=== PATIENT | male | born 1930 | race Caucasian/White ===

== ENCOUNTER → 2017-06-06 | Day surgery (SDC) | payer MEDICARE, OTHER | LOC: JD.LAB 13:20 | PROVIDERS: ATTEND Orthopaedic Surgery | DX: Z22.322 Carrier or suspected carrier of Methicillin resistant Staphylococcus aureus (principal); M17.12 Unilateral primary osteoarthritis, left knee | CPT/HCPCS: 87641 ==

== ENCOUNTER 2017-06-11 12:59 | Emergency (ER) | payer MEDICARE, OTHER ==
[2017-06-11] MEDS ORDERED: Sodium Chloride 0.9% 10 ML Syringe FLUSH PRN (13:32)
--- NOTE | 2017-06-11 15:20 | EDM.PDOC ---
ED HPI GENERAL MEDICAL PROBLEM - General Chief Complaint: Chest Pain Stated Complaint: CHEST PAIN Time Seen by Provider: 06/11/17 13:32 Source of Information: Reports: Patient, RN Notes Reviewed - History of Present Illness INITIAL COMMENTS - FREE TEXT/NARRATIVE: 86-year-old gentleman comes in with left lower anterior chest discomfort. He was out doing some yard work this morning about 3 hours ago when he did have onset of symptoms. He describes this as a weight or heaviness across the left lower part of his chest without radiation. He was mildly short of breath but that is past. The discomfort now is very mild but still present. No abdominal pain, nausea vomiting or diaphoresis. He does have history of hypertension. He does not have known history of coronary artery disease and no history of diabetes. He does not smoke Left Chest Pain Score (Numeric/FACES): 6 - Related Data Allergies Allergy/AdvReac Type Severity Reaction Status Date / Time No Known Allergies Allergy Verified 06/11/17 13:12 Home Meds: Home Meds Finasteride [Proscar] 5 mg PO DAILY 06/15/15 [History] Latanoprost 2.5 ml OP DAILY 06/15/15 [History] Levothyroxine Sodium [Synthroid] 112 mcg PO DAILY 06/15/15 [History] Losartan [Cozaar] 25 mg PO DAILY 06/15/15 [History] Omeprazole 20 mg PO DAILY 06/15/15 [History] Tamsulosin [Flomax] 0.4 mg PO DAILY 06/15/15 [History] Simvastatin [Zocor] 20 mg PO BEDTIME 05/24/16 [History] Past Medical History HEENT History: Reports: Cataract, Retinal Detachment Other HEENT History: wears glasses Cardiovascular History: Reports: Heart Failure, High Cholesterol, Hypertension Other Cardiovascular History: edema, dysrhytmias Respiratory History: Reports: None Gastrointestinal History: Reports: Colon Polyp, GERD, Hiatal Hernia, Other (See Below) Other Gastrointestinal History: Loera's esophagus, epigstric pain, umbilico hernia Genitourinary History: Reports: BPH, Renal Disease Other Genitourinary History: stage two renal disease Musculoskeletal History: Reports: Other (See Below) Other Musculoskeletal History: plantar fascitis Neurological History: Reports: None Psychiatric History: Reports: None Endocrine/Metabolic History: Reports: Hypothyroidism Hematologic History: Reports: Other (See Below) Other Hematologic History: thrombocytopenia Immunologic History: Reports: None 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 Dermatologic History: Reports: None Other Dermatologic History: Atypical mole - Infectious Disease History Infectious Disease History: Reports: None - Past Surgical History HEENT Surgical History: Reports: Detached Retina, Naso-Sinus Surgery Male Surgical History: Reports: None Endocrine Surgical History: Reports: None Musculoskeletal Surgical History: Reports: None Dermatological Surgical History: Reports: None Social & Family History - Family History Family Medical History: Noncontributory Oncologic: Reports: Prostate - Tobacco Use Smoking Status *Q: Former Smoker Years of Tobacco use: 20 Used Tobacco, but Quit: Yes Month Tobacco Last Used: 45 years ago Second Hand Smoke Exposure: No - Caffeine Use Caffeine Use: Reports: Coffee - Recreational Drug Use Recreational Drug Use: No - Living Situation & Occupation Living situation: Reports: , with Spouse Occupation: Retired ED ROS GENERAL - Review of Systems Review Of Systems: See Below Constitutional: Denies: Fever, Chills, Diaphoresis HEENT: Denies: Sinus Problem, Throat Pain Respiratory: Reports: Shortness of Breath (Mild). Denies: Pleuritic Chest Pain Cardiovascular: Reports: Chest Pain (, gone). Denies: Lightheadedness, Palpitations, Syncope GI/Abdominal: Denies: Abdominal Pain, Nausea, Vomiting Musculoskeletal: Denies: Neck Pain, Shoulder Pain, Arm Pain, Back Pain Skin: Reports: No Symptoms Neurological: Reports: No Symptoms ED EXAM, GENERAL - Physical Exam Exam: See Below General Appearance: Alert, No Apparent Distress Eye Exam: Bilateral Eye: PERRL Throat/Mouth: Normal Inspection, Normal Oropharynx Head: Atraumatic. No: Facial Swelling Neck: Supple, Full Range of Motion, Other. No: Lymphadenopathy (L), Lymphadenopathy (R) Respiratory/Chest: No Respiratory Distress (No JVD), Lungs Clear, Normal Breath Sounds, Chest Non-Tender Cardiovascular: Regular Rate, Rhythm GI/Abdominal: Soft, Non-Tender. No: Guarding Back Exam: Normal Inspection. No: CVA Tenderness (L), CVA Tenderness (R) Extremities: Normal Inspection, Normal Range of Motion Neurological: Oriented, No Motor/Sensory Deficits Skin Exam: Warm, Dry, Normal Color EKG INTERPRETATION EKG Date: 06/11/17 Rhythm: NSR P-Wave: Present QRS: Normal ST-T: Normal Course - Vital Signs Last Recorded V/S: Last Vital Signs Temp 97.5 F 06/11/17 13:08 Pulse 72 06/11/17 14:22 Resp 14 06/11/17 13:08 BP 183/94 H 06/11/17 14:22 Pulse Ox 94 L 06/11/17 13:08 - Orders/Labs/Meds Orders: Active Orders 24 hr Category Date Time Status EKG 12 Lead [EKG Documentation Completion] [] STAT Care 06/11/17 13:13 Active Peripheral IV Care [RC] . DIRECTED Care 06/11/17 13:34 Active Sodium Chloride 0.9% [Saline Flush] Med 06/11/17 13:32 Active 10 ml FLUSH ASDIRECTED PRN Peripheral IV Insertion Adult [OM.PC] Stat Oth 06/11/17 13:34 Ordered Medication Orders Sodium Chloride (Saline Flush) 10 ml FLUSH ASDIRECTED PRN PRN Reason: Keep Vein Open Last Admin: 06/11/17 14:04 Dose: 10 ml Labs: Laboratory Tests 06/11/17 06/11/17 06/11/17 Range/Units 13:11 13:11 13:11 WBC 7.19 (4.23-9.07) K/mm3 RBC 5.08 (4.63-6.08) M/mm3 Hgb 16.2 (13.7-17.5) gm/L Hct 47.8 (40.1-51.0) % MCV 94.1 H (79.0-92.2) fl MCH 31.9 (25.7-32.2) pg MCHC 33.9 (32.2-35.5) g/dl RDW Std Deviation 45.1 H (35.1-43.9) fL Plt Count 177 (163-337) K/mm3 MPV 10.6 (9.4-12.3) fl Neut % (Auto) 68.9 H (34.0-67.9) % Lymph % (Auto) 21.3 L (21.8-53.1) % Parmer % (Auto) 9.0 (5.3-12.2) % Eos % (Auto) 0.4 L (0.8-7.0) Baso % (Auto) 0.1 (0.1-1.2) % Neut # (Auto) 4.95 (1.78-5.38) K/mm3 Lymph # (Auto) 1.53 (1.32-3.57) K/mm3 [place]mer # (Auto) 0.65 (0.30-0.82) K/mm3 Eos # (Auto) 0.03 L (0.04-0.54) K/mm3 Baso # (Auto) 0.01 (0.01-0.08) K/mm3 Sodium 141 (136-145) mEq/L Potassium 4.2 (3.5-5.1) mEq/L Chloride 106 (98-107) mEq/L Carbon Dioxide 26 (21-32) mEq/L Anion Gap 13.2 (5-15) BUN 15 (7-18) mg/dL Creatinine 1.2 (0.7-1.3) mg/dL Est Cr Clr Drug Dosing 48.81 mL/min Estimated GFR (MDRD) 58 (>60) mL/min BUN/Creatinine Ratio 12.5 L (14-18) Glucose 106 (83-115) mg/dL Calcium 9.8 (8.5-10.1) mg/dL Total Bilirubin 0.9 (0.2-1.0) mg/dL AST 16 (15-37) U/L ALT 28 (16-63) U/L Alkaline Phosphatase 93 (46-116) U/L Troponin I 0.018 (0.00-0.056) ng/mL B-Natriuretic Peptide < 15 (0-100) pg/mL Total Protein 6.7 (6.4-8.2) g/dl Albumin 3.7 (3.4-5.0) g/dl Globulin 3.0 gm/dL Albumin/Globulin Ratio 1.2 (1-2) 06/11/17 Range/Units 15:36 WBC (4.23-9.07) K/mm3 RBC (4.63-6.08) M/mm3 Hgb (13.7-17.5) gm/L Hct (40.1-51.0) % MCV (79.0-92.2) fl MCH (25.7-32.2) pg MCHC (32.2-35.5) g/dl RDW Std Deviation (35.1-43.9) fL Plt Count (163-337) K/mm3 MPV (9.4-12.3) fl Neut % (Auto) (34.0-67.9) % Lymph % (Auto) (21.8-53.1) % [place]mer % (Auto) (5.3-12.2) % Eos % (Auto) (0.8-7.0) Baso % (Auto) (0.1-1.2) % Neut # (Auto) (1.78-5.38) K/mm3 Lymph # (Auto) (1.32-3.57) K/mm3 [place]mer # (Auto) (0.30-0.82) K/mm3 Eos # (Auto) (0.04-0.54) K/mm3 Baso # (Auto) (0.01-0.08) K/mm3 Sodium (136-145) mEq/L Potassium (3.5-5.1) mEq/L Chloride (98-107) mEq/L Carbon Dioxide (21-32) mEq/L Anion Gap (5-15) BUN (7-18) mg/dL Creatinine (0.7-1.3) mg/dL Est Cr Clr Drug Dosing mL/min Estimated GFR (MDRD) (>60) mL/min BUN/Creatinine Ratio (14-18) Glucose (83-115) mg/dL Calcium (8.5-10.1) mg/dL Total Bilirubin (0.2-1.0) mg/dL AST (15-37) U/L ALT (16-63) U/L Alkaline Phosphatase (46-116) U/L Troponin I 0.017 (0.00-0.056) ng/mL B-Natriuretic Peptide (0-100) pg/mL Total Protein (6.4-8.2) g/dl Albumin (3.4-5.0) g/dl Globulin gm/dL Albumin/Globulin Ratio (1-2) Meds: Medications Generic Name Dose Route Start Last Admin Trade Name Freq PRN Reason Stop Dose Admin Sodium Chloride 10 ml 06/11/17 13:32 06/11/17 14:04 Saline Flush FLUSH 10 ml ASDIRECTED PRN Administration Keep Vein Open - Re-Assessments/Exams Free Text/Narrative Re-Assessment/Exam: 06/11/17 15:23 Initial troponin came back 0.018. Patient still does have very slight lower left anterior chest discomfort. I did want to given aspirin but he is scheduled for knee replacement next week. He has been strictly informed he is not to take any type of aspirin, anti-inflammatory or other blood thinner type medication. We will hold off on aspirin for now. We'll plan to do a repeat troponin around 2 -1/2 hours after his initial troponin was drawn. 06/11/17 16:55. Repeat troponin came back 0.017. He is resting pain-free, quality assurance monitor body showed sinus rhythm with no significant ectopy. He wants to go home. He is scheduled for total knee replacement next Sunday 7 days from now. We are going to try see if we can get an appointment for him to see Dr. Dong, his regular medical provider for tomorrow or Sunday. Departure - Departure Time of Disposition: 16:53 Disposition: Home, Self-Care 01 Condition: Fair Clinical Impression: Atypical chest pain Instructions: Chest Wall Pain Referrals: Carl Esquivel MD [Primary Care Provider] - Forms: ED Department Discharge Additional Instructions: Rest, drink plenty of water to maintain hydration, avoid exertional activity the remainder of this week, avoid severe heat exposure, you have an appointment to see Dr. Dong in follow-up June 14 at 4:15 PM, return to ED as needed if symptoms recurring or worsening in any way - My Orders Last 24 Hours: My Active Orders 06/11/17 13:13 EKG 12 Lead [EKG Documentation Completion] [RC] STAT 06/11/17 13:32 Sodium Chloride 0.9% [Saline Flush] 10 ml FLUSH ASDIRECTED PRN 06/11/17 13:34 Peripheral IV Care [RC] . DIRECTED Peripheral IV Insertion Adult [OM.PC] Stat - Assessment/Plan Last 24 Hours: My Active Orders 06/11/17 13:13 EKG 12 Lead [EKG Documentation Completion] [RC] STAT 06/11/17 13:32 Sodium Chloride 0.9% [Saline Flush] 10 ml FLUSH ASDIRECTED PRN 06/11/17 13:34 Peripheral IV Care [RC] . DIRECTED Peripheral IV Insertion Adult [OM.PC] Stat
--- NOTE | 2017-06-11 15:44 | CR ---
Chest: Portable view of the chest was obtained. Comparison: Previous chest x-ray of 12/25/15. Heart size appears within normal limits for portable technique. Tortuous thoracic aorta is seen. Slight linear scarring noted within the right mid to lower lung. Lungs otherwise are clear. Bony structures are grossly intact. Previous right shoulder surgery is seen. Impression: 1. Incidental findings. Nothing acute is appreciated on portable chest x-ray. Diagnostic code #2
[2017-06-11 18:05] VITALS: BP 158/85
== END 2017-06-11 17:25 | disposition home or self-care (01) ==
LOC: JD.ED 12:59
DX: R07.89 Other chest pain (principal); E78.00 Pure hypercholesterolemia, unspecified; K21.9 Gastro-esophageal reflux disease without esophagitis; I13.0 Hypertensive heart and chronic kidney disease with heart failure and stage 1 through stage 4 chronic kidney disease, or unspecified chronic kidney disease; N18.2 Chronic kidney disease, stage 2 (mild); I50.9 Heart failure, unspecified; E03.9 Hypothyroidism, unspecified; Z98.890 Other specified postprocedural states; Z87.891 Personal history of nicotine dependence; Z79.899 Other long term (current) drug therapy
CPT/HCPCS: 36415; 71010; 80053; 83880; 84484; 85025; 93005; 99285; J7050; 99283

== ENCOUNTER 2017-06-21 07:48 | Emergency (ER) | payer MEDICARE, OTHER ==
[2017-06-21] MEDS ORDERED: Nitroglycerin 2% Oint 1 GM UD Packet TOP ONE (07:59)
[2017-06-21] MEDS ORDERED: Sodium Chloride 0.9% 10 ML Syringe FLUSH PRN (07:59)
[2017-06-21] MEDS ORDERED: Aspirin 81 MG Tab.Chew PO ONE (07:59)
--- NOTE | 2017-06-21 08:49 | EDM.PDOC ---
<Fercho Mast Kobe - Last Filed: 06/21/17 09:31> ED HPI GENERAL MEDICAL PROBLEM - General Chief Complaint: Chest Pain Stated Complaint: BROUGHT FROM RADIOLOGY Time Seen by Provider: 06/21/17 07:58 Source of Information: Reports: Patient, Provider (Initial anger, medical provider overseeing cardiac stress exam a short time ago), RN Notes Reviewed - History of Present Illness INITIAL COMMENTS - FREE TEXT/NARRATIVE: This is an 86-year-old gentleman that is been sent over from radiology. He just started a treadmill cardiac stress exam. He only went about 1 minute when he became short of breath and started having achiness and tightness of the left chest. He did not have pain going into the arm. They sat him down and let him rest for about 5 minutes. He continued to have some discomfort of the left chest so it was felt he should be sent over here to the ED for evaluation. Do a 12-lead EKG that did not show acute changes. He is no longer short of breath. He had no nausea vomiting or diaphoresis with this. Does have known history of hypertension. He is not diabetic. He was seen here in the ED about 10 days ago after experiencing onset of chest discomfort out doing yard work and quite severe heat. Cardiac workup at that time was normal. Serial troponins were done and they did remain negative. 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 Left Chest Pain Score (Numeric/FACES): 5 - Related Data Allergies Allergy/AdvReac Type Severity Reaction Status Date / Time No Known Allergies Allergy Verified 06/21/17 07:53 Home Meds: Home Meds Finasteride [Proscar] 5 mg PO DAILY 06/15/15 [History] Latanoprost 2.5 ml OP DAILY 06/15/15 [History] Levothyroxine Sodium [Synthroid] 112 mcg PO DAILY 06/15/15 [History] Losartan [Cozaar] 25 mg PO DAILY 06/15/15 [History] Omeprazole 20 mg PO DAILY 06/15/15 [History] Tamsulosin [Flomax] 0.4 mg PO DAILY 06/15/15 [History] Simvastatin [Zocor] 20 mg PO BEDTIME 05/24/16 [History] Aspirin 81 mg PO DAILY #30 tab.chew 06/21/17 [Rx] Brimonidine [Alphagan 0.2% Ophth Soln] 1 drop EYEBOTH DAILY 06/21/17 [History] Isosorbide Mononitrate [Imdur] 30 mg PO DAILY #30 tab.er 06/21/17 [Rx] Metoprolol Tartrate 12.5 mg PO BID #30 tablet 06/21/17 [Rx] Past Medical History HEENT History: Reports: Cataract, Retinal Detachment Other HEENT History: wears glasses Cardiovascular History: Reports: Heart Failure, High Cholesterol, Hypertension Other Cardiovascular History: edema, dysrhytmias Respiratory History: Reports: None Gastrointestinal History: Reports: Colon Polyp, GERD, Hiatal Hernia, Other (See Below) Other Gastrointestinal History: Loera's esophagus, epigstric pain, umbilico hernia Genitourinary History: Reports: BPH, Renal Disease Other Genitourinary History: stage two renal disease Musculoskeletal History: Reports: Other (See Below) Other Musculoskeletal History: plantar fascitis Neurological History: Reports: None Psychiatric History: Reports: None Endocrine/Metabolic History: Reports: Hypothyroidism Hematologic History: Reports: Other (See Below) Other Hematologic History: thrombocytopenia Immunologic History: Reports: None 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 Dermatologic History: Reports: None Other Dermatologic History: Atypical mole - Infectious Disease History Infectious Disease History: Reports: None - Past Surgical History HEENT Surgical History: Reports: Detached Retina, Naso-Sinus Surgery Male Surgical History: Reports: None Endocrine Surgical History: Reports: None Musculoskeletal Surgical History: Reports: None Dermatological Surgical History: Reports: None Social & Family History - Family History Family Medical History: Noncontributory Oncologic: Reports: Prostate - Tobacco Use Smoking Status *Q: Never Smoker Years of Tobacco use: 20 Used Tobacco, but Quit: Yes Month Tobacco Last Used: 45 years ago Second Hand Smoke Exposure: No - Caffeine Use Caffeine Use: Reports: None - Recreational Drug Use Recreational Drug Use: No - Living Situation & Occupation Living situation: Reports: , with Spouse Occupation: Retired ED ROS GENERAL - Review of Systems Review Of Systems: See Below Constitutional: Denies: Fever, Chills, Diaphoresis HEENT: Reports: No Symptoms Respiratory: Reports: Shortness of Breath. Denies: Pleuritic Chest Pain, Cough Cardiovascular: Reports: Chest Pain (Mild achiness remains left anterior chest) , Lightheadedness (Mild) GI/Abdominal: Denies: Abdominal Pain, Nausea, Vomiting Musculoskeletal: Denies: Neck Pain, Shoulder Pain, Arm Pain Skin: Reports: No Symptoms Neurological: Reports: Dizziness (Mild now better) ED EXAM, GENERAL - Physical Exam Exam: See Below General Appearance: Alert, No Apparent Distress Eye Exam: Bilateral Eye: PERRL Throat/Mouth: Normal Inspection, Normal Oropharynx Head: Atraumatic. No: Facial Swelling Neck: Supple, Full Range of Motion, Other Respiratory/Chest: No Respiratory Distress (No JVD), Lungs Clear, Normal Breath Sounds, No Accessory Muscle Use. No: Rales, Rhonchi, Wheezing Cardiovascular: Regular Rate, Rhythm GI/Abdominal: Soft, Non-Tender. No: Guarding Back Exam: No: CVA Tenderness (L), CVA Tenderness (R) Extremities: Normal Inspection. No: Pedal Edema, Leg Pain, Increased Warmth, Redness Neurological: Alert, Oriented, No Motor/Sensory Deficits EKG INTERPRETATION EKG Date: 06/21/17 [place]: Normal P-Wave: Present QRS: Normal ST-T: Normal Course - Vital Signs Last Recorded V/S: Last Vital Signs Temp 36.7 C 06/21/17 08:00 Pulse 78 06/21/17 07:50 Resp 17 06/21/17 10:00 BP 154/77 H 06/21/17 10:00 Pulse Ox 94 L 06/21/17 10:00 - Orders/Labs/Meds Orders: Active Orders 24 hr Category Date Time Status EKG 12 Lead [EKG Documentation Completion] [RC] STAT Care 06/21/17 07:59 Active EKG 12 Lead [EKG Documentation Completion] [RC] STAT Care 06/21/17 11:33 Active Peripheral IV Care [RC] . DIRECTED Care 06/21/17 08:00 Active Losartan [Cozaar] Med 06/21/17 09:00 Active 25 mg PO DAILY Sodium Chloride 0.9% [Saline Flush] Med 06/21/17 07:59 Active 10 ml FLUSH ASDIRECTED PRN Peripheral IV Insertion Adult [OM.PC] Stat Oth 06/21/17 07:59 Ordered Medication Orders Losartan Potassium (Cozaar) 25 mg PO DAILY [facility] Last Admin: 06/21/17 08:14 Dose: 25 mg Sodium Chloride (Saline Flush) 10 ml FLUSH ASDIRECTED PRN PRN Reason: Keep Vein Open Last Admin: 06/21/17 08:06 Dose: 10 ml Labs: Laboratory Tests 06/21/17 06/21/17 06/21/17 Range/Units 08:15 08:15 11:04 Sodium 141 (136-145) mEq/L Potassium 4.3 (3.5-5.1) mEq/L Chloride 105 (98-107) mEq/L Carbon Dioxide 32 (21-32) mEq/L Anion Gap 8.3 (5-15) BUN 17 (7-18) mg/dL Creatinine 1.2 (0.7-1.3) mg/dL Est Cr Clr Drug Dosing TNP Estimated GFR (MDRD) 58 (>60) mL/min BUN/Creatinine Ratio 14.2 (14-18) Glucose 130 H (83-115) mg/dL Calcium 10.2 H (8.5-10.1) mg/dL Total Bilirubin 0.7 (0.2-1.0) mg/dL AST 12 L (15-37) U/L ALT 25 (16-63) U/L Alkaline Phosphatase 82 (46-116) U/L Troponin I 0.021 0.025 (0.00-0.056) ng/mL B-Natriuretic Peptide < 15 (0-100) pg/mL Total Protein 6.4 (6.4-8.2) g/dl Albumin 3.5 (3.4-5.0) g/dl Globulin 2.9 gm/dL Albumin/Globulin Ratio 1.2 (1-2) Meds: Medications Generic Name Dose Route Start Last Admin Trade Name Freq PRN Reason Stop Dose Admin Losartan Potassium 25 mg 06/21/17 09:00 06/21/17 08:14 Cozaar PO 25 mg DAILY ROSE Administration Sodium Chloride 10 ml 06/21/17 07:59 06/21/17 08:06 Saline Flush FLUSH 10 ml ASDIRECTED PRN Administration Keep Vein Open Discontinued Medications Generic Name Dose Route Start Last Admin Trade Name Freq PRN Reason Stop Dose Admin Acetaminophen 975 mg 06/21/17 09:23 06/21/17 09:28 Tylenol PO 06/21/17 09:24 975 mg NOW ONE Administration Aspirin 324 mg 06/21/17 07:59 06/21/17 08:06 Aspirin PO 06/21/17 08:00 324 mg ONETIME ONE Administration Nitroglycerin 1 gm 06/21/17 07:59 06/21/17 08:06 Nitro-Bid 2% TOP 06/21/17 08:00 1 gm ONETIME ONE Administration - Re-Assessments/Exams Free Text/Narrative Re-Assessment/Exam: 06/21/17 09:31 Patient's EKG over in radiology did not show acute findings nor does his EKG on arrival here to the ED. His rate his pain at about a 4-5, left anterior chest without radiation. Not look uncomfortable. The pressure was mildly elevated on arrival that has come down. He is been in sinus rhythm with no significant ectopy. Initial troponins come back 0.021. Due to onset of pain with exertion this morning he definitely needs a serial troponin. He has been given aspirin 324 mg by mouth. At this time we are also giving him a dose of Tylenol. He does have one-inch nitro paste on. We will plan to do that 3 hours from the first, around 11 AM. We are at change of shift. I will be transferring his care to Dr. Lise Mast. Departure - Departure Disposition: Home, Self-Care 01 Clinical Impression: Chest pain Qualifiers: Chest pain type: other chest pain Qualified Code(s): R07.89 - Other chest pain Prescriptions: Aspirin 81 mg PO DAILY #30 tab.chew Isosorbide Mononitrate [Imdur] 30 mg PO DAILY #30 tab.er Metoprolol Tartrate 12.5 mg PO BID #30 tablet Referrals: Carl Esquivel MD [Primary Care Provider] - Forms: ED Department Discharge Additional Instructions: 1. Take aspirin, isosorbide, and metoprolol as prescribed 2. Follow up with cardiology: [facility] and [place] 8:30 AM on June 25 Do NOT eat or drink anything after midnight before your appointment (8 hours before your appointment) Bring all of your medications Bring your medical records from us today Someone else will need to be able to drive you home in case you are given medications that make it unsafe for you to drive Call [phone] if you need to talk to someone at the clinic about your appointment 3. Also follow up with Dr. Dong as soon as possible 4. Return to the ED if you have chest pain, shortness of breath, lightheadedness or passing out episode, or any other concerning symptoms - My Orders Last 24 Hours: My Active Orders 06/21/17 11:33 EKG 12 Lead [EKG Documentation Completion] [RC] STAT - Assessment/Plan Last 24 Hours: My Active Orders 06/21/17 11:33 EKG 12 Lead [EKG Documentation Completion] [RC] STAT <Rm Mast - Last Filed: 06/21/17 12:20> Course - Re-Assessments/Exams Free Text/Narrative Re-Assessment/Exam: 06/21/17 11:56 Repeat troponin negative. Patient is feeling well and would like to go home. He did have significant exertional chest pain this morning that improved with nitroglycerin. I discussed with pipe fitter welding solution analyst for Dr.Mahr Fabio, who recommends starting isosorbide mononitrate 30 mg daily, aspirin, and metoprolol 12.5 mg twice a day. He will facilitate getting the patient close cardiology follow-up. Departure - Departure Time of Disposition: 12:16
[2017-06-21] MEDS ORDERED: Losartan 25 MG Tab PO SCH (09:00)
--- NOTE | 2017-06-21 09:20 | CR ---
Chest: Portable view of the chest was obtained. Comparison: Previous chest x-ray of 06/11/17. Heart size appears within normal limits for portable technique. Tortuous thoracic aorta is seen. Lungs are clear with no acute infiltrates. Bony structures show mild scoliosis within the spine. Impression: 1. Incidental findings. Nothing acute is seen. No significant change from prior chest x-ray. Diagnostic code #2
[2017-06-21] MEDS ORDERED: Acetaminophen 325 MG Tab PO ONE (09:23)
[2017-06-21 12:58] VITALS: BP 156/68
--- NOTE | 2017-06-21 21:57 | STRESS ---
REQUESTING PHYSICIAN: DATE: 06/21/2017 STRESS TEST REPORT ORDERING PROVIDER: Carl Dong MD. INDICATION: Chest pain. PROTOCOL: Gallito protocol. The patient was initially started on the treadmill at phase 1 Gallito protocol. Approximately 30-45 seconds in, he experienced acute substernal chest pain, which did not resolve. He asked that the test be stopped. He did sit back down into the chair. Blood pressure was 180s over 90s at that time. Heart rates in the 90s to 100s. There were no ST or T-wave changes during the short amount of testing. Test was going to be convert testing to Lexiscan test, however, when I returned to the room approximately 5 minutes later after nuclear tech and EKG stress laboratory miller had prepped him for the testing, the chest pain/heaviness had not resolved. He appeared to be in mild distress. Sitting upright in the chair with hands on his chest, and mildly short of breath. A decision was made at that time for patient to be transported to the ER for further evaluation of this substernal chest pain and heaviness. EKG continued to be unremarkable at that time. I did walk to the emergency room and gave Dr. Mast verbal report of transpiring events and patient history. The patient was wheeled to the emergency room via wheelchair, in stable condition but with persisting chest pain. [email or web address] /[id number] CC: Dr. Carl MIRELES
== END 2017-06-21 12:45 | disposition home or self-care (01) ==
LOC: JD.ED 07:48
DX: R07.89 Other chest pain (principal); I11.0 Hypertensive heart disease with heart failure; I50.9 Heart failure, unspecified; E78.00 Pure hypercholesterolemia, unspecified; K21.9 Gastro-esophageal reflux disease without esophagitis; E03.9 Hypothyroidism, unspecified; D69.6 Thrombocytopenia, unspecified; Z98.890 Other specified postprocedural states; Z79.82 Long term (current) use of aspirin; Z79.899 Other long term (current) drug therapy; Z87.891 Personal history of nicotine dependence; I25.10 Atherosclerotic heart disease of native coronary artery without angina pectoris; R07.2 Precordial pain
CPT/HCPCS: 36415; 71010; 80053; 83880; 84484; 93005; 93017; 99285; A9270; J7030; J7050; 99284

== ENCOUNTER 2017-12-13 08:49 | Emergency (ER) | payer MEDICARE, OTHER ==
[2017-12-13] MEDS ORDERED: Sodium Chloride 0.9% 10 ML Syringe FLUSH PRN (08:59)
[2017-12-13 09:01] VITALS: BP 137/84
--- NOTE | 2017-12-13 09:31 | CR ---
Chest: Portable view of the chest was obtained. Comparison: Prior chest x-ray of 06/21/17. Heart size is normal. Tortuous thoracic aorta is seen. Slight linear scar is noted within the right midlung. Lungs otherwise are clear. Bony structures are grossly intact. Impression: 1. Nothing acute is identified on portable chest x-ray. Diagnostic code #2
[2017-12-13] MEDS ORDERED: Iopamidol 755 Mg/ML 100 ML Bottle IVPUSH ONE (10:04)
[2017-12-13] MEDS ORDERED: Sodium Chloride 0.9% 10 ML Syringe FLUSH ONE (10:04)
[2017-12-13] MEDS ORDERED: Diazepam 2 MG Tab PO ONE (10:14)
[2017-12-13] MEDS ORDERED: Sodium Chloride 0.9% 100 ML IV SCH (10:15)
--- NOTE | 2017-12-13 11:07 | CT ---
CT chest Technique: Multiple axial sections through the chest were obtained. Intravenous contrast was utilized. Study performed as a pulmonary angiogram protocol. Comparison: No prior chest CT, previous chest x-ray of 12/13/17. Findings: Pulmonary arteries are not optimally opacified. No filling defects are seen to indicate pulmonary embolism within the main or segmental branches. Smaller subsegmental pulmonary emboli could be missed. Mediastinum and hilar regions show no adenopathy or mass. Mild atherosclerotic calcification is seen within the thoracic aorta. Prominent coronary artery calcification is seen. No pericardial thickening is identified. Small low-density lesions are scattered within the liver most likely representing minimal cysts. Small hiatal hernia is noted. Mild interstitial change is noted within both lung bases which is felt compatible with slight fibrosis. No acute pulmonary densities are thought to be present. Bone window settings were reviewed showing scattered degenerative endplate spurring within the spine. Previous right shoulder surgery is noted. Impression: 1. Less than optimal opacification of the pulmonary arteries. No evidence of pulmonary embolism within the main or segmental branches. 2. Other incidental findings as noted above. Diagnostic code #2
--- NOTE | 2017-12-13 11:42 | EDM.PDOC ---
ED HPI GENERAL MEDICAL PROBLEM - General Chief Complaint: Chest Pain Stated Complaint: [facility] Time Seen by Provider: 12/13/17 08:54 Source of Information: Reports: Patient History Limitations: Reports: No Limitations - History of Present Illness INITIAL COMMENTS - FREE TEXT/NARRATIVE: The patient presents with left sided chest pain from the clinic. The patient was woken up this morning with left sided chest pain at 3am. He went to [facility] and saw his doctor Dr Castro. Dr Castro did an EKG that showed nothing acute, gave him aspirin, bhavani labs and sent him to the ER. He was given 2 sprays of nitro by EMS and the pain was gone when he got here. He has no cardiac history. He has a slight cough. He has no shortness of breath with this. He has no fever, chills, abdominal pain, nausea or vomiting. Onset: Sudden Duration: Hour(s): (3am) Location: Reports: Chest Quality: Reports: Sharp Severity: Moderate Improves with: Reports: None Worsens with: Reports: None Associated Symptoms: Reports: Chest Pain, Cough. Denies: Confusion, Fever/ Chills, Headaches, Nausea/Vomiting, Shortness of Breath Treatments [employer] CH[employer] FEEDER: Reports: EKG, IV/IO, Nitroglycerin, Oxygen, Other (see below) Other Treatments [employer] CHAIN FEEDER: labs - Related Data Allergies Allergy/AdvReac Type Severity Reaction Status Date / Time No Known Allergies Allergy Verified 12/13/17 09:01 Home Meds: Home Meds Finasteride [Proscar] 5 mg PO DAILY 06/15/15 [History] Latanoprost 2.5 ml OP DAILY 06/15/15 [History] Levothyroxine Sodium [Synthroid] 112 mcg PO DAILY 06/15/15 [History] Losartan [Cozaar] 50 mg PO DAILY 06/15/15 [History] Omeprazole 20 mg PO DAILY 06/15/15 [History] Tamsulosin [Flomax] 0.4 mg PO DAILY 06/15/15 [History] Simvastatin [Zocor] 20 mg PO BEDTIME 05/24/16 [History] Aspirin 81 mg PO DAILY #30 tab.chew 06/21/17 [Rx] Brimonidine [Alphagan 0.2% Ophth Soln] 1 drop EYEBOTH DAILY 06/21/17 [History] Past Medical History HEENT History: Reports: Cataract, Hard of Hearing, Retinal Detachment Other HEENT History: wears glasses and hearing aides Cardiovascular History: Reports: Heart Failure, High Cholesterol, Hypertension Other Cardiovascular History: edema, dysrhytmias Respiratory History: Reports: None Gastrointestinal History: Reports: Colon Polyp, GERD, Hiatal Hernia, Other (See Below) Other Gastrointestinal History: Loera's esophagus, epigstric pain, umbilico hernia Genitourinary History: Reports: BPH, Renal Disease Other Genitourinary History: stage two renal disease Musculoskeletal History: Reports: Other (See Below) Other Musculoskeletal History: plantar fascitis Neurological History: Reports: None Psychiatric History: Reports: None Endocrine/Metabolic History: Reports: Hypothyroidism Hematologic History: Reports: Other (See Below) Other Hematologic History: thrombocytopenia Immunologic History: Reports: None 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 Other Oncologic History: 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, has had 2-3 years, very slow growing Dermatologic History: Reports: None Other Dermatologic History: Atypical mole - Infectious Disease History Infectious Disease History: Reports: None - Past Surgical History HEENT Surgical History: Reports: Detached Retina, Naso-Sinus Surgery Male Surgical History: Reports: None Endocrine Surgical History: Reports: None Musculoskeletal Surgical History: Reports: None Dermatological Surgical History: Reports: None Social & Family History - Family History Family Medical History: Noncontributory Oncologic: Reports: Prostate - Tobacco Use Smoking Status *Q: Former Smoker Years of Tobacco use: 20 Used Tobacco, but Quit: No Month Tobacco Last Used: 45 years ago Second Hand Smoke Exposure: No - Caffeine Use Caffeine Use: Reports: None - Recreational Drug Use Recreational Drug Use: No - Living Situation & Occupation Living situation: Reports: , with Spouse Occupation: Retired ED ROS GENERAL - Review of Systems Review Of Systems: See Below Constitutional: Reports: No Symptoms HEENT: Reports: No Symptoms Respiratory: Reports: Cough. Denies: Shortness of Breath Cardiovascular: Reports: Chest Pain Endocrine: Reports: No Symptoms GI/Abdominal: Reports: No Symptoms : Reports: No Symptoms Musculoskeletal: Reports: No Symptoms ED EXAM, GENERAL - Physical Exam Exam: See Below Exam Limited By: No Limitations General Appearance: Alert, No Apparent Distress Ears: Normal External Exam Nose: Normal Inspection Head: Atraumatic, Normocephalic Neck: Normal Inspection Respiratory/Chest: No Respiratory Distress, Lungs Clear, Normal Breath Sounds Cardiovascular: Regular Rate, Rhythm, No Edema, No Murmur GI/Abdominal: Soft, Non-Tender, No Organomegaly, No Mass Back Exam: Normal Inspection Extremities: Normal Inspection Neurological: Alert, Oriented, No Motor/Sensory Deficits EKG INTERPRETATION EKG Date: 12/13/17 Time: 08:58 Rhythm: NSR Rate (Beats/Min): 85 [place]: Normal P-Wave: Present QRS: Normal ST-T: Normal QT: Prolonged Course - Vital Signs Last Recorded V/S: Last Vital Signs Temp 97.5 F 12/13/17 08:55 Pulse 93 12/13/17 08:55 Resp 16 12/13/17 08:55 BP 137/84 12/13/17 08:55 Pulse Ox 89 L 12/13/17 08:55 - Orders/Labs/Meds Orders: Active Orders 24 hr Category Date Time Status Cardiac Monitoring [RC] . DIRECTED Care 12/13/17 08:59 Active EKG Documentation Completion [RC] ASDIRECTED Care 12/13/17 11:42 Active EKG Documentation Completion [RC] STAT Care 12/13/17 08:59 Active Oxygen Therapy [RC] PRN Care 12/13/17 08:59 Active Peripheral IV Care [RC] . DIRECTED Care 12/13/17 08:59 Active Sodium Chloride 0.9% [Normal Saline] 100 ml Med 12/13/17 10:15 Active IV ASDIRECTED Sodium Chloride 0.9% [Saline Flush] Med 12/13/17 08:59 Active 10 ml FLUSH ASDIRECTED PRN Peripheral IV Insertion Adult [OM.PC] Stat Oth 12/13/17 08:59 Ordered EKG 12 Lead [EK] Stat Ther 12/13/17 11:41 Ordered Medication Orders Sodium Chloride (Normal Saline) 100 mls @ 60 mls/hr IV ASDIRECTED ROSE Last Admin: 12/13/17 10:48 Dose: 60 mls/hr Sodium Chloride (Saline Flush) 10 ml FLUSH ASDIRECTED PRN PRN Reason: Keep Vein Open Last Admin: 12/13/17 09:10 Dose: 10 ml Labs: Laboratory Tests 12/13/17 Range/Units 11:55 Troponin I < 0.017 (0.00-0.056) ng/mL Meds: Medications Generic Name Dose Route Start Last Admin Trade Name Freq PRN Reason Stop Dose Admin Sodium Chloride 100 mls @ 60 mls/hr 12/13/17 10:15 12/13/17 10:48 Normal Saline IV 60 mls/hr ASDIRECTED ROSE Administration Sodium Chloride 10 ml 12/13/17 08:59 12/13/17 09:10 Saline Flush FLUSH 10 ml ASDIRECTED PRN Administration Keep Vein Open Discontinued Medications Generic Name Dose Route Start Last Admin Trade Name Greer PRN Reason Stop Dose Admin Diazepam 2 mg 12/13/17 10:14 12/13/17 10:21 Valium PO 12/13/17 10:15 2 mg ONETIME ONE Administration Iopamidol 100 ml 12/13/17 10:04 12/13/17 10:47 Isovue-370 (76%) IVPUSH 12/13/17 10:05 100 ml ONETIME ONE Administration Sodium Chloride 10 ml 12/13/17 10:04 12/13/17 10:48 Saline Flush FLUSH 12/13/17 10:05 10 ml ONETIME ONE Administration - Re-Assessments/Exams Free Text/Narrative Re-Assessment/Exam: 12/13/17 11:43 I ordered an IV saline lock, EKG, CXR and all the labs were ordered by Dr Lorena tam. His EKG shows a NSR with no acute changes. His CBC looks good. His CMP looks good with a normal creatinine of 1.27. His troponin was negative. His D- dimer was elevated at 2.09. I odered a CT of his abdomen and pelvis. His CT shows less than optimal opacification of the pulmonary arteries. No evidence of pulmonary embolism within the main or segmental branches. He is still pain free and doing well. I have ordered a repeat troponin and EKG. 12/13/17 12:28 His repeat troponin is negative and his repeat EKG shows no acute changes. 12/13/17 12:36 I tried to call Dr Castro to let him know but he was out for lunch. I will try him later. Departure - Departure Time of Disposition: 12:40 Disposition: Home, Self-Care 01 Condition: Good Clinical Impression: Chest pain Qualifiers: Chest pain type: other chest pain Qualified Code(s): R07.89 - Other chest pain Referrals: Carl Esquivel MD [Primary Care Provider] - 1 Week Forms: ED Department Discharge Additional Instructions: Taek your medication as prescribed. Follow up with Dr Castro within 1 week. Please return if you are worse. - My Orders Last 24 Hours: My Active Orders 12/13/17 08:59 Cardiac Monitoring [RC] . DIRECTED EKG Documentation Completion [RC] STAT Oxygen Therapy [RC] PRN Peripheral IV Care [RC] . DIRECTED Sodium Chloride 0.9% [Saline Flush] 10 ml FLUSH ASDIRECTED PRN Peripheral IV Insertion Adult [OM.PC] Stat 12/13/17 10:15 Sodium Chloride 0.9% [Normal Saline] 100 ml IV ASDIRECTED 12/13/17 11:41 EKG 12 Lead [EK] Stat 12/13/17 11:42 EKG Documentation Completion [RC] ASDIRECTED - Assessment/Plan Last 24 Hours: My Active Orders 12/13/17 08:59 Cardiac Monitoring [RC] . DIRECTED EKG Documentation Completion [RC] STAT Oxygen Therapy [RC] PRN Peripheral IV Care [RC] . DIRECTED Sodium Chloride 0.9% [Saline Flush] 10 ml FLUSH ASDIRECTED PRN Peripheral IV Insertion Adult [OM.PC] Stat 12/13/17 10:15 Sodium Chloride 0.9% [Normal Saline] 100 ml IV ASDIRECTED 12/13/17 11:41 EKG 12 Lead [EK] Stat 12/13/17 11:42 EKG Documentation Completion [RC] ASDIRECTED
== END 2017-12-13 12:55 | disposition home or self-care (01) ==
LOC: JD.ED 08:49
DX: R07.89 Other chest pain (principal); I11.0 Hypertensive heart disease with heart failure; I50.9 Heart failure, unspecified; E78.00 Pure hypercholesterolemia, unspecified; E03.9 Hypothyroidism, unspecified; Z79.82 Long term (current) use of aspirin; Z79.899 Other long term (current) drug therapy; Z87.891 Personal history of nicotine dependence
CPT/HCPCS: 36415; 71045; 71275; 84484; 93005; 99285; A9270; J7030; J7050; Q9967; 93010

== ENCOUNTER 2020-01-26 19:47 | Emergency (ER) | payer MEDICARE, OTHER ==
[2020-01-26 19:58] VITALS: BP 190/85; PULSE 74
--- NOTE | 2020-01-26 20:36 | EDM.PDOC ---
ED HPI GENERAL MEDICAL PROBLEM - General Chief Complaint: Chest Pain Stated Complaint: CHEST PAIN Time Seen by Provider: 01/26/20 19:59 Source of Information: Reports: Patient, Family () History Limitations: Reports: No Limitations - History of Present Illness INITIAL COMMENTS - FREE TEXT/NARRATIVE: Mr. Rosado is a very pleasant 89-year-old man with a past medical history significant for CHF, with chronic dyspnea on exertion, orthopnea, and lower extremity edema, who now presents to the ED stating that he has had 1 week of a nonproductive cough, chest soreness when he coughs, and a sore throat. He developed a The patient's mentions that she has had similar symptoms, also for about 1 week. The patient states that his dyspnea on exertion is no worse than usual, and he does not suffer from dyspnea at rest. Similarly, his orthopnea is no worse, however, the patient has been sleeping in a recliner for the past 3 to 4 years. His lower extremity edema is no worse than usual. The patient states that he was seen at the [facility] this past Sunday, 2019. He states that a blood work, nasal swabs, and a chest x-ray were performed, all of which were negative, to the patient's knowledge. He believes that he was diagnosed with a viral infection, and was prescribed a medicine, whose name he does not recall, but which he is taking twice a day. He believes it is an antibiotic. His symptoms have not improved since beginning it. He has not taken any [id number] medications in addition to his prescription medications. Here in the ED, the patient's initial BP was found to be elevated at 190/85, otherwise, he is found to be hemodynamically stable, afebrile, with an oxygen saturation of 91% on room air. The patient's PCP is Dr. Carl Dong. His Urologist is Dr. Adarsh Whitehead. He received an influenza vaccine this season. - Related Data Allergies Allergy/AdvReac Type Severity Reaction Status Date / Time No Known Allergies Allergy Verified 06/01/19 11:58 Home Meds: Home Meds Finasteride [Proscar] 5 mg PO DAILY 06/15/15 [History] Latanoprost 2.5 ml OP DAILY 06/15/15 [History] Levothyroxine Sodium [Synthroid] 224 mcg PO DAILY 06/15/15 [History] Omeprazole 20 mg PO DAILY 06/15/15 [History] Tamsulosin [Flomax] 0.4 mg PO DAILY 06/15/15 [History] Simvastatin [Zocor] 20 mg PO BEDTIME 05/24/16 [History] Brimonidine [Alphagan 0.2% Ophth Soln] 1 drop EYEBOTH DAILY 06/21/17 [History] Losartan [Cozaar] 50 mg PO DAILY 06/01/19 [History] Dapagliflozin/Metformin HCl [Xigduo Xr 10 mg-500 mg Tablet] 0.5 tab PO DAILY 08/08 [History] Past Medical History HEENT History: Reports: Glaucoma, Hard of Hearing, Impaired Vision, Retinal Detachment (left) Other HEENT History: wears glasses and hearing aides and dentures Cardiovascular History: Reports: Heart Failure, High Cholesterol, Hypertension Gastrointestinal History: Reports: Colon Polyp, GERD (With Loera esophagus), Hiatal Hernia Genitourinary History: Reports: BPH Musculoskeletal History: Reports: Osteoarthritis Endocrine/Metabolic History: Reports: Diabetes, Type II, Hypothyroidism - Past Surgical History HEENT Surgical History: Reports: Adenoidectomy, Cataract Surgery (bilateral), Detached Retina (left), Oral Surgery (wisdom teeth extraction), Tonsillectomy GI Surgical History: Reports: Appendectomy, Colonoscopy (x 3 or 4), EGD (x 2) Musculoskeletal Surgical History: Reports: Arthroscopic Knee (left) Social & Family History - Family History Family Medical History: Noncontributory Oncologic: Reports: Prostate - Tobacco Use Smoking Status *Q: Former Smoker Years of Tobacco use: 21 Packs/Tins Daily: 1 Month/Year Tobacco Last Used: Quit around 1969 - Caffeine Use Caffeine Use: Reports: Coffee - Alcohol Use Alcohol Use History: Yes Alcohol Use Frequency: Socially - Recreational Drug Use Recreational Drug Use: No - Living Situation & Occupation Living situation: Reports: , with Spouse Occupation: Retired ED ROS GENERAL - Review of Systems Review Of Systems: Comprehensive ROS is negative, except as noted in HPI. ED EXAM, GENERAL - Physical Exam Exam: See Below Exam Limited By: No Limitations General Appearance: Alert, WD/WN, No Apparent Distress Eye Exam: Bilateral Eye: EOMI, Normal Inspection Ears: Normal External Exam, Hearing Loss (wearing hearing aids) Nose: Normal Inspection Throat/Mouth: Normal Inspection, Normal Lips, Normal Voice, No Airway Compromise Head: Atraumatic, Normocephalic Neck: Normal Inspection, Full Range of Motion Respiratory/Chest: No Respiratory Distress, Lungs Clear, Normal Breath Sounds, No Accessory Muscle Use, Chest Non-Tender, Wheezing (expiratory, throughout). No: Decreased Breath Sounds, Crackles, Rhonchi, Stridor, Prolonged Expiration Cardiovascular: Normal Peripheral Pulses, Regular Rate, Rhythm, No Gallop, No JVD, No Murmur, No Rub Peripheral Pulses: 4+: Radial (L), Radial (R) GI/Abdominal: Normal Bowel Sounds, Soft, Non-Tender, No Organomegaly, No Distention, No Abnormal Bruit, No Mass (Male) Exam: Deferred Rectal (Males) Exam: Deferred Back Exam: Normal Inspection, Full Range of Motion, NT Extremities: Normal Range of Motion, Normal Capillary Refill, Other (2-3+ pretibial edema bilaterally) Neurological: Alert, Oriented, Normal Cognition, No Motor/Sensory Deficits Psychiatric: Normal Affect Skin Exam: Warm, Dry, Intact, Normal Color, No Rash EKG INTERPRETATION EKG Date: 01/26/20 Time: 20:35 Rhythm: NSR Rate (Beats/Min): 68 [place]: Normal P-Wave: Present QRS: RBBB ST-T: Normal QT: Normal Comparison: Change From Previous EKG (RBBB new since 06/17/2018) Course - Vital Signs Last Recorded V/S: Last Vital Signs Temp 37.1 C 01/26/20 19:54 Pulse 74 01/26/20 19:54 Resp 18 01/26/20 19:54 BP 190/85 H 01/26/20 19:54 Pulse Ox - Orders/Labs/Meds Orders: Active Orders 24 hr Category Date Time Status EKG Documentation Completion [RC] STAT Care 01/26/20 20:29 Active Chest 2V [CR] Stat Exams 01/26/20 20:29 Taken COMPREHENSIVE METABOLIC PN,CMP [CHEM] Stat Lab 01/26/20 21:13 Received D-DIMER QUANTITATIVE [COAG] Stat Lab 01/26/20 21:13 Received INR,PT,PROTHROMBIN TIME [COAG] Stat Lab 01/26/20 21:13 Received PRO B-TYPE NATRIUR PEPT,BNPPRO [CHEM] Stat Lab 01/26/20 21:13 Received PTT,PARTIAL THROMBOPLSTIN TIME [COAG] Stat Lab 01/26/20 21:13 Received TROPONIN I [CHEM] Stat Lab 01/26/20 21:13 Received Labs: Laboratory Tests 01/26/20 Range/Units 21:13 WBC 4.17 L (4.23-9.07) K/mm3 RBC 4.76 (4.63-6.08) M/mm3 Hgb 14.6 (13.7-17.5) gm/dl Hct 44.2 (40.1-51.0) % MCV 92.9 H (79.0-92.2) fl MCH 30.7 (25.7-32.2) pg MCHC 33.0 (32.2-35.5) g/dl RDW Std Deviation 46.4 H (35.1-43.9) fL Plt Count 190 (163-337) K/mm3 MPV 10.2 (9.4-12.3) fl Neutrophils % (Manual) 57 (40-60) % Band Neutrophils % 0 (0-10) % Lymphocytes % (Manual) 27 (20-40) % Atypical Lymphs % 0 % Monocytes % (Manual) 14 H (2-10) % Eosinophils % (Manual) 2 (0.8-7.0) % Basophils % (Manual) 0 L (0.2-1.2) Platelet Estimate Adequate RBC Morph Comment Normal - Re-Assessments/Exams Free Text/Narrative Re-Assessment/Exam: 01/26/20 20:31 From a clinical standpoint, the patient is most likely suffering from viral bronchitis, however, I have ordered a work-up to make sure that there is nothing else going on, including blood work, a chest x-ray, and an ECG. 01/26/20 21:32 Two-view chest radiograph appears to be grossly normal. The cardiac silhouette is at the upper limits of normal. No pulmonary vascular congestion. No pleural effusions. No focal infiltrate. No pneumothorax. Formal read per the Radiologist pending. 01/26/20 22:06 The patient's CBC is remarkable for a WBC count mildly depressed at 4.17, with the remainder of his CBC being unremarkable. His CMP is remarkable for a creatinine elevated at 1.5, and a blood glucose mildly elevated at 147, with the remainder of his CMP being unremarkable. His troponin is undetectably low. His BNP is within normal limits at 41. His D-dimer is slightly elevated at 0.59. His coags are within normal limits. The patient's slightly elevated D-dimer is likely due to his renal insufficiency and age, and is not consistent with a PE. No further evaluation in this regard is indicated. 01/26/20 22:11 Test results discussed with the patient and his . As above, today's work- up is unremarkable. He is suffering from acute viral bronchitis. I explained that, unfortunately, there are no medicines that have been shown to be beneficial for the treatment of acute bronchitis, that it will have to run its course, which typically takes 1 to 3 weeks. I advised that whenever medicine he was prescribed at the [facility] this past Sunday - likely an antibiotic - that he throw the remaining tablets into the trash. The patient stated that he would. Departure - Departure Time of Disposition: 22:13 Disposition: Home, Self-Care 01 Condition: Good Clinical Impression: Acute viral bronchitis - Discharge Information *PRESCRIPTION DRUG MONITORING PROGRAM REVIEWED*: Not Applicable *COPY OF PRESCRIPTION DRUG MONITORING REPORT IN PATIENT TRISTON: Not Applicable Referrals: Carl Esquivel MD [Primary Care Provider] - Adarsh Whitehead MD [Physician] - Forms: ED Department Discharge Additional Instructions: You were seen in the emergency room for 1 week of a sore throat, headache, chest discomfort, and a cough. Work-up in the ER included blood work, chest x-ray, and an ECG. Your entire work-up was unremarkable. You do not have pneumonia. You do not have a blood clot in your lungs. You do not have a collapsed lung. You have not suffered a heart attack. You are not suffering from decompensated CHF. Based on your history, physical exam, and ER tests, you are most likely suffering from viral bronchitis = a viral infection of the tubes leading into your lungs. Unfortunately, there are no medicines that have been shown to be of any benefit for the treatment of viral bronchitis - it will have to run its course, which typically takes between 1 to 3 weeks. We recommend that you discontinue the medicine that you were prescribed from the [facility] this past 01/23/2020. Throw the remaining tablets into the trash. Do not flush them down the toilet or wash them down the drain. If any other problems, including worsening of your symptoms, or the development of fever, please do not hesitate to return to the ER for reevaluation. Sepsis Event Note - Evaluation Sepsis Screening Result: No Definite Risk - Focused Exam Vital Signs: Vital Signs Temp Pulse Resp BP 01/26/20 19:54 37.1 C 74 18 190/85 H Date Exam was Performed: 01/26/20 Time Exam was Performed: 21:43 - My Orders Last 24 Hours: My Active Orders 01/26/20 20:29 EKG Documentation Completion [RC] STAT Chest 2V [CR] Stat 01/26/20 21:13 COMPREHENSIVE METABOLIC PN,CMP [CHEM] Stat D-DIMER QUANTITATIVE [COAG] Stat INR,PT,PROTHROMBIN TIME [COAG] Stat PRO B-TYPE NATRIUR PEPT,BNPPRO [CHEM] Stat PTT,PARTIAL THROMBOPLSTIN TIME [COAG] Stat TROPONIN I [CHEM] Stat - Assessment/Plan Last 24 Hours: My Active Orders 01/26/20 20:29 EKG Documentation Completion [RC] STAT Chest 2V [CR] Stat 01/26/20 21:13 COMPREHENSIVE METABOLIC PN,CMP [CHEM] Stat D-DIMER QUANTITATIVE [COAG] Stat INR,PT,PROTHROMBIN TIME [COAG] Stat PRO B-TYPE NATRIUR PEPT,BNPPRO [CHEM] Stat PTT,PARTIAL THROMBOPLSTIN TIME [COAG] Stat TROPONIN I [CHEM] Stat
--- NOTE | 2020-01-27 06:47 | CR ---
Chest: Two views of the chest were obtained. Comparison: Prior chest x-ray of 06/16/19. Heart size is normal. Tortuous thoracic aorta is seen. Lungs are clear with no acute parenchymal change. Diaphragms are flattened on the lateral view suggesting emphysematous change. Bony structures appear intact. Previous right shoulder surgery is noted. Impression: 1. Probable emphysematous change. 2. Nothing acute is appreciated on two-view chest x-ray. Diagnostic code #2 This report was dictated in [place] Standard Time
== END 2020-01-26 22:26 | disposition home or self-care (01) ==
LOC: JD.ED 19:47
DX: J20.8 Acute bronchitis due to other specified organisms (principal); I11.0 Hypertensive heart disease with heart failure; I50.9 Heart failure, unspecified; E78.00 Pure hypercholesterolemia, unspecified; K21.9 Gastro-esophageal reflux disease without esophagitis; E11.9 Type 2 diabetes mellitus without complications; E03.9 Hypothyroidism, unspecified; Z79.84 Long term (current) use of oral hypoglycemic drugs; Z79.899 Other long term (current) drug therapy; Z87.891 Personal history of nicotine dependence
CPT/HCPCS: 36415; 71046; 71046-26; 80053; 83880; 84484; 85007; 85027; 85379; 85610; 85730; 93005; 93010; 99283; 99284-25

== ENCOUNTER 2020-01-28 12:03 | Emergency (ER) | payer MEDICARE, OTHER ==
[2020-01-28] MEDS ORDERED: Albuterol/Ipratropium 3.0-0.5 MG/3 ML Neb Soln NEB ONE (13:41)
[2020-01-28] MEDS ORDERED: Furosemide 40 MG/4 ML VIAL IVPUSH ONE (13:41)
--- NOTE | 2020-01-28 14:47 | EDM.PDOC ---
ED HPI GENERAL MEDICAL PROBLEM - General Chief Complaint: Respiratory Problem Stated Complaint: SOB Time Seen by Provider: 01/28/20 12:39 Source of Information: Reports: Patient, RN Notes Reviewed - History of Present Illness INITIAL COMMENTS - FREE TEXT/NARRATIVE: 89 yr old male returns to ED with continued cough, dyspnea, chest discomfort. He became around 5 to 7 days ago, seen in this ED 2 days ago, had appropriate eval, diagnosed with bronchitis. His sx continue about the same, does not feel he is getting better. No recent fever or chills. Cough is occasionally productive of clear and colored phlegm. [facility] but [facility] not have a nebul[facility]. Chest Pain Score (Numeric/FACES): 7 - Related Data Allergies Allergy/AdvReac Type Severity Reaction Status Date / Time No Known Allergies Allergy Verified 06/01/19 11:58 Home Meds: Home Meds Finasteride [Proscar] 5 mg PO DAILY 06/15/15 [History] Latanoprost 2.5 ml OP DAILY 06/15/15 [History] Levothyroxine Sodium [Synthroid] 224 mcg PO DAILY 06/15/15 [History] Omeprazole 20 mg PO DAILY 06/15/15 [History] Tamsulosin [Flomax] 0.4 mg PO DAILY 06/15/15 [History] Simvastatin [Zocor] 20 mg PO BEDTIME 05/24/16 [History] Brimonidine [Alphagan 0.2% Ophth Soln] 1 drop EYEBOTH DAILY 06/21/17 [History] Losartan [Cozaar] 50 mg PO DAILY 06/01/19 [History] Dapagliflozin/Metformin HCl [Xigduo Xr 10 mg-500 mg Tablet] 0.5 tab PO DAILY 08/08 [History] Doxycycline [Vibramycin] 100 mg PO BID #14 tab 01/28/20 [Rx] Past Medical History HEENT History: Reports: Glaucoma, Hard of Hearing, Impaired Vision, Retinal Detachment Other HEENT History: wears glasses and hearing aides and dentures Cardiovascular History: Reports: Heart Failure, High Cholesterol, Hypertension Other Cardiovascular History: edema, dysrhytmias Respiratory History: Reports: Other (See Below) Other Respiratory History: bronchitis, cough, URI Gastrointestinal History: Reports: Colon Polyp, GERD, Hiatal Hernia Other Gastrointestinal History: Loera's esophagus, epigstric pain, umbilico hernia Genitourinary History: Reports: BPH Other Genitourinary History: stage two renal disease [employer] History: Reports: None Musculoskeletal History: Reports: Osteoarthritis Other Musculoskeletal History: plantar fascitis, meniscus tear, left knee pain, left knee patellar malalignment, quadriceps tightening Neurological History: Reports: None Psychiatric History: Reports: None Endocrine/Metabolic History: Reports: Diabetes, Type II, Hypothyroidism Hematologic History: Reports: None, Other (See Below) Other Hematologic History: thrombocytopenia Immunologic History: Reports: None 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 Other Oncologic History: 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, has had 2-3 years, very slow growing Dermatologic History: Reports: None Other Dermatologic History: Atypical mole - Infectious Disease History Infectious Disease History: Reports: Measles, Mumps - Past Surgical History HEENT Surgical History: Reports: Adenoidectomy, Cataract Surgery, Detached Retina, Oral Surgery, Tonsillectomy Respiratory Surgical History: Reports: None GI Surgical History: Reports: Appendectomy, Colonoscopy, EGD Musculoskeletal Surgical History: Reports: Arthroscopic Knee Dermatological Surgical History: Reports: None Social & Family History - Family History Family Medical History: Noncontributory Oncologic: Reports: Prostate - Tobacco Use Smoking Status *Q: Never Smoker Second Hand Smoke Exposure: No - Caffeine Use Caffeine Use: Reports: None - Recreational Drug Use Recreational Drug Use: No - Living Situation & Occupation Living situation: Reports: , with Spouse Occupation: Retired ED ROS GENERAL - Review of Systems Review Of Systems: See Below Constitutional: Denies: Fever, Chills HEENT: Reports: Rhinitis (gone). Denies: Throat Pain Respiratory: Reports: Shortness of Breath, Cough, Sputum. Denies: Pleuritic Chest Pain Cardiovascular: Reports: Chest Pain GI/Abdominal: Denies: Abdominal Pain, Nausea, Vomiting Musculoskeletal: Denies: Shoulder Pain, Arm Pain, Back Pain Skin: Reports: No Symptoms Neurological: Reports: Dizziness. Denies: Headache, Numbness, Tingling, Trouble Speaking, Difficulty Walking ED EXAM, GENERAL - Physical Exam Exam: See Below General Appearance: Alert, No Apparent Distress Throat/Mouth: Normal Inspection, Normal Oropharynx Head: Atraumatic Neck: Supple Respiratory/Chest: No Respiratory Distress, Lungs Clear, Normal Breath Sounds. No: Rales, Rhonchi, Wheezing Cardiovascular: Regular Rate, Rhythm GI/Abdominal: Soft, Non-Tender Extremities: Normal Inspection, Normal Range of Motion Neurological: Alert, Oriented, No Motor/Sensory Deficits Skin Exam: Warm, Dry, Normal Color, No Rash Course - Vital Signs Last Recorded V/S: Last Vital Signs Temp 98.4 F 01/28/20 12:20 Pulse 83 01/28/20 15:09 Resp 20 01/28/20 15:09 BP 157/86 H 01/28/20 15:09 Pulse Ox 88 L 01/28/20 15:09 - Orders/Labs/Meds Meds: Medications Discontinued Medications Generic Name Dose Route Start Last Admin Trade Name Wisamq PRN Reason Stop Dose Admin Albuterol/Ipratropium 3 ml 01/28/20 13:41 01/28/20 14:02 Duoneb 3.0-0.5 Mg/3 Ml NEB 01/28/20 13:42 3 ml ONETIME ONE Administration Furosemide 40 mg 01/28/20 13:41 01/28/20 13:58 Lasix IVPUSH 01/28/20 13:42 40 mg NOW ONE Administration - Re-Assessments/Exams Free Text/Narrative Re-Assessment/Exam: 01/30/20 16:44 Labs reviewed from 2 days ago, CXR does not show an infiltrate, EKG does not show acute changes. We did give him a duoneb and that did seem to help his breathing, sensation of dyspnea. We checked with the [facility], the neb vials were requested by Dr Dong, ordered by the [facility], he was able to go to the [facility] to [facility] a nebulizer. Departure - Departure Time of Disposition: 14:43 Disposition: Home, Self-Care 01 Condition: Fair Clinical Impression: Bronchitis, Atypical chest pain - Discharge Information Prescriptions: Doxycycline [Vibramycin] 100 mg PO BID #14 tab Instructions: Acute Bronchitis, Adult, [id number] Referrals: Carl Esquivel MD [Primary Care Provider] - Forms: ED Department Discharge Additional Instructions: Doxycycline 100 mg twice daily, that prescription has been sent electronically to [facility]. Go to [facility] and be seen as a walk-in patient now and they will set up with a nebulizer to use with the medication sent to by mail from the [facility]. Neb treatments twice a day will help your breathing and should help your cough as well. Continue to follow-up with Dr. Dong or [facility]. Return to ED as needed if symptoms worsening in any way. Sepsis Event Note - Evaluation Sepsis Screening Result: No Definite Risk - Focused Exam Date Exam was Performed: 01/30/20 Time Exam was Performed: 16:44
--- NOTE | 2020-01-28 14:54 | CR ---
Chest: Two views of the chest were obtained. Comparison: Prior chest x-ray of 01/26/20. Heart size is normal. Tortuous thoracic aorta is seen. Lungs are clear with no acute parenchymal change. Diaphragms are flattened on the lateral view suggesting emphysematous change. Mild degenerative change is scattered within the spine. Prior right shoulder surgery. Impression: 1. Probable emphysematous change. 2. Nothing acute is seen on two-view chest x-ray. Diagnostic code #2 This report was dictated in MDT MTDD
[2020-01-28 16:29] VITALS: BP 157/86; PULSE 83
== END 2020-01-28 15:09 | disposition home or self-care (01) ==
LOC: JD.ED 12:03
DX: J40 Bronchitis, not specified as acute or chronic (principal); E78.00 Pure hypercholesterolemia, unspecified; I11.0 Hypertensive heart disease with heart failure; I50.9 Heart failure, unspecified; K21.9 Gastro-esophageal reflux disease without esophagitis; E11.9 Type 2 diabetes mellitus without complications; E03.9 Hypothyroidism, unspecified; Z79.899 Other long term (current) drug therapy
CPT/HCPCS: 71046; 93005; 94640; 96374; 99285; J1940; 93010; 99283; J7620-GY

== ENCOUNTER 2020-12-12 10:25 | Inpatient (IN) | payer MEDICARE, OTHER ==
[2020-12-12] MEDS ORDERED: Sodium Chloride 0.9% 10 ML Syringe FLUSH PRN (10:58)
--- NOTE | 2020-12-12 11:38 | CR ---
Chest: Portable view of the chest was obtained. Comparison: Prior chest x-ray of 01/28/20. Very slight scarring is noted within the right mid to lower lung. No acute parenchymal change is seen. Heart size is within normal limits. Tortuous thoracic aorta is noted. Previous right shoulder surgery is seen. Impression: 1. Findings as noted above. 2. Nothing acute is appreciated on portable chest x-ray. Diagnostic code #2
[2020-12-12] MEDS ORDERED: Sodium Chloride 0.9% 500 ML IV ONE (12:00)
[2020-12-12] MEDS ORDERED: LORazepam 2 MG/ML SDV IVPUSH ONE (12:37)
[2020-12-12] MEDS ORDERED: Iopamidol 755 Mg/ML 100 ML Bottle IVPUSH ONE (13:40)
[2020-12-12] MEDS ORDERED: Sodium Chloride 0.9% 10 ML Syringe FLUSH ONE (13:40)
[2020-12-12] MEDS ORDERED: Sodium Chloride 0.9% 100 ML IV SCH (13:45)
--- NOTE | 2020-12-12 14:01 | CT ---
CT chest Technique: Multiple axial sections were obtained from above the lung apices inferiorly through the lung bases. Intravenous contrast was utilized. Study was performed as a pulmonary angiogram protocol. Comparison: Prior CT angiogram of chest dated 04/12/18. Findings: Enlarged lymph node is noted within the anterior mediastinum. This finding measures approximately 1.9 cm and has significantly increased from previous exam. No other areas of adenopathy are appreciated within the mediastinum. Coronary artery calcification is seen. No pericardial thickening is identified. Images of the abdomen show several small low-density lesions within the liver. These are believed to be stable from prior exam presumably due to cysts. Cysts are noted within the upper left kidney. Small hiatal hernia is noted. Mild chronic change is seen within both lung bases. There is an area of parenchymal scarring within the right middle lobe. No definite acute parenchymal change is appreciated. Mild emphysematous changes are present. No findings of pulmonary embolism are seen. Bone window settings were reviewed which show no acute osseous finding. Impression: 1. Slightly enlarged lymph node within the anterior mediastinum. This is nonspecific regarding etiology. No other lymphadenopathy is seen. 2. Findings within the abdomen which are stable. 3. No findings of pulmonary embolism are seen. 4. Mild chronic change within the lung bases are noted. Diagnostic code #3
--- NOTE | 2020-12-12 14:05 | CT ---
CT neck Technique: Multiple axial sections through the neck were obtained. Intravenous contrast was utilized. Reconstructed coronal and axial images were obtained. Findings: Right submandibular salivary gland is slightly enlarged as compared to left side. Several calcifications are seen within the left submandibular salivary gland. Parotid salivary glands appear normal. Visualized paranasal sinuses show nothing acute. Visualized mastoid sinuses show nothing acute. There is no other neck mass being seen. Prevertebral soft tissues are normal. Bone window setting show scattered degenerative change within the cervical spine. Impression: 1. Mildly enlarged right submandibular salivary gland as compared to the opposite side. Left side of the submandibular gland shows evidence of calcifications which could relate to calcifications within the salivary duct or other dystrophic calcifications. 3. Other findings as noted above which are believed to be incidental. Diagnostic code #3
[2020-12-12] MEDS ORDERED: cefTRIAXone 2 GM in Sodium Chloride 0.9% 100 ML IV ONE (14:34)
--- NOTE | 2020-12-12 14:51 | EDM.PDOC ---
ED HPI GENERAL MEDICAL PROBLEM - General Chief Complaint: Respiratory Problem Stated Complaint: SWOLLEN GLAND AND SOB Time Seen by Provider: 12/12/20 10:43 Source of Information: Reports: Patient, Family History Limitations: Reports: No Limitations - History of Present Illness INITIAL COMMENTS - FREE TEXT/NARRATIVE: The patient presents for shortness of breath and left neck swelling. The patient saw his doctor Dr Torres and he had labs done. He has a slight cough but no fever or chills. When I went in to talk with him he was even more short of breath and anxious. His oxygen level went down to 88%. I put him on some oxygen and that helped. He has no chest pain. He has swelling to the left neck and under his jaw. This has been going on for about 1 week. He has a follow up with Dr Torres next week. He was to short of breath to wait. He has no abdominal pain, nausea or vomiting. He has no swelling in his leg or pain in his legs. Onset: Gradual Duration: Week(s): Location: Reports: Neck (and jaw) Quality: Reports: Sharp Severity: Mild Improves with: Reports: None Worsens with: Reports: None Associated Symptoms: Reports: Cough, Shortness of Breath. Denies: Chest Pain, Fever/Chills, Headaches, Nausea/Vomiting - Related Data Allergies Allergy/AdvReac Type Severity Reaction Status Date / Time No Known Allergies Allergy Verified 12/12/20 10:36 Home Meds: Home Meds Finasteride [Proscar] 5 mg PO DAILY 06/15/15 [History] Latanoprost 2.5 ml OP DAILY 06/15/15 [History] Levothyroxine Sodium [Synthroid] 224 mcg PO DAILY 06/15/15 [History] Omeprazole 20 mg PO DAILY 06/15/15 [History] Tamsulosin [Flomax] 0.4 mg PO DAILY 06/15/15 [History] Simvastatin [Zocor] 20 mg PO BEDTIME 05/24/16 [History] Brimonidine [Alphagan 0.2% Ophth Soln] 1 drop EYEBOTH DAILY 06/21/17 [History] Losartan [Cozaar] 50 mg PO DAILY 06/01/19 [History] Dapagliflozin/Metformin HCl [Xigduo Xr 10 mg-500 mg Tablet] 0.5 tab PO DAILY 01/26/20 [History] Doxycycline [Vibramycin] 100 mg PO BID #14 tab 01/28/20 [Rx] Past Medical History HEENT History: Reports: Glaucoma, Hard of Hearing, Impaired Vision, Retinal Detachment Other HEENT History: wears glasses and hearing aides and dentures Cardiovascular History: Reports: Heart Failure, High Cholesterol, Hypertension Other Cardiovascular History: edema, dysrhytmias Respiratory History: Reports: Other (See Below) Other Respiratory History: bronchitis, cough, URI Gastrointestinal History: Reports: Colon Polyp, GERD, Hiatal Hernia Other Gastrointestinal History: Loera's esophagus, epigstric pain, umbilico hernia Genitourinary History: Reports: BPH Other Genitourinary History: stage two renal disease CULTURIST History: Reports: None Musculoskeletal History: Reports: Osteoarthritis Other Musculoskeletal History: plantar fascitis, meniscus tear, left knee pain, left knee patellar malalignment, quadriceps tightening Neurological History: Reports: None Psychiatric History: Reports: None Endocrine/Metabolic History: Reports: Diabetes, Type II, Hypothyroidism Hematologic History: Reports: None, Other (See Below) Other Hematologic History: thrombocytopenia Immunologic History: Reports: None 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 Other Oncologic History: 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, has had 2-3 years, very slow growing Dermatologic History: Reports: None Other Dermatologic History: Atypical mole - Infectious Disease History Infectious Disease History: Reports: Measles, Mumps - Past Surgical History Head Surgeries/Procedures: Reports: None HEENT Surgical History: Reports: Adenoidectomy, Cataract Surgery, Detached Retina, Oral Surgery, Tonsillectomy Respiratory Surgical History: Reports: None GI Surgical History: Reports: Appendectomy, Colonoscopy, EGD Male Surgical History: Reports: None Endocrine Surgical History: Reports: None Neurological Surgical History: Reports: None Musculoskeletal Surgical History: Reports: Arthroscopic Knee Dermatological Surgical History: Reports: None Social & Family History - Family History Family Medical History: No Pertinent Family History Oncologic: Reports: Prostate - Tobacco Use Tobacco Use Status *Q: Never Tobacco User - Caffeine Use Caffeine Use: Reports: None - Living Situation & Occupation Living situation: Reports: , with Spouse Occupation: Retired ED ROS GENERAL - Review of Systems Review Of Systems: See Below Constitutional: Reports: No Symptoms HEENT: Reports: No Symptoms Respiratory: Reports: Shortness of Breath, Cough Cardiovascular: Reports: No Symptoms Endocrine: Reports: No Symptoms GI/Abdominal: Reports: No Symptoms : Reports: No Symptoms Musculoskeletal: Reports: Neck Pain (left neck and jaw) ED EXAM, GENERAL - Physical Exam Exam: See Below Exam Limited By: No Limitations General Appearance: Alert, Mild Distress Ears: Normal External Exam, Normal Canal, Normal TMs Nose: Normal Inspection Throat/Mouth: Normal Inspection Head: Atraumatic, Normocephalic Neck: Lymphadenopathy (L) (and swelling under the left jaw) Respiratory/Chest: No Respiratory Distress, Lungs Clear, Normal Breath Sounds Cardiovascular: Regular Rate, Rhythm, No Edema, No Murmur GI/Abdominal: Soft, Non-Tender, No Organomegaly, No Mass Back Exam: Normal Inspection Extremities: Normal Inspection #1 Interpretation EKG Date: 12/12/20 Time: 11:04 Rhythm: NSR Rate (Beats/Min): 99 Fingal: LAD-Left Fingal Deviation P-Wave: Present QRS: RBBB ST-T: Normal QT: Normal EKG Interpretation Comments: PVCs Course - Vital Signs Last Recorded V/S: Last Vital Signs Temp 97.8 F 12/12/20 10:33 Pulse 76 12/12/20 13:59 Resp 16 12/12/20 13:59 BP 132/61 12/12/20 13:59 Pulse Ox 96 12/12/20 13:59 - Orders/Labs/Meds Orders: Active Orders 24 hr Category Date Time Status Cardiac Monitoring [RC] . DIRECTED Care 12/12/20 10:58 Active EKG Documentation Completion [RC] STAT Care 12/12/20 10:59 Active Oxygen Therapy [RC] PRN Care 12/12/20 10:58 Active Peripheral IV Care [RC] . DIRECTED Care 12/12/20 10:59 Active CULTURE BLOOD [BC] Stat Lab 12/12/20 14:50 Received CULTURE BLOOD [BC] Stat Lab 12/12/20 14:50 Received LACTIC ACID [CHEM] Stat Lab 12/12/20 14:50 Received UA W/MICROSCOPIC [URIN] Stat Lab 12/12/20 15:03 Results Sodium Chloride 0.9% [Normal Saline] 100 ml Med 12/12/20 13:45 Active IV ASDIRECTED Sodium Chloride 0.9% [Saline Flush] Med 12/12/20 10:58 Active 10 ml FLUSH ASDIRECTED PRN Blood Culture x2 Reflex Set [OM.PC] Stat Oth 12/12/20 14:36 Ordered Peripheral IV Insertion Adult [OM.PC] Stat Ot 12/12/20 10:58 Ordered Medication Orders Sodium Chloride (Normal Saline) 100 mls @ 60 mls/hr IV ASDIRECTED ROSE Last Admin: 12/12/20 13:41 Dose: 60 mls/hr Documented by: JOHN Sodium Chloride (Saline Flush) 10 ml FLUSH ASDIRECTED PRN PRN Reason: Keep Vein Open Last Admin: 12/12/20 11:07 Dose: 10 ml Documented by: WENDI Labs: Laboratory Tests 12/12/20 12/12/20 12/12/20 Range/Units 11:05 11:05 11:05 WBC 9.69 H (4.23-9.07) K/mm3 RBC 4.91 (4.63-6.08) M/mm3 Hgb 15.0 (13.7-17.5) gm/dl Hct 45.4 (40.1-51.0) % MCV 92.5 H (79.0-92.2) fl MCH 30.5 (25.7-32.2) pg MCHC 33.0 (32.2-35.5) g/dl RDW Std Deviation 45.6 H (35.1-43.9) fL Plt Count 168 (163-337) K/mm3 MPV 10.6 (9.4-12.3) fl Neut % (Auto) 79.1 H (34.0-67.9) % Lymph % (Auto) 10.7 L (21.8-53.1) % [place] % (Auto) 9.3 (5.3-12.2) % Eos % (Auto) 0.6 L (0.8-7.0) Baso % (Auto) 0.1 (0.1-1.2) % Neut # (Auto) 7.66 H (1.78-5.38) K/mm3 Lymph # (Auto) 1.04 L (1.32-3.57) K/mm3 [place] # (Auto) 0.90 H (0.30-0.82) K/mm3 Eos # (Auto) 0.06 (0.04-0.54) K/mm3 Baso # (Auto) 0.01 (0.01-0.08) K/mm3 PT 10.9 (9.7-12.0) SECONDS INR 1.02 APTT 28.4 (21.7-31.4) SECONDS D-Dimer, Quantitative 0.77 H (0.19-0.50) mg/L Puncture Site ABG pH (7.35-7.45) ABG pCO2 (35.0-45.0) mmHg ABG pO2 (80.0-100.0) mmHg ABG HCO3 (22.0-26.0) meq/L ABG O2 Saturation (96.0-97.0) % ABG Base Excess (-2-2.0) Raj Test A-a Gradient mmHg O2 Delivery Device Oxygen Flow Rate FiO2 (21.00-100.00) % Sodium 142 (136-145) mEq/L Potassium 4.0 (3.5-5.1) mEq/L Chloride 104 (98-107) mEq/L Carbon Dioxide 29 (21-32) mEq/L Anion Gap 13.0 (5-15) BUN 33 H (7-18) mg/dL Creatinine 1.6 H (0.7-1.3) mg/dL Est Cr Clr Drug Dosing TNP Estimated GFR (MDRD) 41 (>60) mL/min BUN/Creatinine Ratio 20.6 H (14-18) Glucose 145 H (83-115) mg/dL Lactic Acid (0.4-2.0) mmol/L Calcium 9.9 (8.5-10.1) mg/dL Magnesium 1.8 (1.8-2.4) mg/dl Total Bilirubin 1.0 (0.2-1.0) mg/dL AST 15 (15-37) U/L ALT 23 (16-63) U/L Alkaline Phosphatase 103 (46-116) U/L Troponin I < 0.017 (0.00-0.056) ng/mL C-Reactive Protein 5.5 H* (<1.0) mg/dL NT-Pro-B Natriuret Pep (0-450) pg/mL Total Protein 7.1 (6.4-8.2) g/dl Albumin 3.8 (3.4-5.0) g/dl Globulin 3.3 gm/dL Albumin/Globulin Ratio 1.2 (1-2) Urine Color (Yellow) Urine Appearance (Clear) Urine pH (5.0-8.0) Ur Specific [place] (1.005-1.030) Urine Protein (Negative) Urine Glucose (UA) (Negative) Urine Ketones (Negative) Urine Occult Blood (Negative) Urine Nitrite (Negative) Urine Bilirubin (Negative) Urine Urobilinogen (0.2-1.0) Ur Leukocyte Esterase (Negative) SARS-CoV-2 RNA (JUDI) (NEGATIVE) 12/12/20 12/12/20 12/12/20 Range/Units 11:05 11:05 11:11 WBC (4.23-9.07) K/mm3 RBC (4.63-6.08) M/mm3 Hgb (13.7-17.5) gm/dl Hct (40.1-51.0) % MCV (79.0-92.2) fl MCH (25.7-32.2) pg MCHC (32.2-35.5) g/dl RDW Std Deviation (35.1-43.9) fL Plt Count (163-337) K/mm3 MPV (9.4-12.3) fl Neut % (Auto) (34.0-67.9) % Lymph % (Auto) (21.8-53.1) % [place] % (Auto) (5.3-12.2) % Eos % (Auto) (0.8-7.0) Baso % (Auto) (0.1-1.2) % Neut # (Auto) (1.78-5.38) K/mm3 Lymph # (Auto) (1.32-3.57) K/mm3 [place] # (Auto) (0.30-0.82) K/mm3 Eos # (Auto) (0.04-0.54) K/mm3 Baso # (Auto) (0.01-0.08) K/mm3 PT (9.7-12.0) SECONDS INR APTT (21.7-31.4) SECONDS D-Dimer, Quantitative (0.19-0.50) mg/L Puncture Site ABG pH (7.35-7.45) ABG pCO2 (35.0-45.0) mmHg ABG pO2 (80.0-100.0) mmHg ABG HCO3 (22.0-26.0) meq/L ABG O2 Saturation (96.0-97.0) % ABG Base Excess (-2-2.0) Raj Test A-a Gradient mmHg O2 Delivery Device Oxygen Flow Rate FiO2 (21.00-100.00) % Sodium (136-145) mEq/L Potassium (3.5-5.1) mEq/L Chloride (98-107) mEq/L Carbon Dioxide (21-32) mEq/L Anion Gap (5-15) BUN (7-18) mg/dL Creatinine (0.7-1.3) mg/dL Est Cr Clr Drug Dosing Estimated GFR (MDRD) (>60) mL/min BUN/Creatinine Ratio (14-18) Glucose (83-115) mg/dL Lactic Acid 3.2 H* (0.4-2.0) mmol/L Calcium (8.5-10.1) mg/dL Magnesium (1.8-2.4) mg/dl Total Bilirubin (0.2-1.0) mg/dL AST (15-37) U/L ALT (16-63) U/L Alkaline Phosphatase (46-116) U/L Troponin I (0.00-0.056) ng/mL C-Reactive Protein (<1.0) mg/dL NT-Pro-B Natriuret Pep 63 (0-450) pg/mL Total Protein (6.4-8.2) g/dl Albumin (3.4-5.0) g/dl Globulin gm/dL Albumin/Globulin Ratio (1-2) Urine Color (Yellow) Urine Appearance (Clear) Urine pH (5.0-8.0) Ur Specific [place] (1.005-1.030) Urine Protein (Negative) Urine Glucose (UA) (Negative) Urine Ketones (Negative) Urine Occult Blood (Negative) Urine Nitrite (Negative) Urine Bilirubin (Negative) Urine Urobilinogen (0.2-1.0) Ur Leukocyte Esterase (Negative) SARS-CoV-2 RNA (JUDI) Negative (NEGATIVE) 12/12/20 12/12/20 Range/Units 15:00 15:03 WBC (4.23-9.07) K/mm3 RBC (4.63-6.08) M/mm3 Hgb (13.7-17.5) gm/dl Hct (40.1-51.0) % MCV (79.0-92.2) fl MCH (25.7-32.2) pg MCHC (32.2-35.5) g/dl RDW Std Deviation (35.1-43.9) fL Plt Count (163-337) K/mm3 MPV (9.4-12.3) fl Neut % (Auto) (34.0-67.9) % Lymph % (Auto) (21.8-53.1) % [place] % (Auto) (5.3-12.2) % Eos % (Auto) (0.8-7.0) Baso % (Auto) (0.1-1.2) % Neut # (Auto) (1.78-5.38) K/mm3 Lymph # (Auto) (1.32-3.57) K/mm3 [place] # (Auto) (0.30-0.82) K/mm3 Eos # (Auto) (0.04-0.54) K/mm3 Baso # (Auto) (0.01-0.08) K/mm3 PT (9.7-12.0) SECONDS INR APTT (21.7-31.4) SECONDS D-Dimer, Quantitative (0.19-0.50) mg/L Puncture Site Rt radial ABG pH 7.38 (7.35-7.45) ABG pCO2 43.8 (35.0-45.0) mmHg ABG pO2 64.0 L (80.0-100.0) mmHg ABG HCO3 25.2 (22.0-26.0) meq/L ABG O2 Saturation 89.8 L (96.0-97.0) % ABG Base Excess 0.4 (-2-2.0) Raj Test Positive A-a Gradient 31 mmHg O2 Delivery Device Room air Oxygen Flow Rate 0.0 FiO2 21.00 (21.00-100.00) % Sodium (136-145) mEq/L Potassium (3.5-5.1) mEq/L Chloride (98-107) mEq/L Carbon Dioxide (21-32) mEq/L Anion Gap (5-15) BUN (7-18) mg/dL Creatinine (0.7-1.3) mg/dL Est Cr Clr Drug Dosing Estimated GFR (MDRD) (>60) mL/min BUN/Creatinine Ratio (14-18) Glucose (83-115) mg/dL Lactic Acid (0.4-2.0) mmol/L Calcium (8.5-10.1) mg/dL Magnesium (1.8-2.4) mg/dl Total Bilirubin (0.2-1.0) mg/dL AST (15-37) U/L ALT (16-63) U/L Alkaline Phosphatase (46-116) U/L Troponin I (0.00-0.056) ng/mL C-Reactive Protein (<1.0) mg/dL NT-Pro-B Natriuret Pep (0-450) pg/mL Total Protein (6.4-8.2) g/dl Albumin (3.4-5.0) g/dl Globulin gm/dL Albumin/Globulin Ratio (1-2) Urine Color Light yellow (Yellow) Urine Appearance Slt cloudy H (Clear) Urine pH 7.0 (5.0-8.0) Ur Specific [place] 1.015 (1.005-1.030) Urine Protein Negative (Negative) Urine Glucose (UA) Negative (Negative) Urine Ketones Negative (Negative) Urine Occult Blood Trace-intact H (Negative) Urine Nitrite Negative (Negative) Urine Bilirubin Negative (Negative) Urine Urobilinogen 1.0 (0.2-1.0) Ur Leukocyte Esterase Negative (Negative) SARS-CoV-2 RNA (JUDI) (NEGATIVE) Meds: Medications Generic Name Dose Route Start Last Admin Trade Name Freq PRN Reason Stop Dose Admin Sodium Chloride 100 mls @ 60 mls/hr 12/12/20 13:45 12/12/20 13:41 Normal Saline IV 60 mls/hr ASDIRECTED ROSE Administration Sodium Chloride 10 ml 12/12/20 10:58 12/12/20 11:07 Saline Flush FLUSH 10 ml ASDIRECTED PRN Administration Keep Vein Open Discontinued Medications Generic Name Dose Route Start Last Admin Trade Name Freq PRN Reason Stop Dose Admin Sodium Chloride 500 mls @ 1,000 mls/hr 12/12/20 12:00 12/12/20 12:10 Normal Saline IV 12/12/20 12:29 1,000 mls/hr .BOLUS ONE Administration Ceftriaxone Sodium 2 gm/ 100 mls @ 200 mls/hr 12/12/20 14:34 12/12/20 15:10 Sodium Chloride IV 12/12/20 15:03 200 mls/hr ONETIME ONE Administration Iopamidol 100 ml 12/12/20 13:40 12/12/20 13:40 Isovue-370 (76%) IVPUSH 12/12/20 13:41 100 ml ONETIME ONE Administration Lorazepam 0.5 mg 12/12/20 12:37 12/12/20 12:44 Ativan IVPUSH 12/12/20 12:38 0.5 mg ONETIME ONE Administration Sodium Chloride 10 ml 12/12/20 13:40 12/12/20 13:40 Saline Flush FLUSH 12/12/20 13:41 10 ml ONETIME ONE Administration - Re-Assessments/Exams Free Text/Narrative Re-Assessment/Exam: 12/12/20 15:21 I ordered oxygen, IV saline lock, EKG, CXR, labs, lactic acid, and blood cultures. His EKG shows a NSR, RBBB and PVCs but nothing acute. His CXR shows nothing acute. His WBC was elevated at 9.69. His D-dimer was elevated at 0.77. I have ordered a CT of his chest and neck. His creatinine is elevated at 1.6. That has increased from 1.3. His lactic acid has increased to 3.2 from 2.2 two days ago. His troponin is negative. His CRP is elevated at 5.5 and that is also up from 1.1 a couple days ago. The CT of his chest shows slightly enlarged lymph node within the anterior mediastinum. This is nonspecific regarding etiology. No other lymphadenopathy is seen. Findings within the abdomen which are stable. No findings of pulmonary embolism are seen. Mild chronic change within the lung bases are noted. The CT of her neck shows mildly enlarged right submandibular salivary gland as compared to the opposite side. Left side of the submandibular gland shows evidence of calcifications which could relate to calcifications within the salivary duct or other dystrophic calcifications. Other findings as noted above which are believed to be incidental. His COVID 19 is negative. He could have sialilitiasis with sialadenitis. I have ordered blood cultures and rocephin 2 grams IV. His UA shows no UTI. His pO2 was low at 64. His O2 saturation was 89.8%. I am not sure why he is hypo xic. There was no PE or pneumonia on CT. I feel he needs to be admitted with IV antibiotics until we know the blood cultures. I called Dr Miles and he agreed to the admission. Departure - Departure Time of Disposition: 15:40 Disposition: Admitted As Inpatient 68 Clinical Impression: Hypoxia, Elevated lactic acid level, Renal insufficiency, Sialoliths, Sialadenitis - Discharge Information Referrals: Carl Torres MD [Primary Care Provider] - Forms: ED Department Discharge Sepsis Event Note (ED) - Evaluation Sepsis Screening Result: No Definite Risk - Focused Exam Vital Signs: Vital Signs Temp Pulse Resp BP Pulse Ox 12/12/20 13:59 76 16 132/61 96 12/12/20 11:13 94 20 166/78 H 93 L 12/12/20 10:33 97.8 F 85 20 168/76 H 88 L - My Orders Last 24 Hours: My Active Orders 12/12/20 10:58 Cardiac Monitoring [RC] . DIRECTED Oxygen Therapy [RC] PRN Sodium Chloride 0.9% [Saline Flush] 10 ml FLUSH ASDIRECTED PRN Peripheral IV Insertion Adult [OM.PC] Stat 12/12/20 10:59 EKG Documentation Completion [RC] STAT Peripheral IV Care [RC] . DIRECTED 12/12/20 13:45 Sodium Chloride 0.9% [Normal Saline] 100 ml IV ASDIRECTED 12/12/20 14:36 Blood Culture x2 Reflex Set [OM.PC] Stat 12/12/20 14:50 CULTURE BLOOD [BC] Stat CULTURE BLOOD [BC] Stat LACTIC ACID [CHEM] Stat 12/12/20 15:03 UA W/MICROSCOPIC [URIN] Stat - Assessment/Plan Last 24 Hours: My Active Orders 12/12/20 10:58 Cardiac Monitoring [RC] . DIRECTED Oxygen Therapy [RC] PRN Sodium Chloride 0.9% [Saline Flush] 10 ml FLUSH ASDIRECTED PRN Peripheral IV Insertion Adult [OM.PC] Stat 12/12/20 10:59 EKG Documentation Completion [RC] STAT Peripheral IV Care [RC] . DIRECTED 12/12/20 13:45 Sodium Chloride 0.9% [Normal Saline] 100 ml IV ASDIRECTED 12/12/20 14:36 Blood Culture x2 Reflex Set [OM.PC] Stat 12/12/20 14:50 CULTURE BLOOD [BC] Stat CULTURE BLOOD [BC] Stat LACTIC ACID [CHEM] Stat 12/12/20 15:03 UA W/MICROSCOPIC [URIN] Stat
[2020-12-12] MEDS ORDERED: Acetaminophen 325 MG Tab PO PRN (17:41)
[2020-12-12] MEDS ORDERED: Piperacillin/Tazobactam 4.5 GM in Sodium Chloride 0.9% 100 ML IV ONE (17:48)
--- NOTE | 2020-12-12 17:49 | PCM.HP.2 ---
H&P History of Present Illness - General Date of Service: 12/12/20 Admit Problem/Dx: Admission Diagnosis/Problem Admission Diagnosis/Problem Hypoxia - History of Present Illness Initial Comments - Free Text/Narative: 89-year-old male with history of hypertension, hyperlipidemia, hypothyroidism, and BPH presents to the emergency department with left neck gland swelling. Patient states has been there for a few days and it has gotten worse. He denies any difficulty swallowing, fever, chills, or redness. He denies any shortness of breath. Patient was seen a couple of days ago by Dr. Dong and he has a follow-up in a week. CT scan of the neck done in the emergency department showed showed mildly enlarged right submandibular salivary gland as compared to the opposite side. Left side of the submandibular gland shows evidence of calcifications which could relate to calcifications within the salivary duct or other dystrophic calcifications. CT scan of the chest was also performed which showed slightly enlarged lymph node within the anterior mediastinum. This is nonspecific regarding etiology. It measures 1.9 cm and has significantly increased from previous exam. When patient presented to the emergency department his pulse ox was 88% and he was placed on 2 L. When he arrived on the floor his oxygen saturations were back to 94%. Initial pertinent labs WBC 9.69 with 80% absolute neutrophils, no bands. D- dimer 0.77. Creatinine elevated at 1.6 with estimated GFR of 41. CRP 5.5. Lactic acid initially was 3.2 but after bolus in the emergency department it decreased to 1.2. Pertinent negatives, proBNP 63, troponin less than 0.017. SARS-CoV-2 was negative. - Related Data Allergies/Adverse Reactions: Allergies Allergy/AdvReac Type Severity Reaction Status Date / Time No Known Allergies Allergy Verified 12/12/20 16:56 Home Medications: Home Meds Finasteride [Proscar] 5 mg PO BEDTIME 06/15/15 [History] Latanoprost 2.5 ml OP BEDTIME 06/15/15 [History] Levothyroxine Sodium [Synthroid] 224 mcg PO DAILY 06/15/15 [History] Omeprazole 20 mg PO DAILY 06/15/15 [History] Tamsulosin [Flomax] 0.4 mg PO BEDTIME 06/15/15 [History] Simvastatin [Zocor] 20 mg PO BEDTIME 05/24/16 [History] Brimonidine [Alphagan 0.2% Ophth Soln] 1 drop EYEBOTH DAILY 06/21/17 [History] Losartan [Cozaar] 50 mg PO DAILY 06/01/19 [History] Doxycycline [Vibramycin] 100 mg PO BID #14 tab 01/28/20 [Rx] Bumetanide 1 mg PO DAILY 12/12/20 [History] metFORMIN [Glucophage XR] 500 mg PO BID 12/12/20 [History] Past Medical History HEENT History: Reports: Cataract, Glaucoma, Hard of Hearing, Impaired Vision, Retinal Detachment Other HEENT History: wears glasses and hearing aides and lower partial plate Cardiovascular History: Reports: Heart Failure, High Cholesterol, Hypertension Other Cardiovascular History: edema Respiratory History: Reports: Other (See Below) Other Respiratory History: bronchitis Gastrointestinal History: Reports: Colon Polyp, GERD, Hiatal Hernia Other Gastrointestinal History: Loera's esophagus Genitourinary History: Reports: BPH Other Genitourinary History: stage two renal disease [employer] History: Reports: None Musculoskeletal History: Reports: Osteoarthritis Other Musculoskeletal History: plantar fascitis, meniscus tear, left knee pain, left knee patellar malalignment, quadriceps tightening Neurological History: Reports: None Psychiatric History: Reports: None Endocrine/Metabolic History: Reports: Diabetes, Type II, Hypothyroidism Hematologic History: Reports: None, Other (See Below) Other Hematologic History: thrombocytopenia Immunologic History: Reports: None 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 not cancerous at this point. Dermatologic History: Reports: None Other Dermatologic History: Atypical mole - Infectious Disease History Infectious Disease History: Reports: Chicken Pox, Measles, Mumps - Past Surgical History Head Surgeries/Procedures: Reports: None HEENT Surgical History: Reports: Adenoidectomy, Cataract Surgery, Detached Retina, Oral Surgery, Tonsillectomy Respiratory Surgical History: Reports: None GI Surgical History: Reports: Appendectomy, Colonoscopy, EGD Male Surgical History: Reports: None Endocrine Surgical History: Reports: None Neurological Surgical History: Reports: None Musculoskeletal Surgical History: Reports: Arthroscopic Knee, Knee Replacement Dermatological Surgical History: Reports: None Social & Family History - Family History Family Medical History: No Pertinent Family History Oncologic: Reports: Prostate - Tobacco Use Tobacco Use Status *Q: Former Tobacco User Used Tobacco, but Quit: Yes Month/Year Tobacco Last Used: 1979 - Caffeine Use Caffeine Use: Reports: Soda Caffeine Use Comment: drinks pop once in a while - Recreational Drug Use Recreational Drug Use: No - Living Situation & Occupation Living situation: Reports: , with Spouse Occupation: Retired H&P Review of Systems - Review of Systems: Review Of Systems: Comprehensive ROS is negative, except as noted in HPI. Exam - Exam Exam: See Below - Vital Signs Vital Signs: Last Vital Signs Temp 97.8 F 12/12/20 10:33 Pulse 73 12/12/20 15:27 Resp 16 12/12/20 15:27 BP 159/76 H 12/12/20 15:27 Pulse Ox 91 L 12/12/20 15:27 Weight: 245 lb 1.6 oz - Exam Quality Assessment: No: Supplemental Oxygen General: Alert, Oriented, 4 HEENT: Conjunctiva Clear, EACs Clear, EOMI, Hearing Intact, Mucosa Moist & [place] Neck: Supple, Trachea Midline, Lymphadenopathy (Left side) Lungs: Clear to Auscultation, Normal Respiratory Effort Cardiovascular: Regular Rate, Regular Rhythm GI/Abdominal Exam: Normal Bowel Sounds, Soft, Non-Tender, No Organomegaly, No Distention, No Abnormal Bruit, No Mass Extremities: Normal Inspection, Normal Range of Motion, Non-Tender, No Pedal Edema, Normal Capillary Refill Skin: Warm, Dry, Intact Neuro Extensive - Motor, Sensory, Reflexes: CN II-XII Intact Psychiatric: Alert, Normal Affect, Normal Mood - Patient Data Lab Results Last 24 hrs: Laboratory Results - last 24 hr 12/12/20 12/12/20 12/12/20 Range/Units 11:05 11:05 11:05 WBC 9.69 H (4.23-9.07) K/mm3 RBC 4.91 (4.63-6.08) M/mm3 Hgb 15.0 (13.7-17.5) gm/dl Hct 45.4 (40.1-51.0) % MCV 92.5 H (79.0-92.2) fl MCH 30.5 (25.7-32.2) pg MCHC 33.0 (32.2-35.5) g/dl RDW Std Deviation 45.6 H (35.1-43.9) fL Plt Count 168 (163-337) K/mm3 MPV 10.6 (9.4-12.3) fl Neut % (Auto) 79.1 H (34.0-67.9) % Lymph % (Auto) 10.7 L (21.8-53.1) % Smyth % (Auto) 9.3 (5.3-12.2) % Eos % (Auto) 0.6 L (0.8-7.0) Baso % (Auto) 0.1 (0.1-1.2) % Neut # (Auto) 7.66 H (1.78-5.38) K/mm3 Lymph # (Auto) 1.04 L (1.32-3.57) K/mm3 Smyth # (Auto) 0.90 H (0.30-0.82) K/mm3 Eos # (Auto) 0.06 (0.04-0.54) K/mm3 Baso # (Auto) 0.01 (0.01-0.08) K/mm3 PT 10.9 (9.7-12.0) SECONDS INR 1.02 APTT 28.4 (21.7-31.4) SECONDS D-Dimer, Quantitative 0.77 H (0.19-0.50) mg/L Puncture Site ABG pH (7.35-7.45) ABG pCO2 (35.0-45.0) mmHg ABG pO2 (80.0-100.0) mmHg ABG HCO3 (22.0-26.0) meq/L ABG O2 Saturation (96.0-97.0) % ABG Base Excess (-2-2.0) Raj Test A-a Gradient mmHg O2 Delivery Device Oxygen Flow Rate FiO2 (21.00-100.00) % Sodium 142 (136-145) mEq/L Potassium 4.0 (3.5-5.1) mEq/L Chloride 104 (98-107) mEq/L Carbon Dioxide 29 (21-32) mEq/L Anion Gap 13.0 (5-15) BUN 33 H (7-18) mg/dL Creatinine 1.6 H (0.7-1.3) mg/dL Est Cr Clr Drug Dosing TNP Estimated GFR (MDRD) 41 (>60) mL/min BUN/Creatinine Ratio 20.6 H (14-18) Glucose 145 H (83-115) mg/dL Lactic Acid (0.4-2.0) mmol/L Calcium 9.9 (8.5-10.1) mg/dL Magnesium 1.8 (1.8-2.4) mg/dl Total Bilirubin 1.0 (0.2-1.0) mg/dL AST 15 (15-37) U/L ALT 23 (16-63) U/L Alkaline Phosphatase 103 (46-116) U/L Troponin I < 0.017 (0.00-0.056) ng/mL C-Reactive Protein 5.5 H* (<1.0) mg/dL NT-Pro-B Natriuret Pep (0-450) pg/mL Total Protein 7.1 (6.4-8.2) g/dl Albumin 3.8 (3.4-5.0) g/dl Globulin 3.3 gm/dL Albumin/Globulin Ratio 1.2 (1-2) Urine Color (Yellow) Urine Appearance (Clear) Urine pH (5.0-8.0) Ur Specific [place] (1.005-1.030) Urine Protein (Negative) Urine Glucose (UA) (Negative) Urine Ketones (Negative) Urine Occult Blood (Negative) Urine Nitrite (Negative) Urine Bilirubin (Negative) Urine Urobilinogen (0.2-1.0) Ur Leukocyte Esterase (Negative) Urine RBC (0-5) /hpf Urine WBC (0-5) /hpf Ur Squamous Epith Cells (0-5) /hpf Urine Bacteria (FEW) /hpf Urine Mucus (FEW) /hpf SARS-CoV-2 RNA (JUDI) (NEGATIVE) 12/12/20 12/12/20 12/12/20 Range/Units 11:05 11:05 11:11 WBC (4.23-9.07) K/mm3 RBC (4.63-6.08) M/mm3 Hgb (13.7-17.5) gm/dl Hct (40.1-51.0) % MCV (79.0-92.2) fl MCH (25.7-32.2) pg MCHC (32.2-35.5) g/dl RDW Std Deviation (35.1-43.9) fL Plt Count (163-337) K/mm3 MPV (9.4-12.3) fl Neut % (Auto) (34.0-67.9) % Lymph % (Auto) (21.8-53.1) % Smyth % (Auto) (5.3-12.2) % Eos % (Auto) (0.8-7.0) Baso % (Auto) (0.1-1.2) % Neut # (Auto) (1.78-5.38) K/mm3 Lymph # (Auto) (1.32-3.57) K/mm3 S[place]th # (Auto) (0.30-0.82) K/mm3 Eos # (Auto) (0.04-0.54) K/mm3 Baso # (Auto) (0.01-0.08) K/mm3 PT (9.7-12.0) SECONDS INR APTT (21.7-31.4) SECONDS D-Dimer, Quantitative (0.19-0.50) mg/L Puncture Site ABG pH (7.35-7.45) ABG pCO2 (35.0-45.0) mmHg ABG pO2 (80.0-100.0) mmHg ABG HCO3 (22.0-26.0) meq/L ABG O2 Saturation (96.0-97.0) % ABG Base Excess (-2-2.0) Raj Test A-a Gradient mmHg O2 Delivery Device Oxygen Flow Rate FiO2 (21.00-100.00) % Sodium (136-145) mEq/L Potassium (3.5-5.1) mEq/L Chloride (98-107) mEq/L Carbon Dioxide (21-32) mEq/L Anion Gap (5-15) BUN (7-18) mg/dL Creatinine (0.7-1.3) mg/dL Est Cr Clr Drug Dosing Estimated GFR (MDRD) (>60) mL/min BUN/Creatinine Ratio (14-18) Glucose (83-115) mg/dL Lactic Acid 3.2 H* (0.4-2.0) mmol/L Calcium (8.5-10.1) mg/dL Magnesium (1.8-2.4) mg/dl Total Bilirubin (0.2-1.0) mg/dL AST (15-37) U/L ALT (16-63) U/L Alkaline Phosphatase (46-116) U/L Troponin I (0.00-0.056) ng/mL C-Reactive Protein (<1.0) mg/dL NT-Pro-B Natriuret Pep 63 (0-450) pg/mL Total Protein (6.4-8.2) g/dl Albumin (3.4-5.0) g/dl Globulin gm/dL Albumin/Globulin Ratio (1-2) Urine Color (Yellow) Urine Appearance (Clear) Urine pH (5.0-8.0) Ur Specific [place] (1.005-1.030) Urine Protein (Negative) Urine Glucose (UA) (Negative) Urine Ketones (Negative) Urine Occult Blood (Negative) Urine Nitrite (Negative) Urine Bilirubin (Negative) Urine Urobilinogen (0.2-1.0) Ur Leukocyte Esterase (Negative) Urine RBC (0-5) /hpf Urine WBC (0-5) /hpf Ur Squamous Epith Cells (0-5) /hpf Urine Bacteria (FEW) /hpf Urine Mucus (FEW) /hpf SARS-CoV-2 RNA (JUDI) Negative (NEGATIVE) 12/12/20 12/12/20 12/12/20 Range/Units 14:50 15:00 15:03 WBC (4.23-9.07) K/mm3 RBC (4.63-6.08) M/mm3 Hgb (13.7-17.5) gm/dl Hct (40.1-51.0) % MCV (79.0-92.2) fl MCH (25.7-32.2) pg MCHC (32.2-35.5) g/dl RDW Std Deviation (35.1-43.9) fL Plt Count (163-337) K/mm3 MPV (9.4-12.3) fl Neut % (Auto) (34.0-67.9) % Lymph % (Auto) (21.8-53.1) % [place]th % (Auto) (5.3-12.2) % Eos % (Auto) (0.8-7.0) Baso % (Auto) (0.1-1.2) % Neut # (Auto) (1.78-5.38) K/mm3 Lymph # (Auto) (1.32-3.57) K/mm3 [place] # (Auto) (0.30-0.82) K/mm3 Eos # (Auto) (0.04-0.54) K/mm3 Baso # (Auto) (0.01-0.08) K/mm3 PT (9.7-12.0) SECONDS INR APTT (21.7-31.4) SECONDS D-Dimer, Quantitative (0.19-0.50) mg/L Puncture Site Rt radial ABG pH 7.38 (7.35-7.45) ABG pCO2 43.8 (35.0-45.0) mmHg ABG pO2 64.0 L (80.0-100.0) mmHg ABG HCO3 25.2 (22.0-26.0) meq/L ABG O2 Saturation 89.8 L (96.0-97.0) % ABG Base Excess 0.4 (-2-2.0) Raj Test Positive A-a Gradient 31 mmHg O2 Delivery Device Room air Oxygen Flow Rate 0.0 FiO2 21.00 (21.00-100.00) % Sodium (136-145) mEq/L Potassium (3.5-5.1) mEq/L Chloride (98-107) mEq/L Carbon Dioxide (21-32) mEq/L Anion Gap (5-15) BUN (7-18) mg/dL Creatinine (0.7-1.3) mg/dL Est Cr Clr Drug Dosing Estimated GFR (MDRD) (>60) mL/min BUN/Creatinine Ratio (14-18) Glucose (83-115) mg/dL Lactic Acid 1.2 (0.4-2.0) mmol/L Calcium (8.5-10.1) mg/dL Magnesium (1.8-2.4) mg/dl Total Bilirubin (0.2-1.0) mg/dL AST (15-37) U/L ALT (16-63) U/L Alkaline Phosphatase (46-116) U/L Troponin I (0.00-0.056) ng/mL C-Reactive Protein (<1.0) mg/dL NT-Pro-B Natriuret Pep (0-450) pg/mL Total Protein (6.4-8.2) g/dl Albumin (3.4-5.0) g/dl Globulin gm/dL Albumin/Globulin Ratio (1-2) Urine Color Light yellow (Yellow) Urine Appearance Slt cloudy H (Clear) Urine pH 7.0 (5.0-8.0) Ur Specific [place] 1.015 (1.005-1.030) Urine Protein Negative (Negative) Urine Glucose (UA) Negative (Negative) Urine Ketones Negative (Negative) Urine Occult Blood Trace-intact H (Negative) Urine Nitrite Negative (Negative) Urine Bilirubin Negative (Negative) Urine Urobilinogen 1.0 (0.2-1.0) Ur Leukocyte Esterase Negative (Negative) Urine RBC 5-10 H (0-5) /hpf Urine WBC 0-5 (0-5) /hpf Ur Squamous Epith Cells 0-5 (0-5) /hpf Urine Bacteria Few (FEW) /hpf Urine Mucus Not seen (FEW) /hpf SARS-CoV-2 RNA (JUDI) (NEGATIVE) Result Diagrams: 12/12/20 11:05 12/12/20 11:05 Sepsis Event Note - Evaluation Sepsis Screening Result: No Definite Risk - Focused Exam Vital Signs: Vital Signs Temp Pulse Resp BP Pulse Ox 12/12/20 15:27 73 16 159/76 H 91 L 12/12/20 13:59 76 16 132/61 96 12/12/20 11:13 94 20 166/78 H 93 L 12/12/20 10:33 97.8 F 85 20 168/76 H 88 L - Problem List (1) Elevated lactic acid level SNOMED Code(s): 3759186 ICD Code: R79.89 - OTHER SPECIFIED ABNORMAL FINDINGS OF BLOOD CHEMISTRY Status: Acute Current Visit: Yes (2) Hypoxia SNOMED Code(s): 271737204 ICD Code: R09.02 - HYPOXEMIA Status: Acute Current Visit: Yes (3) Renal insufficiency SNOMED Code(s): 016181582, 555761517 ICD Code: N28.9 - DISORDER OF KIDNEY AND URETER, UNSPECIFIED Status: Acute Current Visit: Yes (4) Sialadenitis SNOMED Code(s): 18132847 ICD Code: K11.20 - SIALOADENITIS, UNSPECIFIED Status: Acute Current Visit: Yes (5) Sialoliths SNOMED Code(s): 54671448 ICD Code: K11.5 - SIALOLITHIASIS Status: Acute Current Visit: Yes Problem List Initiated/Reviewed/Updated: Yes Orders Last 24hrs: Active Orders 24 hr Category Date Time Status Admission Status [Patient Status] [ADT] Routine ADT 12/12/20 15:30 Active Blood Glucose Check, Bedside [RC] WITHMEALSANDBED Care 12/12/20 17:45 Ordered Cardiac Monitoring [RC] . DIRECTED Care 12/12/20 10:58 Active Oxygen Therapy [RC] PRN Care 12/12/20 10:58 Active Oxygen Therapy [RC] PRN Care 12/12/20 17:41 Ordered Up With Assistance [RC] ASDIRECTED Care 12/12/20 17:41 Ordered VTE/DVT Education [RC] PER UNIT ROUTINE Care 12/12/20 17:41 Ordered Vital Signs [RC] Q4H Care 12/12/20 17:41 Ordered Regular Diet [DIET] Diet 12/13/20 Breakfast Ordered CULTURE BLOOD [BC] Stat Lab 12/12/20 14:50 Received CULTURE BLOOD [BC] Stat Lab 12/12/20 14:50 Received Acetaminophen [TylenoL] Med 12/12/20 17:41 Ordered 650 mg PO Q4H PRN Brimonidine [Alphagan 0.2% Ophth Soln] Med 12/13/20 09:00 Ordered 1 drop EYEBOTH DAILY Bumetanide [Bumex] Med 12/13/20 09:00 Ordered 1 mg PO DAILY Enoxaparin [Lovenox] Med 12/13/20 09:00 Ordered 40 mg SUBCUT DAILY Finasteride [Proscar] Med 12/12/20 21:00 Ordered 5 mg PO BEDTIME Insulin Lispro [HumaLOG] Med 12/12/20 22:00 Ordered See Protocol SUBCUT QIDACANDBED Latanoprost [Xalatan 0.005% Ophth Soln] Med 12/12/20 21:00 Ordered 2.5 ml EYEBOTH BEDTIME Levothyroxine Med 12/13/20 09:00 Ordered 224 mcg PO DAILY Losartan [Cozaar] Med 12/13/20 09:00 Ordered 50 mg PO DAILY Piperacillin/Tazobactam 4.5 GM - First Dose Med 12/12/20 17:48 Ordered Piperacillin/Tazobactam [Piperacil-Tazobact] 4.5 gm Sodium Chloride 0.9% [Normal Saline] 100 ml IV ONETIME Piperacillin/Tazobactam [Piperacil-Tazobact] 4.5 gm Med 12/12/20 18:00 Ordered Sodium Chloride 0.9% [Normal Saline] 100 ml IV Q8H Simvastatin [Zocor] Med 12/12/20 21:00 Ordered 20 mg PO BEDTIME Sodium Chloride 0.9% [Normal Saline] 100 ml Med 12/12/20 13:45 Active IV ASDIRECTED Sodium Chloride 0.9% [Saline Flush] Med 12/12/20 10:58 Active 10 ml FLUSH ASDIRECTED PRN Tamsulosin [Flomax] Med 12/12/20 21:00 Ordered 0.4 mg PO BEDTIME Blood Culture x2 Reflex Set [OM.PC] Stat Ot 12/12/20 14:36 Ordered Peripheral IV Insertion Adult [OM.PC] Stat Oth 12/12/20 10:58 Ordered Resuscitation Status Routine Resus Stat 12/12/20 17:04 Ordered Medication Orders Acetaminophen (Tylenol) 650 mg PO Q4H PRN PRN Reason: Pain (Mild 1-3)/fever Brimonidine Tartrate (Alphagan 0.2% Ophth Soln) ml EYEBOTH DAILY [facility] [place] Bumetanide (Bumex) 1 mg PO DAILY [facility] [place] Enoxaparin Sodium (Lovenox) 40 mg SUBCUT DAILY [facility] Finasteride (Proscar) 5 mg PO BEDTIME [facility] [place] Sodium Chloride (Normal Saline) 100 mls @ 60 mls/hr IV ASDIRECTED [facility] Last Admin: 12/12/20 13:41 Dose: 60 mls/hr Documented by: JOHN Insulin Human Lispro (Humalog) 0 unit SUBCUT QIDACANDBED [facility] [place]; Protocol Latanoprost (Xalatan 0.005% Ophth Soln) 2.5 ml EYEBOTH BEDTIME [facility] [place] Levothyroxine Sodium (Levothyroxine) 224 mcg PO DAILY [facility] [place] Losartan Potassium (Cozaar) 50 mg PO DAILY [facility] Simvastatin (Zocor) 20 mg PO BEDTIME [facility] Sodium Chloride (Saline Flush) 10 ml FLUSH ASDIRECTED PRN PRN Reason: Keep Vein Open Last Admin: 12/12/20 11:07 Dose: 10 ml Documented by: WENDI Tamsulosin HCl (Flomax) 0.4 mg PO BEDTIME [facility] [place] Assessment/Plan Comment:: Assessment 89-year-old male that presents with hypoxemia and left-sided neck pain for 3 da ys. Sialadenitis Transient elevation in lactic acid Hypoxemiaresolved Enlarged mediastinal lymph node on chest CT measuring 1.9 cm * CT scan of the neck only shows mildly enlarged right mandibular salivary gland as compared to the opposite side. Left side, area of concern, the submandibular gland shows evidence of calcification which could relate to calcifications within the salivary duct or other dystrophic calcifications * CT of the chest did show slightly enlarged lymph node within the anterior mediastinum which appears to be significantly increased from previous exam measuring 1.9 cm. * Initial lactic acid elevated at 3.2, Repeat 1.2 after fluid bolus * Received Rocephin in the emergency department * Blood cultures drawn * ABG: pH 7.38, PCO2 43.8, PO2 64.0, bicarb 25.2 on room air * Currently saturations in the low to mid 90s on room air CHF, hypertension, hyperlipidemia, Loera's esophagus, bronchitis, thrombocytopenia, type 2 diabetes * All well controlled at this time. Plan * Admit to medical floor * Follow blood cultures * Switched to Zosyn * Follow CBC, CMP, C-reactive protein * Add procalcitonin * VTE prophylaxis with Lovenox * CODE STATUS, full code - Mortality Measure Prognosis:: Good
[2020-12-12] MEDS: Finasteride 5 MG Tab PO SCH (20:44)
[2020-12-12] MEDS: Tamsulosin 0.4 MG Cap.ER PO SCH (20:44)
[2020-12-12] MEDS: Simvastatin 20 MG Tab PO SCH (20:44)
[2020-12-12] MEDS ORDERED: Latanoprost 0.005% Ophth Soln 2.5 ML Bottle EYEBOTH SCH (21:00)
[2020-12-13] MEDS: Piperacillin/Tazobactam 4.5 GM in Sodium Chloride 0.9% 100 ML IV SCH ×3 (01:23→18:30)
--- NOTE | 2020-12-13 08:35 | PCM.PN ---
- General Info Date of Service: 12/13/20 Admission Dx/Problem (Free Text): Admission Diagnosis/Problem Admission Diagnosis/Problem Hypoxia Subjective Update: The patient is an 89-year-old gentleman who had presented to the emergency department on December 12, 2020 out of concern for shortness of breath and left- sided neck swelling. The patient was noted to be hypoxemic through the emergency department at 88%. The patient says that today he has been improving with the use of antibiotics and was thought to be secondary to sialadenitis. He is currently being treated with Zosyn and he has been able to tolerate. Patient has denied any new pain. The patient also has been able to tolerate diet. Functional Status: Reports: Pain Controlled, Tolerating Diet - Review of Systems General: Reports: No Symptoms HEENT: Reports: Other (See above) Pulmonary: Reports: No Symptoms Cardiovascular: Reports: No Symptoms Gastrointestinal: Reports: No Symptoms Genitourinary: Reports: No Symptoms Musculoskeletal: Reports: No Symptoms Skin: Reports: No Symptoms Neurological: Reports: No Symptoms Psychiatric: Reports: No Symptoms - Patient Data Vitals - Most Recent: Last Vital Signs Temp 36.6 C 12/13/20 07:19 Pulse 77 12/13/20 07:19 Resp 16 12/13/20 07:19 BP 152/73 H 12/13/20 07:19 Pulse Ox 95 12/13/20 07:19 Weight - Most Recent: 108.817 kg I&O - Last 24 Hours: Intake & Output 12/12/20 12/13/20 12/13/20 22:59 06:59 14:59 Intake Total 300 Output Total 800 Balance -500 Lab Results Last 24 Hours: Laboratory Results - last 24 hr 12/12/20 12/12/20 12/12/20 Range/Units 11:05 11:05 11:05 WBC 9.69 H (4.23-9.07) K/mm3 RBC 4.91 (4.63-6.08) M/mm3 Hgb 15.0 (13.7-17.5) gm/dl Hct 45.4 (40.1-51.0) % MCV 92.5 H (79.0-92.2) fl MCH 30.5 (25.7-32.2) pg MCHC 33.0 (32.2-35.5) g/dl RDW Std Deviation 45.6 H (35.1-43.9) fL Plt Count 168 (163-337) K/mm3 MPV 10.6 (9.4-12.3) fl Neut % (Auto) 79.1 H (34.0-67.9) % Lymph % (Auto) 10.7 L (21.8-53.1) % Benzie % (Auto) 9.3 (5.3-12.2) % Eos % (Auto) 0.6 L (0.8-7.0) Baso % (Auto) 0.1 (0.1-1.2) % Neut # (Auto) 7.66 H (1.78-5.38) K/mm3 Lymph # (Auto) 1.04 L (1.32-3.57) K/mm3 Benzie # (Auto) 0.90 H (0.30-0.82) K/mm3 Eos # (Auto) 0.06 (0.04-0.54) K/mm3 Baso # (Auto) 0.01 (0.01-0.08) K/mm3 PT 10.9 (9.7-12.0) SECONDS INR 1.02 APTT 28.4 (21.7-31.4) SECONDS D-Dimer, Quantitative 0.77 H (0.19-0.50) mg/L Puncture Site ABG pH (7.35-7.45) ABG pCO2 (35.0-45.0) mmHg ABG pO2 (80.0-100.0) mmHg ABG HCO3 (22.0-26.0) meq/L ABG O2 Saturation (96.0-97.0) % ABG Base Excess (-2-2.0) Raj Test A-a Gradient mmHg O2 Delivery Device Oxygen Flow Rate FiO2 (21.00-100.00) % Sodium 142 (136-145) mEq/L Potassium 4.0 (3.5-5.1) mEq/L Chloride 104 (98-107) mEq/L Carbon Dioxide 29 (21-32) mEq/L Anion Gap 13.0 (5-15) BUN 33 H (7-18) mg/dL Creatinine 1.6 H (0.7-1.3) mg/dL Est Cr Clr Drug Dosing TNP Estimated GFR (MDRD) 41 (>60) mL/min BUN/Creatinine Ratio 20.6 H (14-18) Glucose 145 H (83-115) mg/dL POC Glucose (83-110) mg/dL Lactic Acid (0.4-2.0) mmol/L Calcium 9.9 (8.5-10.1) mg/dL Phosphorus (2.6-4.7) mg/dL Magnesium 1.8 (1.8-2.4) mg/dl Total Bilirubin 1.0 (0.2-1.0) mg/dL AST 15 (15-37) U/L ALT 23 (16-63) U/L Alkaline Phosphatase 103 (46-116) U/L Troponin I < 0.017 (0.00-0.056) ng/mL C-Reactive Protein 5.5 H* (<1.0) mg/dL NT-Pro-B Natriuret Pep (0-450) pg/mL Total Protein 7.1 (6.4-8.2) g/dl Albumin 3.8 (3.4-5.0) g/dl Globulin 3.3 gm/dL Albumin/Globulin Ratio 1.2 (1-2) Urine Color (Yellow) Urine Appearance (Clear) Urine pH (5.0-8.0) Ur Specific Rinard (1.005-1.030) Urine Protein (Negative) Urine Glucose (UA) (Negative) Urine Ketones (Negative) Urine Occult Blood (Negative) Urine Nitrite (Negative) Urine Bilirubin (Negative) Urine Urobilinogen (0.2-1.0) Ur Leukocyte Esterase (Negative) Urine RBC (0-5) /hpf Urine WBC (0-5) /hpf Ur Squamous Epith Cells (0-5) /hpf Urine Bacteria (FEW) /hpf Urine Mucus (FEW) /hpf SARS-CoV-2 RNA (JUDI) (NEGATIVE) 12/12/20 12/12/20 12/12/20 Range/Units 11:05 11:05 11:11 WBC (4.23-9.07) K/mm3 RBC (4.63-6.08) M/mm3 Hgb (13.7-17.5) gm/dl Hct (40.1-51.0) % MCV (79.0-92.2) fl MCH (25.7-32.2) pg MCHC (32.2-35.5) g/dl RDW Std Deviation (35.1-43.9) fL Plt Count (163-337) K/mm3 MPV (9.4-12.3) fl Neut % (Auto) (34.0-67.9) % Lymph % (Auto) (21.8-53.1) % Benzie % (Auto) (5.3-12.2) % Eos % (Auto) (0.8-7.0) Baso % (Auto) (0.1-1.2) % Neut # (Auto) (1.78-5.38) K/mm3 Lymph # (Auto) (1.32-3.57) K/mm3 Benzie # (Auto) (0.30-0.82) K/mm3 Eos # (Auto) (0.04-0.54) K/mm3 Baso # (Auto) (0.01-0.08) K/mm3 PT (9.7-12.0) SECONDS INR APTT (21.7-31.4) SECONDS D-Dimer, Quantitative (0.19-0.50) mg/L Puncture Site ABG pH (7.35-7.45) ABG pCO2 (35.0-45.0) mmHg ABG pO2 (80.0-100.0) mmHg ABG HCO3 (22.0-26.0) meq/L ABG O2 Saturation (96.0-97.0) % ABG Base Excess (-2-2.0) Raj Test A-a Gradient mmHg O2 Delivery Device Oxygen Flow Rate FiO2 (21.00-100.00) % Sodium (136-145) mEq/L Potassium (3.5-5.1) mEq/L Chloride (98-107) mEq/L Carbon Dioxide (21-32) mEq/L Anion Gap (5-15) BUN (7-18) mg/dL Creatinine (0.7-1.3) mg/dL Est Cr Clr Drug Dosing Estimated GFR (MDRD) (>60) mL/min BUN/Creatinine Ratio (14-18) Glucose (83-115) mg/dL POC Glucose (83-110) mg/dL Lactic Acid 3.2 H* (0.4-2.0) mmol/L Calcium (8.5-10.1) mg/dL Phosphorus (2.6-4.7) mg/dL Magnesium (1.8-2.4) mg/dl Total Bilirubin (0.2-1.0) mg/dL AST (15-37) U/L ALT (16-63) U/L Alkaline Phosphatase (46-116) U/L Troponin I (0.00-0.056) ng/mL C-Reactive Protein (<1.0) mg/dL NT-Pro-B Natriuret Pep 63 (0-450) pg/mL Total Protein (6.4-8.2) g/dl Albumin (3.4-5.0) g/dl Globulin gm/dL Albumin/Globulin Ratio (1-2) Urine Color (Yellow) Urine Appearance (Clear) Urine pH (5.0-8.0) Ur Specific Rinard (1.005-1.030) Urine Protein (Negative) Urine Glucose (UA) (Negative) Urine Ketones (Negative) Urine Occult Blood (Negative) Urine Nitrite (Negative) Urine Bilirubin (Negative) Urine Urobilinogen (0.2-1.0) Ur Leukocyte Esterase (Negative) Urine RBC (0-5) /hpf Urine WBC (0-5) /hpf Ur Squamous Epith Cells (0-5) /hpf Urine Bacteria (FEW) /hpf Urine Mucus (FEW) /hpf SARS-CoV-2 RNA (JUDI) Negative (NEGATIVE) 12/12/20 12/12/20 12/12/20 Range/Units 14:50 15:00 15:03 WBC (4.23-9.07) K/mm3 RBC (4.63-6.08) M/mm3 Hgb (13.7-17.5) gm/dl Hct (40.1-51.0) % MCV (79.0-92.2) fl MCH (25.7-32.2) pg MCHC (32.2-35.5) g/dl RDW Std Deviation (35.1-43.9) fL Plt Count (163-337) K/mm3 MPV (9.4-12.3) fl Neut % (Auto) (34.0-67.9) % Lymph % (Auto) (21.8-53.1) % Benzie % (Auto) (5.3-12.2) % Eos % (Auto) (0.8-7.0) Baso % (Auto) (0.1-1.2) % Neut # (Auto) (1.78-5.38) K/mm3 Lymph # (Auto) (1.32-3.57) K/mm3 Benzie # (Auto) (0.30-0.82) K/mm3 Eos # (Auto) (0.04-0.54) K/mm3 Baso # (Auto) (0.01-0.08) K/mm3 PT (9.7-12.0) SECONDS INR APTT (21.7-31.4) SECONDS D-Dimer, Quantitative (0.19-0.50) mg/L Puncture Site Rt radial ABG pH 7.38 (7.35-7.45) ABG pCO2 43.8 (35.0-45.0) mmHg ABG pO2 64.0 L (80.0-100.0) mmHg ABG HCO3 25.2 (22.0-26.0) meq/L ABG O2 Saturation 89.8 L (96.0-97.0) % ABG Base Excess 0.4 (-2-2.0) Raj Test Positive A-a Gradient 31 mmHg O2 Delivery Device Room air Oxygen Flow Rate 0.0 FiO2 21.00 (21.00-100.00) % Sodium (136-145) mEq/L Potassium (3.5-5.1) mEq/L Chloride (98-107) mEq/L Carbon Dioxide (21-32) mEq/L Anion Gap (5-15) BUN (7-18) mg/dL Creatinine (0.7-1.3) mg/dL Est Cr Clr Drug Dosing Estimated GFR (MDRD) (>60) mL/min BUN/Creatinine Ratio (14-18) Glucose (83-115) mg/dL POC Glucose (83-110) mg/dL Lactic Acid 1.2 (0.4-2.0) mmol/L Calcium (8.5-10.1) mg/dL Phosphorus (2.6-4.7) mg/dL Magnesium (1.8-2.4) mg/dl Total Bilirubin (0.2-1.0) mg/dL AST (15-37) U/L ALT (16-63) U/L Alkaline Phosphatase (46-116) U/L Troponin I (0.00-0.056) ng/mL C-Reactive Protein (<1.0) mg/dL NT-Pro-B Natriuret Pep (0-450) pg/mL Total Protein (6.4-8.2) g/dl Albumin (3.4-5.0) g/dl Globulin gm/dL Albumin/Globulin Ratio (1-2) Urine Color Light yellow (Yellow) Urine Appearance Slt cloudy H (Clear) Urine pH 7.0 (5.0-8.0) Ur Specific Rinard 1.015 (1.005-1.030) Urine Protein Negative (Negative) Urine Glucose (UA) Negative (Negative) Urine Ketones Negative (Negative) Urine Occult Blood Trace-intact H (Negative) Urine Nitrite Negative (Negative) Urine Bilirubin Negative (Negative) Urine Urobilinogen 1.0 (0.2-1.0) Ur Leukocyte Esterase Negative (Negative) Urine RBC 5-10 H (0-5) /hpf Urine WBC 0-5 (0-5) /hpf Ur Squamous Epith Cells 0-5 (0-5) /hpf Urine Bacteria Few (FEW) /hpf Urine Mucus Not seen (FEW) /hpf SARS-CoV-2 RNA (JUDI) (NEGATIVE) 12/12/20 12/13/20 12/13/20 Range/Units 21:33 05:45 05:45 WBC 6.01 (4.23-9.07) K/mm3 RBC 4.66 (4.63-6.08) M/mm3 Hgb 14.2 (13.7-17.5) gm/dl Hct 43.4 (40.1-51.0) % MCV 93.1 H (79.0-92.2) fl MCH 30.5 (25.7-32.2) pg MCHC 32.7 (32.2-35.5) g/dl RDW Std Deviation 47.2 H (35.1-43.9) fL Plt Count 179 (163-337) K/mm3 MPV 10.9 (9.4-12.3) fl Neut % (Auto) 66.5 (34.0-67.9) % Lymph % (Auto) 20.5 L (21.8-53.1) % Benzie % (Auto) 9.8 (5.3-12.2) % Eos % (Auto) 2.8 (0.8-7.0) Baso % (Auto) 0.2 (0.1-1.2) % Neut # (Auto) 4.00 (1.78-5.38) K/mm3 Lymph # (Auto) 1.23 L (1.32-3.57) K/mm3 Benzie # (Auto) 0.59 (0.30-0.82) K/mm3 Eos # (Auto) 0.17 (0.04-0.54) K/mm3 Baso # (Auto) 0.01 (0.01-0.08) K/mm3 PT (9.7-12.0) SECONDS INR APTT (21.7-31.4) SECONDS D-Dimer, Quantitative (0.19-0.50) mg/L Puncture Site ABG pH (7.35-7.45) ABG pCO2 (35.0-45.0) mmHg ABG pO2 (80.0-100.0) mmHg ABG HCO3 (22.0-26.0) meq/L ABG O2 Saturation (96.0-97.0) % ABG Base Excess (-2-2.0) Raj Test A-a Gradient mmHg O2 Delivery Device Oxygen Flow Rate FiO2 (21.00-100.00) % Sodium 145 (136-145) mEq/L Potassium 4.3 (3.5-5.1) mEq/L Chloride 108 H (98-107) mEq/L Carbon Dioxide 26 (21-32) mEq/L Anion Gap 15.3 H (5-15) BUN 26 H (7-18) mg/dL Creatinine 1.4 H (0.7-1.3) mg/dL Est Cr Clr Drug Dosing 37.66 Estimated GFR (MDRD) 48 (>60) mL/min BUN/Creatinine Ratio 18.6 H (14-18) Glucose 112 (83-115) mg/dL POC Glucose 158 H (83-110) mg/dL Lactic Acid (0.4-2.0) mmol/L Calcium 9.7 (8.5-10.1) mg/dL Phosphorus 2.2 L (2.6-4.7) mg/dL Magnesium 1.8 (1.8-2.4) mg/dl Total Bilirubin 1.1 H (0.2-1.0) mg/dL AST 16 (15-37) U/L ALT 17 (16-63) U/L Alkaline Phosphatase 81 (46-116) U/L Troponin I (0.00-0.056) ng/mL C-Reactive Protein 7.4 H* (<1.0) mg/dL NT-Pro-B Natriuret Pep (0-450) pg/mL Total Protein 6.3 L (6.4-8.2) g/dl Albumin 3.2 L (3.4-5.0) g/dl Globulin 3.1 gm/dL Albumin/Globulin Ratio 1.0 (1-2) Urine Color (Yellow) Urine Appearance (Clear) Urine pH (5.0-8.0) Ur Specific Rinard (1.005-1.030) Urine Protein (Negative) Urine Glucose (UA) (Negative) Urine Ketones (Negative) Urine Occult Blood (Negative) Urine Nitrite (Negative) Urine Bilirubin (Negative) Urine Urobilinogen (0.2-1.0) Ur Leukocyte Esterase (Negative) Urine RBC (0-5) /hpf Urine WBC (0-5) /hpf Ur Squamous Epith Cells (0-5) /hpf Urine Bacteria (FEW) /hpf Urine Mucus (FEW) /hpf SARS-CoV-2 RNA (JUDI) (NEGATIVE) 12/13/20 Range/Units 06:52 WBC (4.23-9.07) K/mm3 RBC (4.63-6.08) M/mm3 Hgb (13.7-17.5) gm/dl Hct (40.1-51.0) % MCV (79.0-92.2) fl MCH (25.7-32.2) pg MCHC (32.2-35.5) g/dl RDW Std Deviation (35.1-43.9) fL Plt Count (163-337) K/mm3 MPV (9.4-12.3) fl Neut % (Auto) (34.0-67.9) % Lymph % (Auto) (21.8-53.1) % Benzie % (Auto) (5.3-12.2) % Eos % (Auto) (0.8-7.0) Baso % (Auto) (0.1-1.2) % Neut # (Auto) (1.78-5.38) K/mm3 Lymph # (Auto) (1.32-3.57) K/mm3 Benzie # (Auto) (0.30-0.82) K/mm3 Eos # (Auto) (0.04-0.54) K/mm3 Baso # (Auto) (0.01-0.08) K/mm3 PT (9.7-12.0) SECONDS INR APTT (21.7-31.4) SECONDS D-Dimer, Quantitative (0.19-0.50) mg/L Puncture Site ABG pH (7.35-7.45) ABG pCO2 (35.0-45.0) mmHg ABG pO2 (80.0-100.0) mmHg ABG HCO3 (22.0-26.0) meq/L ABG O2 Saturation (96.0-97.0) % ABG Base Excess (-2-2.0) Raj Test A-a Gradient mmHg O2 Delivery Device Oxygen Flow Rate FiO2 (21.00-100.00) % Sodium (136-145) mEq/L Potassium (3.5-5.1) mEq/L Chloride (98-107) mEq/L Carbon Dioxide (21-32) mEq/L Anion Gap (5-15) BUN (7-18) mg/dL Creatinine (0.7-1.3) mg/dL Est Cr Clr Drug Dosing Estimated GFR (MDRD) (>60) mL/min BUN/Creatinine Ratio (14-18) Glucose (83-115) mg/dL POC Glucose 106 (83-110) mg/dL Lactic Acid (0.4-2.0) mmol/L Calcium (8.5-10.1) mg/dL Phosphorus (2.6-4.7) mg/dL Magnesium (1.8-2.4) mg/dl Total Bilirubin (0.2-1.0) mg/dL AST (15-37) U/L ALT (16-63) U/L Alkaline Phosphatase (46-116) U/L Troponin I (0.00-0.056) ng/mL C-Reactive Protein (<1.0) mg/dL NT-Pro-B Natriuret Pep (0-450) pg/mL Total Protein (6.4-8.2) g/dl Albumin (3.4-5.0) g/dl Globulin gm/dL Albumin/Globulin Ratio (1-2) Urine Color (Yellow) Urine Appearance (Clear) Urine pH (5.0-8.0) Ur Specific Rinard (1.005-1.030) Urine Protein (Negative) Urine Glucose (UA) (Negative) Urine Ketones (Negative) Urine Occult Blood (Negative) Urine Nitrite (Negative) Urine Bilirubin (Negative) Urine Urobilinogen (0.2-1.0) Ur Leukocyte Esterase (Negative) Urine RBC (0-5) /hpf Urine WBC (0-5) /hpf Ur Squamous Epith Cells (0-5) /hpf Urine Bacteria (FEW) /hpf Urine Mucus (FEW) /hpf SARS-CoV-2 RNA (JUDI) (NEGATIVE) Med Orders - Current: Current Medications Acetaminophen (Tylenol) 650 mg PO Q4H PRN PRN Reason: Pain (Mild 1-3)/fever Brimonidine Tartrate (Alphagan 0.2% Ophth Soln) 0 ml EYEBOTH DAILY [facility] Bumetanide (Bumex) 1 mg PO DAILY [facility] Enoxaparin Sodium (Lovenox) 40 mg SUBCUT DAILY [facility] Finasteride (Proscar) 5 mg PO BEDTIME [facility] Last Admin: 12/12/20 20:44 Dose: 5 mg Documented by: Sodium Chloride (Normal Saline) 100 mls @ 60 mls/hr IV ASDIRECTED [facility] Last Admin: 12/12/20 13:41 Dose: 60 mls/hr Documented by: Piperacillin Sod/Tazobactam (Sod 4.5 gm/ Sodium Chloride) 100 mls @ 25 mls/hr IV Q8H [facility] Last Admin: 12/13/20 01:23 Dose: 25 mls/hr Documented by: Insulin Human Lispro (Humalog) 0 unit SUBCUT QIDACANDBED [facility]; Protocol Last Admin: 12/12/20 21:42 Dose: 2 units Documented by: Latanoprost (Xalatan 0.005% Ophth Soln) 2.5 ml EYEBOTH BEDTIME [facility] Last Admin: 12/12/20 20:44 Dose: 1 drop Documented by: Levothyroxine Sodium (Levothyroxine) 224 mcg PO DAILY [facility] Losartan Potassium (Cozaar) 50 mg PO DAILY [facility] Simvastatin (Zocor) 20 mg PO BEDTIME [facility] Last Admin: 12/12/20 20:44 Dose: 20 mg Documented by: Sodium Chloride (Saline Flush) 10 ml FLUSH ASDIRECTED PRN PRN Reason: Keep Vein Open Last Admin: 12/12/20 11:07 Dose: 10 ml Documented by: Tamsulosin HCl (Flomax) 0.4 mg PO BEDTIME [facility] Last Admin: 12/12/20 20:44 Dose: 0.4 mg Documented by: Discontinued Medications Sodium Chloride (Normal Saline) 500 mls @ 1,000 mls/hr IV .BOLUS ONE Stop: 12/12/20 12:29 Last Admin: 12/12/20 12:10 Dose: 1,000 mls/hr Documented by: Ceftriaxone Sodium 2 gm/ (Sodium Chloride) 100 mls @ 200 mls/hr IV ONETIME ONE Stop: 12/12/20 15:03 Last Admin: 12/12/20 15:10 Dose: 200 mls/hr Documented by: Piperacillin Sod/Tazobactam (Sod 4.5 gm/ Sodium Chloride) 100 mls @ 200 mls/hr IV ONETIME ONE Stop: 12/12/20 18:17 Last Admin: 12/12/20 18:46 Dose: 200 mls/hr Documented by: Iopamidol (Isovue-370 (76%)) 100 ml IVPUSH ONETIME ONE Stop: 12/12/20 13:41 Last Admin: 12/12/20 13:40 Dose: 100 ml Documented by: Lorazepam (Ativan) 0.5 mg IVPUSH ONETIME ONE Stop: 12/12/20 12:38 Last Admin: 12/12/20 12:44 Dose: 0.5 mg Documented by: Sodium Chloride (Saline Flush) 10 ml FLUSH ONETIME ONE Stop: 12/12/20 13:41 Last Admin: 12/12/20 13:40 Dose: 10 ml Documented by: - Exam Quality Assessment: DVT Prophylaxis. No: Supplemental Oxygen General: Alert, Oriented, Cooperative HEENT: Pupils Equal, Pupils Reactive, EOMI, Mucous Membr. Moist/[place] Neck: Supple, Trachea Midline, Lymphadenopathy (Left-sided anterior chain) Lungs: Clear to Auscultation, Normal Respiratory Effort Cardiovascular: Regular Rate, Regular Rhythm GI/Abdominal Exam: Normal Bowel Sounds, Soft, Non-Tender, No Distention (Male) Exam: Deferred Back Exam: Normal Inspection, Full Range of Motion Extremities: Normal Inspection, Normal Range of Motion, No Pedal Edema Skin: Warm, Dry, Intact Neurological: No New Focal Deficit Psy/Mental Status: Alert, Normal Affect, Normal Mood Sepsis Event Note - Evaluation Sepsis Screening Result: No Definite Risk - Focused Exam Vital Signs: Vital Signs Temp Pulse Resp BP BP Pulse Ox 12/13/20 07:19 36.6 C 77 16 152/73 H 95 12/13/20 05:14 36.7 C 73 20 159/68 H 93 L 12/13/20 03:27 136/76 12/13/20 03:21 36.7 C 68 18 160/124 H 94 L 12/13/20 01:34 36.9 C 71 14 141/66 H 92 L 12/13/20 00:26 36.9 C 80 18 164/73 H 91 L 12/12/20 20:53 36.9 C 79 14 153/82 H 90 L - Problem List & Annotations (1) Hypoxia SNOMED Code(s): 971865994 Code(s): R09.02 - HYPOXEMIA Status: Acute Priority: High Current Visit: Yes (2) Sialadenitis SNOMED Code(s): 00455738 Code(s): K11.20 - SIALOADENITIS, UNSPECIFIED Status: Acute Priority: High Current Visit: Yes (3) Chronic renal disease, stage 3, moderately decreased glomerular filtration rate (GFR) between 30-59 mL/min/1.73 square meter SNOMED Code(s): 004021116 Code(s): N18.30 - CHRONIC KIDNEY DISEASE, STAGE 3 UNSPECIFIED Status: Chronic Priority: Medium Current Visit: Yes Qualifiers: Chronic kidney disease stage 3 subtype: stage 3b (GFR 30-44) Qualified Code(s): N18.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, stage 3b (4) Sialoliths SNOMED Code(s): 95233385 Code(s): K11.5 - SIALOLITHIASIS Status: Chronic Priority: High Current Visit: Yes (5) Type II diabetes mellitus SNOMED Code(s): 94071190 Code(s): E11.9 - TYPE 2 DIABETES MELLITUS WITHOUT COMPLICATIONS Status: Chronic Priority: Medium Current Visit: No Qualifiers: Diabetes mellitus terminal makeup operator insulin use: unspecified skilled nursing insulin use status Diabetes mellitus complication status: with other specified complication Qualified Code(s): E11.69 - Type 2 diabetes mellitus with other specified complication - Problem List Review Problem List Initiated/Reviewed/Updated: Yes - Assessment Assessment:: The patient is an 89-year-old gentleman who has experienced some improvement with the use of the IV antibiotics for his sialadenitis. Continue Zosyn. I have also ordered that the patient be set up with ENT appointment prior to dis charge there is a concern for neoplastic process as the patient did have a CT scan which showed a slightly enlarged lymph node near the mediastinum. The patient also has been noted on CT scan to have sialolithiasis. Patient also has stable chronic kidney disease and basic metabolic panel has been ordered for this. CBC has also been ordered to check with his leukocytosis which is currently resolved. He has been encouraged to ambulate. Continue with carb constant diet. He is also currently anticoagulated with Lovenox for DVT prophylaxis. Patient should be ready for discharge in 1 to 2 days. - Plan Plan:: Assessment 89-year-old male that presents with hypoxemia and left-sided neck pain for 3 days. Sialadenitis Transient elevation in lactic acid Hypoxemiaresolved Enlarged mediastinal lymph node on chest CT measuring 1.9 cm * CT scan of the neck only shows mildly enlarged right mandibular salivary gland as compared to the opposite side. Left side, area of concern, the submandibular gland shows evidence of calcification which could relate to calcifications within the salivary duct or other dystrophic calcifications * CT of the chest did show slightly enlarged lymph node within the anterior mediastinum which appears to be significantly increased from previous exam measuring 1.9 cm. * Initial lactic acid elevated at 3.2, Repeat 1.2 after fluid bolus * Received Rocephin in the emergency department * Blood cultures drawn * ABG: pH 7.38, PCO2 43.8, PO2 64.0, bicarb 25.2 on room air * Currently saturations in the low to mid 90s on room air CHF, hypertension, hyperlipidemia, Loera's esophagus, bronchitis, thrombocytopenia, type 2 diabetes * All well controlled at this time. Plan * Admit to medical floor * Follow blood cultures * Switched to Zosyn * Follow CBC, CMP, C-reactive protein * Add procalcitonin * VTE prophylaxis with Lovenox * CODE STATUS, full code
[2020-12-13] MEDS: Levothyroxine 112 MCG Tab PO SCH (08:56)
[2020-12-13] MEDS: Enoxaparin 40 MG/0.4 ML Syringe SUBCUT SCH (08:56)
[2020-12-13] MEDS: Losartan 50 MG Tab PO SCH (08:57)
[2020-12-13] MEDS: Bumetanide 1 MG Tab PO SCH (08:57)
[2020-12-13] MEDS: Brimonidine 0.2% Ophth Soln 5 ML Bottle EYEBOTH SCH (09:21)
[2020-12-13] MEDS ORDERED: Docusate Sodium 100 MG Cap PO PRN (15:24)
[2020-12-13] MEDS ORDERED: Latanoprost 0.005% Ophth Soln 2.5 ML Bottle EYEBOTH SCH (21:00)
[2020-12-13] MEDS: Finasteride 5 MG Tab PO SCH (21:45)
[2020-12-13] MEDS: Simvastatin 20 MG Tab PO SCH (21:45)
[2020-12-13] MEDS: Tamsulosin 0.4 MG Cap.ER PO SCH (21:45)
[2020-12-14] MEDS: Piperacillin/Tazobactam 4.5 GM in Sodium Chloride 0.9% 100 ML IV SCH ×2 (02:18→09:03)
[2020-12-14] MEDS ORDERED: Magnesium Sulfate/Water 2 GM/50 ML BAG IV ONE (07:30)
--- NOTE | 2020-12-14 07:47 | PCM.DCSUM1 ---
Discharge Summary - Hospital Course Diagnosis: Stroke: No - Discharge Data Discharge Date: 12/14/20 Discharge Disposition: Home, Self-Care 01 Condition: Good - Referral to Home Health Primary Care Physician: Carl Esquivel MD - Discharge Diagnosis/Problem(s) (1) Hypoxia SNOMED Code(s): 880156740 ICD Code: R09.02 - HYPOXEMIA Status: Resolved Priority: High Current Visit: Yes (2) Sialadenitis SNOMED Code(s): 86378096 ICD Code: K11.20 - SIALOADENITIS, UNSPECIFIED Status: Resolved Priority: High Current Visit: Yes (3) Chronic renal disease, stage 3, moderately decreased glomerular filtration rate (GFR) between 30-59 mL/min/1.73 square meter SNOMED Code(s): 745593648 ICD Code: N18.30 - CHRONIC KIDNEY DISEASE, STAGE 3 UNSPECIFIED Status: Chronic Priority: Medium Current Visit: Yes Qualifiers: Chronic kidney disease stage 3 subtype: stage 3b (GFR 30-44) Qualified Code(s): N18.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, stage 3b (4) Sialoliths SNOMED Code(s): 47665387 ICD Code: K11.5 - SIALOLITHIASIS Status: Chronic Priority: High Current Visit: Yes (5) Type II diabetes mellitus SNOMED Code(s): 50657811 ICD Code: E11.9 - TYPE 2 DIABETES MELLITUS WITHOUT COMPLICATIONS Status: Chronic Priority: Medium Current Visit: No Qualifiers: Diabetes mellitus cargo router insulin use: unspecified cargo router insulin use status Diabetes mellitus complication status: with other specified complication Qualified Code(s): E11.69 - Type 2 diabetes mellitus with other specified complication - Patient Summary/Data Consults: Consultations 12/13/20 11:13 OT Evaluation and Treatment [CONS] Routine PT Evaluation and Treatment [CONS] Routine Hospital Course: The patient is an 89-year-old gentleman who was admitted to acute hospitalization due to shortness of breath and hypoxia. The patient was reported to have a lump on the left side of his neck that may have been interfering with his breathing. He had a CT scan that was done in the emergency department which showed enlarged right mandibular salivary gland as compared to the opposite side. He also had evidence of calcifications within the salivary duct. The patient also had a CT of his chest which was performed and showed slightly enlarged lymph node in the anterior mediastinum this was thought to be nonspecific. The patient then was admitted for acute sialadenitis and he was started on IV Zosyn to help with any infection that might be present. The patient was also noted to have sialolithiasis. On initial presentation the patient had a minimally elevated white blood cell count at 9.6 thousand and this had resolved by day of discharge. The patient also had tolerated the Zosyn. Through the short course of hospitalization the patient had improved rapidly. The swelling in the left side of his neck had improved. The patient also had remained afebrile throughout his entire course of hospitalization. The patient had initially required oxygen and by day of discharge the patient was saturating adequately on room air. The patient also has been tolerating his diet. The patient also has an appointment with ENT for evaluation of his salivary glands. The patient also has been placed on antibiotics clindamycin 300 mg p.o. 3 times daily for any further infective process. He is also been recommended to continue with his diet as tolerated. The patient should have activity as tolerated. The patient has been hemodynamically stable and he is discharged from hospitalization with the recommendations listed above. - Patient Instructions Diet: Heart Healthy Diet Activity: As Tolerated Notify Provider of: Fever, Increased Pain, Swelling and Redness - Discharge Plan *PRESCRIPTION DRUG MONITORING PROGRAM REVIEWED*: No *COPY OF PRESCRIPTION DRUG MONITORING REPORT IN PATIENT TRISTON: No Prescriptions/Med Rec: clindamycin HCL [Clindamycin HCl] 300 mg PO TID #12 capsule Home Medications: Home Meds Finasteride [Proscar] 5 mg PO BEDTIME 06/15/15 [History] Latanoprost 2.5 ml OP BEDTIME 06/15/15 [History] Levothyroxine Sodium [Synthroid] 224 mcg PO DAILY 06/15/15 [History] Omeprazole 20 mg PO DAILY 06/15/15 [History] Tamsulosin [Flomax] 0.4 mg PO BEDTIME 06/15/15 [History] Simvastatin [Zocor] 20 mg PO BEDTIME 05/24/16 [History] Brimonidine [Alphagan 0.2% Ophth Soln] 1 drop EYEBOTH DAILY 06/21/17 [History] Losartan [Cozaar] 50 mg PO DAILY 06/01/19 [History] Bumetanide 1 mg PO DAILY 12/12/20 [History] metFORMIN HCl [Metformin HCl] 500 mg PO BID 12/13/20 [History] clindamycin HCL [Clindamycin HCl] 300 mg PO TID #12 capsule 12/14/20 [Rx] Oxygen Therapy Mode: Room Air Patient Handouts: Salivary Gland Infection, Heart-Healthy Eating Plan, [id number], Salivary Stone, Living With Heart Failure Forms: ED Department Discharge Referrals: Braden Grover III, MD [Ordering Only Provider] - 12/27/20 2:00 pm (appointment is [place] time, come 30 minites prior to the appontment and bring photo ID and insurance cards, if you have to reschedule please call [phone].) Carl Esquivel MD [Primary Care Provider] - 12/28/20 10:45 am (please attend the scheduled hospital follow up appointment with your primary care provider) - Discharge Summary/Plan Comment DC Time >30 min.: Yes - General Info Date of Service: 12/14/20 Admission Dx/Problem (Free Text: Admission Diagnosis/Problem Admission Diagnosis/Problem Hypoxia, Sialadenitis Subjective Update: Overall, today the patient is doing much better. He is anxious to go home. He feels like he can be safely discharged to home. He has no further pain. Functional Status: Reports: Pain Controlled, Tolerating Diet - Review of Systems General: Reports: No Symptoms HEENT: Reports: No Symptoms Pulmonary: Reports: No Symptoms Cardiovascular: Reports: No Symptoms Gastrointestinal: Reports: No Symptoms Genitourinary: Reports: No Symptoms Musculoskeletal: Reports: No Symptoms Skin: Reports: No Symptoms Neurological: Reports: No Symptoms Psychiatric: Reports: No Symptoms - Patient Data Vitals - Most Recent: Last Vital Signs Temp 36.4 C 12/14/20 02:52 Pulse 83 12/14/20 02:52 Resp 18 12/14/20 02:52 BP 175/85 H 12/14/20 02:52 Pulse Ox 92 L 12/14/20 02:52 Weight - Most Recent: 106.64 kg I&O - Last 24 hours: Intake & Output 12/13/20 12/14/20 12/14/20 22:59 06:59 14:59 Intake Total 770 350 Output Total 600 Balance 170 350 Lab Results - Last 24 hrs: Laboratory Results - last 24 hr 12/12/20 12/13/20 12/13/20 Range/Units 11:05 11:08 16:57 WBC (4.23-9.07) K/mm3 RBC (4.63-6.08) M/mm3 Hgb (13.7-17.5) gm/dl Hct (40.1-51.0) % MCV (79.0-92.2) fl MCH (25.7-32.2) pg MCHC (32.2-35.5) g/dl RDW Std Deviation (35.1-43.9) fL Plt Count (163-337) K/mm3 MPV (9.4-12.3) fl Neut % (Auto) (34.0-67.9) % Lymph % (Auto) (21.8-53.1) % Riley % (Auto) (5.3-12.2) % Eos % (Auto) (0.8-7.0) Baso % (Auto) (0.1-1.2) % Neut # (Auto) (1.78-5.38) K/mm3 Lymph # (Auto) (1.32-3.57) K/mm3 Riley # (Auto) (0.30-0.82) K/mm3 Eos # (Auto) (0.04-0.54) K/mm3 Baso # (Auto) (0.01-0.08) K/mm3 Sodium (136-145) mEq/L Potassium (3.5-5.1) mEq/L Chloride (98-107) mEq/L Carbon Dioxide (21-32) mEq/L Anion Gap (5-15) BUN (7-18) mg/dL Creatinine (0.7-1.3) mg/dL Est Cr Clr Drug Dosing mL/min Estimated GFR (MDRD) (>60) mL/min BUN/Creatinine Ratio (14-18) Glucose (83-115) mg/dL POC Glucose 141 H 103 (83-110) mg/dL Calcium (8.5-10.1) mg/dL Magnesium (1.8-2.4) mg/dl Procalcitonin <0.05 ng/mL 12/13/20 12/14/20 12/14/20 Range/Units 21:08 04:23 04:23 WBC 4.29 (4.23-9.07) K/mm3 RBC 4.53 L (4.63-6.08) M/mm3 Hgb 13.6 L (13.7-17.5) gm/dl Hct 42.2 (40.1-51.0) % MCV 93.2 H (79.0-92.2) fl MCH 30.0 (25.7-32.2) pg MCHC 32.2 (32.2-35.5) g/dl RDW Std Deviation 46.4 H (35.1-43.9) fL Plt Count 177 (163-337) K/mm3 MPV 10.8 (9.4-12.3) fl Neut % (Auto) 63.6 (34.0-67.9) % Lymph % (Auto) 18.4 L (21.8-53.1) % Riley % (Auto) 13.1 H (5.3-12.2) % Eos % (Auto) 4.2 (0.8-7.0) Baso % (Auto) 0.5 (0.1-1.2) % Neut # (Auto) 2.73 (1.78-5.38) K/mm3 Lymph # (Auto) 0.79 L (1.32-3.57) K/mm3 Riley # (Auto) 0.56 (0.30-0.82) K/mm3 Eos # (Auto) 0.18 (0.04-0.54) K/mm3 Baso # (Auto) 0.02 (0.01-0.08) K/mm3 Sodium 146 H (136-145) mEq/L Potassium 4.3 (3.5-5.1) mEq/L Chloride 109 H (98-107) mEq/L Carbon Dioxide 28 (21-32) mEq/L Anion Gap 13.3 (5-15) BUN 23 H (7-18) mg/dL Creatinine 1.4 H (0.7-1.3) mg/dL Est Cr Clr Drug Dosing 37.66 mL/min Estimated GFR (MDRD) 48 (>60) mL/min BUN/Creatinine Ratio 16.4 (14-18) Glucose 132 H (83-115) mg/dL POC Glucose 139 H (83-110) mg/dL Calcium 10.1 (8.5-10.1) mg/dL Magnesium 1.7 L (1.8-2.4) mg/dl Procalcitonin ng/mL 12/14/20 Range/Units 06:10 WBC (4.23-9.07) K/mm3 RBC (4.63-6.08) M/mm3 Hgb (13.7-17.5) gm/dl Hct (40.1-51.0) % MCV (79.0-92.2) fl MCH (25.7-32.2) pg MCHC (32.2-35.5) g/dl RDW Std Deviation (35.1-43.9) fL Plt Count (163-337) K/mm3 MPV (9.4-12.3) fl Neut % (Auto) (34.0-67.9) % Lymph % (Auto) (21.8-53.1) % Riley % (Auto) (5.3-12.2) % Eos % (Auto) (0.8-7.0) Baso % (Auto) (0.1-1.2) % Neut # (Auto) (1.78-5.38) K/mm3 Lymph # (Auto) (1.32-3.57) K/mm3 Riley # (Auto) (0.30-0.82) K/mm3 Eos # (Auto) (0.04-0.54) K/mm3 Baso # (Auto) (0.01-0.08) K/mm3 Sodium (136-145) mEq/L Potassium (3.5-5.1) mEq/L Chloride (98-107) mEq/L Carbon Dioxide (21-32) mEq/L Anion Gap (5-15) BUN (7-18) mg/dL Creatinine (0.7-1.3) mg/dL Est Cr Clr Drug Dosing mL/min Estimated GFR (MDRD) (>60) mL/min BUN/Creatinine Ratio (14-18) Glucose (83-115) mg/dL POC Glucose 127 H (83-110) mg/dL Calcium (8.5-10.1) mg/dL Magnesium (1.8-2.4) mg/dl Procalcitonin ng/mL MIMI Results - Last 24 hrs: Microbiology 12/12/20 14:50 Aerobic Blood Culture - Preliminary Blood - Venous NO GROWTH AFTER 1 DAY Anaerobic Blood Culture - Preliminary NO GROWTH AFTER 1 DAY 12/12/20 14:50 Aerobic Blood Culture - Preliminary Blood - Venous - Lab Draw NO GROWTH AFTER 1 DAY Anaerobic Blood Culture - Preliminary NO GROWTH AFTER 1 DAY Med Orders - Current: Current Medications Acetaminophen (Tylenol) 650 mg PO Q4H PRN PRN Reason: Pain (Mild 1-3)/fever Brimonidine Tartrate (Alphagan 0.2% Ophth Soln) 0 ml EYEBOTH DAILY [facility] Last Admin: 12/13/20 09:21 Dose: 1 drop Documented by: Bumetanide (Bumex) 1 mg PO DAILY [facility] Last Admin: 12/13/20 08:57 Dose: 1 mg Documented by: Docusate Sodium (Colace) 200 mg PO DAILY PRN PRN Reason: Constipation Last Admin: 12/13/20 15:54 Dose: 200 mg Documented by: Enoxaparin Sodium (Lovenox) 40 mg SUBCUT DAILY [facility] Last Admin: 12/13/20 08:56 Dose: 40 mg Documented by: Finasteride (Proscar) 5 mg PO BEDTIME [facility] Last Admin: 12/13/20 21:45 Dose: 5 mg Documented by: Sodium Chloride (Normal Saline) 100 mls @ 60 mls/hr IV ASDIRECTED [facility] Last Admin: 12/12/20 13:41 Dose: 60 mls/hr Documented by: Piperacillin Sod/Tazobactam (Sod 4.5 gm/ Sodium Chloride) 100 mls @ 25 mls/hr IV Q8H [facility] Last Admin: 12/14/20 02:18 Dose: 25 mls/hr Documented by: Magnesium Sulfate (Magnesium Sulfate In Water 2 Gm/50 Ml) 2 gm in 50 mls @ 25 mls/hr IV ONETIME ONE Stop: 12/14/20 09:29 Insulin Human Lispro (Humalog) 0 unit SUBCUT QIDACANDBED [facility]; Protocol Last Admin: 12/14/20 07:28 Dose: Not Given Documented by: Latanoprost (Xalatan 0.005% Ophth Soln) 0 ml EYEBOTH BEDTIME [facility] Last Admin: 12/13/20 21:46 Dose: 1 drop Documented by: Levothyroxine Sodium (Levothyroxine) 224 mcg PO DAILY [facility] Last Admin: 12/13/20 08:56 Dose: 224 mcg Documented by: Losartan Potassium (Cozaar) 50 mg PO DAILY [facility] Last Admin: 12/13/20 08:57 Dose: 50 mg Documented by: Simvastatin (Zocor) 20 mg PO BEDTIME [facility] Last Admin: 12/13/20 21:45 Dose: 20 mg Documented by: Sodium Chloride (Saline Flush) 10 ml FLUSH ASDIRECTED PRN PRN Reason: Keep Vein Open Last Admin: 12/12/20 11:07 Dose: 10 ml Documented by: Tamsulosin HCl (Flomax) 0.4 mg PO BEDTIME [facility] Last Admin: 12/13/20 21:45 Dose: 0.4 mg Documented by: Discontinued Medications Sodium Chloride (Normal Saline) 500 mls @ 1,000 mls/hr IV .BOLUS ONE Stop: 12/12/20 12:29 Last Admin: 12/12/20 12:10 Dose: 1,000 mls/hr Documented by: Ceftriaxone Sodium 2 gm/ (Sodium Chloride) 100 mls @ 200 mls/hr IV ONETIME ONE Stop: 12/12/20 15:03 Last Admin: 12/12/20 15:10 Dose: 200 mls/hr Documented by: Piperacillin Sod/Tazobactam (Sod 4.5 gm/ Sodium Chloride) 100 mls @ 200 mls/hr IV ONETIME ONE Stop: 12/12/20 18:17 Last Admin: 12/12/20 18:46 Dose: 200 mls/hr Documented by: Iopamidol (Isovue-370 (76%)) 100 ml IVPUSH ONETIME ONE Stop: 12/12/20 13:41 Last Admin: 12/12/20 13:40 Dose: 100 ml Documented by: Latanoprost (Xalatan 0.005% Ophth Soln) 2.5 ml EYEBOTH BEDTIME [facility] Last Admin: 12/12/20 20:44 Dose: 1 drop Documented by: Lorazepam (Ativan) 0.5 mg IVPUSH ONETIME ONE Stop: 12/12/20 12:38 Last Admin: 12/12/20 12:44 Dose: 0.5 mg Documented by: Sodium Chloride (Saline Flush) 10 ml FLUSH ONETIME ONE Stop: 12/12/20 13:41 Last Admin: 12/12/20 13:40 Dose: 10 ml Documented by: - Exam Quality Assessment: Denies: Supplemental Oxygen General: Reports: Alert, Oriented, Cooperative, No Acute Distress HEENT: Reports: Pupils Equal, Pupils Reactive, EOMI, Mucous Membr. Moist/[place] Neck: Reports: Supple, Trachea Midline Lungs: Reports: Clear to Auscultation, Normal Respiratory Effort Cardiovascular: Reports: Regular Rate, Regular Rhythm GI/Abdominal Exam: Normal Bowel Sounds, Soft, Non-Tender, No Distention (Male) Exam: Deferred Rectal (Males) Exam: Deferred Back Exam: Reports: Normal Inspection, Full Range of Motion Extremities: Normal Inspection, Normal Range of Motion, No Pedal Edema Skin: Reports: Warm, Dry, Intact Neurological: Reports: No New Focal Deficit Psy/Mental Status: Reports: Alert, Normal Affect, Normal Mood
[2020-12-14] MEDS: Losartan 50 MG Tab PO SCH (08:01)
[2020-12-14] MEDS: Bumetanide 1 MG Tab PO SCH (08:01)
[2020-12-14] MEDS: Levothyroxine 112 MCG Tab PO SCH (08:02)
[2020-12-14] MEDS: Enoxaparin 40 MG/0.4 ML Syringe SUBCUT SCH (08:02)
[2020-12-14] MEDS: Brimonidine 0.2% Ophth Soln 5 ML Bottle EYEBOTH SCH (08:02)
[2020-12-14 12:08] VITALS: BP 137/68; PULSE 63
== END 2020-12-14 13:20 | disposition home or self-care (01) | DRG 155 ==
LOC: JD.ED 10:25 → JD.MS 15:30
PROVIDERS: ADMIT Family Medicine; ATTEND Family Medicine
DX: R09.02 Hypoxemia (principal); N28.9 Disorder of kidney and ureter, unspecified; K11.20 Sialoadenitis, unspecified; H33.20 Serous retinal detachment, unspecified eye; I13.0 Hypertensive heart and chronic kidney disease with heart failure and stage 1 through stage 4 chronic kidney disease, or unspecified chronic kidney disease; H91.93 Unspecified hearing loss, bilateral; N18.32 Chronic kidney disease, stage 3b; K11.5 Sialolithiasis; K44.9 Diaphragmatic hernia without obstruction or gangrene; E11.22 Type 2 diabetes mellitus with diabetic chronic kidney disease; E78.5 Hyperlipidemia, unspecified; N18.2 Chronic kidney disease, stage 2 (mild); E03.9 Hypothyroidism, unspecified; N40.0 Benign prostatic hyperplasia without lower urinary tract symptoms; H91.90 Unspecified hearing loss, unspecified ear; C64.1 Malignant neoplasm of right kidney, except renal pelvis; H54.7 Unspecified visual loss; E78.00 Pure hypercholesterolemia, unspecified; I50.9 Heart failure, unspecified; K21.9 Gastro-esophageal reflux disease without esophagitis; K22.70 Barrett's esophagus without dysplasia; M19.90 Unspecified osteoarthritis, unspecified site; D69.6 Thrombocytopenia, unspecified; Z96.659 Presence of unspecified artificial knee joint; Z79.84 Long term (current) use of oral hypoglycemic drugs; Z79.890 Hormone replacement therapy; Z79.899 Other long term (current) drug therapy; Z86.010 Personal history of colon polyps; Z85.53 Personal history of malignant neoplasm of renal pelvis; Z98.49 Cataract extraction status, unspecified eye; Z87.891 Personal history of nicotine dependence; Z20.822 Contact with and (suspected) exposure to COVID-19
CPT/HCPCS: 36415; 36600; 70491; 70491-26; 71045; 71045-26; 71275; 71275-26; 80048; 80053; 81001; 82803; 82962; 83605; 83735; 83880; 84100; 84145; 84484; 85025; 85379; 85610; 85730; 86140; 87040; 93005; 93010; 94761; 96365; 96375; 97161-GP; 99222; 99232; 99239; 99284; 99285-25; A9270-GY; J0696; J1650; J1815-GY; J2060; J2543; J3475; J7030; Q9967; U0002

== ENCOUNTER 2021-10-14 09:30 | Emergency (ER) | payer MEDICARE, OTHER ==
[2021-10-14 09:42] VITALS: BP 169/85; PULSE 109
[2021-10-14] MEDS ORDERED: Sodium Chloride 0.9% 10 ML Syringe FLUSH PRN ×2 (10:02→12:19)
--- NOTE | 2021-10-14 10:10 | EDM.PDOC ---
ED HPI GENERAL MEDICAL PROBLEM - General Chief Complaint: Respiratory Problem Stated Complaint: SOB Time Seen by Provider: 10/14/21 09:52 Source of Information: Reports: Patient, Family History Limitations: Reports: No Limitations - History of Present Illness INITIAL COMMENTS - FREE TEXT/NARRATIVE: The patient presents with shortness of breath. This started last night but his says it has been going on for about a couple weeks. He was just discharged from [facility] 4 days ago. He was there for the same and no diagnosis was given to him. He has no fever, chills, cough, chest pain, abdominal pain, nausea or vomiting. He has no history of lung problems like asthma or COPD. He has a history of CHF according to him. He has some swelling in his legs. He qu it smoking 50 years ago. Onset: Gradual Duration: Day(s): (last night) Severity: Moderate Improves with: Reports: None Worsens with: Reports: None Associated Symptoms: Reports: Shortness of Breath. Denies: Confusion, Chest Pain, Cough, Fever/Chills, Headaches - Related Data Allergies Allergy/AdvReac Type Severity Reaction Status Date / Time No Known Allergies Allergy Verified 10/14/21 09:42 Home Meds: Home Meds Finasteride [Proscar] 5 mg PO BEDTIME 06/15/15 [History] Latanoprost 2.5 ml OP BEDTIME 06/15/15 [History] Levothyroxine Sodium [Synthroid] 224 mcg PO DAILY 06/15/15 [History] Omeprazole 20 mg PO DAILY 06/15/15 [History] Tamsulosin [Flomax] 0.4 mg PO BEDTIME 06/15/15 [History] Simvastatin [Zocor] 20 mg PO BEDTIME 05/24/16 [History] Brimonidine [Alphagan 0.2% Ophth Soln] 1 drop EYEBOTH DAILY 06/21/17 [History] Losartan [Cozaar] 50 mg PO DAILY 06/01/19 [History] Bumetanide 1 mg PO DAILY 12/12/20 [History] metFORMIN HCl [Metformin HCl] 500 mg PO BID 12/13/20 [History] Past Medical History HEENT History: Reports: Cataract, Glaucoma, Hard of Hearing, Impaired Vision, Retinal Detachment Other HEENT History: wears glasses and hearing aides and lower partial plate Cardiovascular History: Reports: Heart Failure, High Cholesterol, Hypertension Other Cardiovascular History: edema Respiratory History: Reports: Other (See Below) Other Respiratory History: bronchitis Gastrointestinal History: Reports: Colon Polyp, GERD, Hiatal Hernia Other Gastrointestinal History: Loera's esophagus Genitourinary History: Reports: BPH Other Genitourinary History: stage two renal disease SOCIAL WORKER PSYCHIATRIC History: Reports: None Musculoskeletal History: Reports: Osteoarthritis Other Musculoskeletal History: plantar fascitis, meniscus tear, left knee pain, left knee patellar malalignment, quadriceps tightening Neurological History: Reports: None Psychiatric History: Reports: None Endocrine/Metabolic History: Reports: Diabetes, Type II, Hypothyroidism Hematologic History: Reports: None, Other (See Below) Other Hematologic History: thrombocytopenia Immunologic History: Reports: None 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 not cancerous at this point. Dermatologic History: Reports: None Other Dermatologic History: Atypical mole - Infectious Disease History Infectious Disease History: Reports: Chicken Pox, Measles, Mumps - Past Surgical History Head Surgeries/Procedures: Reports: None HEENT Surgical History: Reports: Adenoidectomy, Cataract Surgery, Detached Retina, Oral Surgery, Tonsillectomy Respiratory Surgical History: Reports: None GI Surgical History: Reports: Appendectomy, Colonoscopy, EGD Male Surgical History: Reports: None Endocrine Surgical History: Reports: None Neurological Surgical History: Reports: None Musculoskeletal Surgical History: Reports: Arthroscopic Knee, Knee Replacement Dermatological Surgical History: Reports: None Social & Family History - Family History Family Medical History: No Pertinent Family History Oncologic: Reports: Prostate - Tobacco Use Tobacco Use Status *Q: Never Tobacco User Second Hand Smoke Exposure: No - Caffeine Use Caffeine Use: Reports: None Caffeine Use Comment: drinks pop once in a while - Recreational Drug Use Recreational Drug Use: No - Living Situation & Occupation Living situation: Reports: , with Spouse Occupation: Retired ED ROS GENERAL - Review of Systems Review Of Systems: See Below Constitutional: Reports: No Symptoms HEENT: Reports: No Symptoms Respiratory: Reports: Shortness of Breath. Denies: Cough Cardiovascular: Reports: No Symptoms Endocrine: Reports: No Symptoms GI/Abdominal: Reports: No Symptoms : Reports: No Symptoms Musculoskeletal: Reports: No Symptoms Skin: Reports: No Symptoms Neurological: Reports: No Symptoms ED EXAM, GENERAL - Physical Exam Exam: See Below Exam Limited By: No Limitations General Appearance: Alert, No Apparent Distress Ears: Normal External Exam Nose: Normal Inspection Head: Atraumatic, Normocephalic Neck: Normal Inspection Respiratory/Chest: No Respiratory Distress, Decreased Breath Sounds Cardiovascular: Regular Rate, Rhythm, No Edema, No Rub GI/Abdominal: Soft, Non-Tender, No Organomegaly Extremities: Normal Inspection Neurological: Alert, Oriented, No Motor/Sensory Deficits #1 Interpretation EKG Date: 10/14/21 Time: 10:04 Rhythm: Other (sinus tachycardia) Rate (Beats/Min): 117 [place]: Normal P-Wave: Present QRS: RBBB ST-T: Normal QT: Normal Course - Vital Signs Last Recorded V/S: Last Vital Signs Temp 97.7 F 10/14/21 09:41 Pulse 109 H 10/14/21 09:41 Resp 22 H 10/14/21 09:41 BP 169/85 H 10/14/21 09:41 Pulse Ox 97 10/14/21 10:23 - Orders/Labs/Meds Orders: Active Orders 24 hr Category Date Time Status Cardiac Monitoring [RC] . DIRECTED Care 10/14/21 10:02 Active Oxygen Therapy [RC] PRN Care 10/14/21 10:02 Active Peripheral IV Care [RC] . DIRECTED Care 10/14/21 10:03 Active COVID-19/FLU A+B [MOLEC] Stat Lab 10/14/21 09:47 Results Sodium Chloride 0.9% [Normal Saline] 100 ml Med 10/14/21 12:30 Active IV ASDIRECTED Sodium Chloride 0.9% [Saline Flush] Med 10/14/21 10:02 Active 10 ml FLUSH ASDIRECTED PRN Sodium Chloride 0.9% [Saline Flush] Med 10/14/21 12:19 Active 10 ml FLUSH ONETIME PRN Peripheral IV Insertion Adult [OM.PC] Stat Oth 10/14/21 10:02 Ordered EKG 12 Lead [EK] Stat Ther 10/14/21 09:55 Ordered Medication Orders Sodium Chloride (Normal Saline) 100 mls @ 75 mls/hr IV ASDIRECTED ROSE Last Admin: 10/14/21 12:45 Dose: 75 mls/hr Documented by: MORRIS Sodium Chloride (Sodium Chloride 0.9% 10 Ml Syringe) 10 ml FLUSH ASDIRECTED PRN PRN Reason: Keep Vein Open Last Admin: 10/14/21 10:23 Dose: 10 ml Documented by: RANDY Sodium Chloride (Sodium Chloride 0.9% 10 Ml Syringe) 10 ml FLUSH ONETIME PRN PRN Reason: IV FLUSH Last Admin: 10/14/21 12:45 Dose: 10 ml Documented by: MORRIS Labs: Laboratory Tests 10/14/21 10/14/21 10/14/21 Range/Units 09:47 10:00 10:00 WBC 8.18 (4.23-9.07) K/mm3 RBC 4.75 (4.63-6.08) M/mm3 Hgb 14.3 (13.7-17.5) gm/dl Hct 44.1 (40.1-51.0) % MCV 92.8 H (79.0-92.2) fl MCH 30.1 (25.7-32.2) pg MCHC 32.4 (32.2-35.5) g/dl RDW Std Deviation 46.1 H (35.1-43.9) fL Plt Count 215 (163-337) K/mm3 MPV 10.7 (9.4-12.3) fl Neut % (Auto) 81.4 H (34.0-67.9) % Lymph % (Auto) 11.1 L (21.8-53.1) % [place] % (Auto) 7.1 (5.3-12.2) % Eos % (Auto) 0.2 L (0.8-7.0) Baso % (Auto) 0.1 (0.1-1.2) % Neut # (Auto) 6.65 H (1.78-5.38) K/mm3 Lymph # (Auto) 0.91 L (1.32-3.57) K/mm3 [place] # (Auto) 0.58 (0.30-0.82) K/mm3 Eos # (Auto) 0.02 L (0.04-0.54) K/mm3 Baso # (Auto) 0.01 (0.01-0.08) K/mm3 PT 11.0 (9.7-12.0) SECONDS INR 0.99 APTT 23.6 (21.7-31.4) SECONDS D-Dimer, Quantitative 0.98 H (0.19-0.50) mg/L Sodium (136-145) mEq/L Potassium (3.5-5.1) mEq/L Chloride (98-107) mEq/L Carbon Dioxide (21-32) mEq/L Anion Gap (5-15) BUN (7-18) mg/dL Creatinine (0.7-1.3) mg/dL Est Cr Clr Drug Dosing mL/min Estimated GFR (MDRD) (>60) mL/min BUN/Creatinine Ratio (14-18) Glucose (70-99) mg/dL Lactic Acid (0.4-2.0) mmol/L Calcium (8.5-10.1) mg/dL Total Bilirubin (0.2-1.0) mg/dL AST (15-37) U/L ALT (16-63) U/L Alkaline Phosphatase (46-116) U/L Troponin I (0.00-0.056) ng/mL C-Reactive Protein (<1.0) mg/dL NT-Pro-B Natriuret Pep (0-450) pg/mL Total Protein (6.4-8.2) g/dl Albumin (3.4-5.0) g/dl Globulin gm/dL Albumin/Globulin Ratio (1-2) SARS-CoV-2 RNA (JUDI) Negative (NEGATIVE) 10/14/21 10/14/21 10/14/21 Range/Units 10:00 10:00 10:00 WBC (4.23-9.07) K/mm3 RBC (4.63-6.08) M/mm3 Hgb (13.7-17.5) gm/dl Hct (40.1-51.0) % MCV (79.0-92.2) fl MCH (25.7-32.2) pg MCHC (32.2-35.5) g/dl RDW Std Deviation (35.1-43.9) fL Plt Count (163-337) K/mm3 MPV (9.4-12.3) fl Neut % (Auto) (34.0-67.9) % Lymph % (Auto) (21.8-53.1) % [place] % (Auto) (5.3-12.2) % Eos % (Auto) (0.8-7.0) Baso % (Auto) (0.1-1.2) % Neut # (Auto) (1.78-5.38) K/mm3 Lymph # (Auto) (1.32-3.57) K/mm3 [place] # (Auto) (0.30-0.82) K/mm3 Eos # (Auto) (0.04-0.54) K/mm3 Baso # (Auto) (0.01-0.08) K/mm3 PT (9.7-12.0) SECONDS INR APTT (21.7-31.4) SECONDS D-Dimer, Quantitative (0.19-0.50) mg/L Sodium 138 (136-145) mEq/L Potassium 4.2 (3.5-5.1) mEq/L Chloride 102 (98-107) mEq/L Carbon Dioxide 26 (21-32) mEq/L Anion Gap 14.2 (5-15) BUN 27 H (7-18) mg/dL Creatinine 1.5 H (0.7-1.3) mg/dL Est Cr Clr Drug Dosing 34.47 mL/min Estimated GFR (MDRD) 44 (>60) mL/min BUN/Creatinine Ratio 18.0 (14-18) Glucose 160 H (70-99) mg/dL Lactic Acid 3.2 H* (0.4-2.0) mmol/L Calcium 10.4 H (8.5-10.1) mg/dL Total Bilirubin 0.8 (0.2-1.0) mg/dL AST 16 (15-37) U/L ALT 20 (16-63) U/L Alkaline Phosphatase 80 (46-116) U/L Troponin I < 0.017 (0.00-0.056) ng/mL C-Reactive Protein 1.2 H* (<1.0) mg/dL NT-Pro-B Natriuret Pep 58 (0-450) pg/mL Total Protein 7.0 (6.4-8.2) g/dl Albumin 3.6 (3.4-5.0) g/dl Globulin 3.4 gm/dL Albumin/Globulin Ratio 1.1 (1-2) SARS-CoV-2 RNA (JUDI) (NEGATIVE) 10/14/21 Range/Units 13:00 WBC (4.23-9.07) K/mm3 RBC (4.63-6.08) M/mm3 Hgb (13.7-17.5) gm/dl Hct (40.1-51.0) % MCV (79.0-92.2) fl MCH (25.7-32.2) pg MCHC (32.2-35.5) g/dl RDW Std Deviation (35.1-43.9) fL Plt Count (163-337) K/mm3 MPV (9.4-12.3) fl Neut % (Auto) (34.0-67.9) % Lymph % (Auto) (21.8-53.1) % [place] % (Auto) (5.3-12.2) % Eos % (Auto) (0.8-7.0) Baso % (Auto) (0.1-1.2) % Neut # (Auto) (1.78-5.38) K/mm3 Lymph # (Auto) (1.32-3.57) K/mm3 [place] # (Auto) (0.30-0.82) K/mm3 Eos # (Auto) (0.04-0.54) K/mm3 Baso # (Auto) (0.01-0.08) K/mm3 PT (9.7-12.0) SECONDS INR APTT (21.7-31.4) SECONDS D-Dimer, Quantitative (0.19-0.50) mg/L Sodium (136-145) mEq/L Potassium (3.5-5.1) mEq/L Chloride (98-107) mEq/L Carbon Dioxide (21-32) mEq/L Anion Gap (5-15) BUN (7-18) mg/dL Creatinine (0.7-1.3) mg/dL Est Cr Clr Drug Dosing mL/min Estimated GFR (MDRD) (>60) mL/min BUN/Creatinine Ratio (14-18) Glucose (70-99) mg/dL Lactic Acid 1.8 (0.4-2.0) mmol/L Calcium (8.5-10.1) mg/dL Total Bilirubin (0.2-1.0) mg/dL AST (15-37) U/L ALT (16-63) U/L Alkaline Phosphatase (46-116) U/L Troponin I (0.00-0.056) ng/mL C-Reactive Protein (<1.0) mg/dL NT-Pro-B Natriuret Pep (0-450) pg/mL Total Protein (6.4-8.2) g/dl Albumin (3.4-5.0) g/dl Globulin gm/dL Albumin/Globulin Ratio (1-2) SARS-CoV-2 RNA (JUDI) (NEGATIVE) Meds: Medications Generic Name Dose Route Start Last Admin Trade Name Freq PRN Reason Stop Dose Admin Sodium Chloride 100 mls @ 75 mls/hr 10/14/21 12:30 10/14/21 12:45 Normal Saline IV 75 mls/hr ASDIRECTED ROSE Administration Sodium Chloride 10 ml 10/14/21 10:02 10/14/21 10:23 Sodium Chloride 0.9% 10 Ml Syringe FLUSH 10 ml ASDIRECTED PRN Administration Keep Vein Open Sodium Chloride 10 ml 10/14/21 12:19 10/14/21 12:45 Sodium Chloride 0.9% 10 Ml Syringe FLUSH 10 ml ONETIME PRN Administration IV FLUSH Discontinued Medications Generic Name Dose Route Start Last Admin Trade Name Freq PRN Reason Stop Dose Admin Diphenhydramine HCl 25 mg 10/14/21 12:22 10/14/21 12:29 Diphenhydramine 50 Mg/Ml Sdv IVPUSH 10/14/21 12:23 Not Given ONETIME ONE Furosemide 80 mg 10/14/21 10:25 10/14/21 11:06 Furosemide 40 Mg/4 Ml Vial IVPUSH 10/14/21 10:26 80 mg NOW ONE Administration Sodium Chloride 1,000 mls @ 1,000 mls/hr 10/14/21 10:15 Normal Saline IV .BOLUS ROSE Iopamidol 100 ml 10/14/21 12:19 10/14/21 12:45 Iopamidol 755 Mg/Ml 100 Ml Bottle IVPUSH 10/14/21 12:20 100 ml ONETIME ONE Administration Lorazepam 0.5 mg 10/14/21 12:25 10/14/21 12:29 Lorazepam 2 Mg/Ml Sdv IVPUSH 10/14/21 12:26 0.5 mg ONETIME ONE Administration - Re-Assessments/Exams Free Text/Narrative Re-Assessment/Exam: 10/14/21 10:10 I ordered oxygen PRN, IV saline lock, EKG, CXR and labs. His EKG shows a NSR and RBBB with no acute changes. His CXR shows nothing acute. 10/14/21 13:37 His CBC looks good. His D-dimer was slightly elevated at 0.98. His creatinine was elevated at 1.5. His lactic acid was elevated at 3.2. His CRP was elevated at 1.2. His BNP was normal along with his troponin. I have ordered a CT angio of his chest. I also ordered some lasix 80mg IV. His CT shows no findings of pulmonary embolism. Single stale enlarged lymph node within the anterior mediastinum. Changes in size are due to difference in measurement technique. Mild chronic change within both lung bases. Emphysematous change is also noted. Incidental abdominal findings as noted above. No change is seen from prior CT chest. The lasix is working good. He has urinated multiple times and he feels better. His repeat lactic acid is normal. I will discharge him home and have him double on his bumex for 2 days. Departure - Departure Time of Disposition: 13:45 Disposition: Home, Self-Care 01 Condition: Good Clinical Impression: CHF (congestive heart failure) Qualifiers: Heart failure type: other Qualified Code(s): I50.9 - Heart failure, unspecified - Discharge Information *PRESCRIPTION DRUG MONITORING PROGRAM REVIEWED*: Not Applicable *COPY OF PRESCRIPTION DRUG MONITORING REPORT IN PATIENT [place]: Not Applicable Referrals: Carl Esquivel MD [Primary Care Provider] - 1 Week Forms: ED Department Discharge Additional Instructions: Take your medications as prescribed. If you have more shortness of breath double up on your bumex for a couple days. Please return if you are worse. Sepsis Event Note (ED) - Focused Exam Vital Signs: Vital Signs Temp Pulse Resp BP Pulse Ox Pulse Ox 10/14/21 10:23 97 10/14/21 09:41 97.7 F 109 H 22 H 169/85 H 93 L - My Orders Last 24 Hours: My Active Orders 10/14/21 09:47 COVID-19/FLU A+B [MOLEC] Stat 10/14/21 09:55 EKG 12 Lead [EK] Stat 10/14/21 10:02 Cardiac Monitoring [RC] . DIRECTED Oxygen Therapy [RC] PRN Sodium Chloride 0.9% [Saline Flush] 10 ml FLUSH ASDIRECTED PRN Peripheral IV Insertion Adult [OM.PC] Stat 10/14/21 10:03 Peripheral IV Care [RC] . DIRECTED 10/14/21 12:19 Sodium Chloride 0.9% [Saline Flush] 10 ml FLUSH ONETIME PRN 10/14/21 12:30 Sodium Chloride 0.9% [Normal Saline] 100 ml IV ASDIRECTED - Assessment/Plan Last 24 Hours: My Active Orders 10/14/21 09:47 COVID-19/FLU A+B [MOLEC] Stat 10/14/21 09:55 EKG 12 Lead [EK] Stat 10/14/21 10:02 Cardiac Monitoring [RC] . DIRECTED Oxygen Therapy [RC] PRN Sodium Chloride 0.9% [Saline Flush] 10 ml FLUSH ASDIRECTED PRN Peripheral IV Insertion Adult [OM.PC] Stat 10/14/21 10:03 Peripheral IV Care [RC] . DIRECTED 10/14/21 12:19 Sodium Chloride 0.9% [Saline Flush] 10 ml FLUSH ONETIME PRN 10/14/21 12:30 Sodium Chloride 0.9% [Normal Saline] 100 ml IV ASDIRECTED
[2021-10-14] MEDS ORDERED: Sodium Chloride 0.9% 1,000 ML IV SCH (10:15)
--- NOTE | 2021-10-14 10:21 | CR ---
Chest: Frontal view of the chest was obtained. Comparison: Prior chest CT study and chest x-ray of 12/12/20. Heart size is within normal limits. Tortuous thoracic aorta is seen. Slightly prominent epicardial fat pad and atelectasis is seen within the left lung base. Minimal scarring is seen within the right lung base. Lungs otherwise are clear. Bony structures shows prior right shoulder surgery. Osteopenia is also noted. Impression: 1. Slight atelectasis in epicardial fat pad within the left base. 2. Other findings as noted above. Nothing acute is appreciated. Diagnostic code #2
[2021-10-14] MEDS ORDERED: Furosemide 40 MG/4 ML VIAL IVPUSH ONE (10:25)
[2021-10-14 10:47] LABS: CORONAVIRUS COVID-19 NAA NEGATIVE (NEGATIVE)
[2021-10-14] MEDS ORDERED: Iopamidol 755 Mg/ML 100 ML Bottle IVPUSH ONE (12:19)
[2021-10-14] MEDS ORDERED: diphenhydrAMINE 50 MG/ML SDV IVPUSH ONE (12:22)
[2021-10-14] MEDS ORDERED: LORazepam 2 MG/ML SDV IVPUSH ONE (12:25)
[2021-10-14] MEDS ORDERED: Sodium Chloride 0.9% 100 ML IV SCH (12:30)
--- NOTE | 2021-10-14 13:06 | CT ---
CT chest Technique: Multiple axial sections through the chest were obtained. Intravenous contrast was utilized. Study has been performed as a pulmonary angiogram protocol. Comparison: Prior CT angiogram study of 12/12/20. Findings: Pulmonary arteries are well opacified. No filling defects are seen to indicate pulmonary embolism. Thoracic aorta shows atherosclerotic calcification with no aneurysm. Single enlarged lymph node is seen anteriorly within the mediastinum which is stable from prior exam and measures approximately 2.1 cm. Other portions of the mediastinum show no other adenopathy. No axillary adenopathy is seen. Coronary artery calcification is noted. No pericardial thickening is seen. Small low density lesions are seen within the liver. Larger lesions have Hounsfield unit measurements of cysts. Largest lesion measures approximately 1.2 cm. Cyst is noted within the left kidney measuring 4.2 cm. Lung window settings were reviewed. Scattered emphysematous changes are seen. Slight interstitial change is seen within both lung bases which appear stable from prior study. Mild focal scarring within the right middle lobe is also seen which is stable. Bone window settings were reviewed which show mild scattered disc space narrowing and spurring within the spine. No acute osseous abnormality is appreciated. Impression: 1. No findings of pulmonary embolism. 2. Single stable enlarged lymph node within the anterior mediastinum. Changes in size are due to differences in measurement technique. 3. Mild chronic change within both lung bases. Emphysematous change is also noted. 4. Incidental abdominal findings as noted above. 5. No change is seen from prior CT chest. Diagnostic code #3
== END 2021-10-14 14:35 | disposition home or self-care (01) ==
LOC: JD.ED 09:30
DX: I11.0 Hypertensive heart disease with heart failure (principal); I50.9 Heart failure, unspecified; E78.00 Pure hypercholesterolemia, unspecified; K21.9 Gastro-esophageal reflux disease without esophagitis; N40.0 Benign prostatic hyperplasia without lower urinary tract symptoms; E11.9 Type 2 diabetes mellitus without complications; E03.9 Hypothyroidism, unspecified; Z79.899 Other long term (current) drug therapy; Z79.84 Long term (current) use of oral hypoglycemic drugs; Z20.822 Contact with and (suspected) exposure to COVID-19
CPT/HCPCS: 0240U; 36415; 71045; 71275; 80053; 83605; 83880; 84484; 85025; 85379; 85610; 85730; 86140; 93005; 96374; 96375; 99285; J1940; J2060; Q9967

== ENCOUNTER 2022-02-06 20:10 | Emergency (ER) | payer MEDICARE, OTHER ==
[2022-02-06 20:29] VITALS: BP 182/92; PULSE 90
[2022-02-06] MEDS ORDERED: Sodium Chloride 0.9% 10 ML Syringe FLUSH PRN (20:41)
[2022-02-06] MEDS ORDERED: HYDROmorphone 0.5 MG/0.5 ML Syringe IVPUSH ONE (20:42)
[2022-02-06] MEDS ORDERED: Sodium Chloride 0.9% 1,000 ML IV SCH (20:45)
[2022-02-06] MEDS ORDERED: LORazepam 2 MG/ML SDV IVPUSH ONE (22:10)
[2022-02-07] MEDS ORDERED: Tamsulosin 0.4 MG Cap.ER PO ONE (00:07)
== END 2022-02-07 00:17 | disposition home or self-care (01) ==
LOC: JD.ED 20:10
DX: N13.2 Hydronephrosis with renal and ureteral calculous obstruction (principal); I11.0 Hypertensive heart disease with heart failure; I50.9 Heart failure, unspecified; E78.00 Pure hypercholesterolemia, unspecified; K21.9 Gastro-esophageal reflux disease without esophagitis; E03.9 Hypothyroidism, unspecified; E11.9 Type 2 diabetes mellitus without complications; Z79.899 Other long term (current) drug therapy; Z79.84 Long term (current) use of oral hypoglycemic drugs; Z87.891 Personal history of nicotine dependence
CPT/HCPCS: 36415; 74177; 80053; 81001; 83690; 85025; 96374; 96375; 99284; A9270; J1170; J2060; J7030; 99285

== ENCOUNTER 2022-04-20 11:42 | Emergency (ER) | payer MEDICARE, OTHER ==
[2022-04-20 11:55] VITALS: BP 117/65; PULSE 115
[2022-04-20] MEDS ORDERED: Acetaminophen 325 MG Tab PO ONE (11:57)
[2022-04-20] MEDS ORDERED: Dextrose 5%-0.9% NaCl 1,000 ML IV SCH (12:00)
[2022-04-20] MEDS ORDERED: Magnesium Sulfate/Water 2 GM in Premix Bag 1 BAG IV ONE (14:32)
[2022-04-20 14:37] LABS: CORONAVIRUS COVID-19 NAA NEGATIVE (NEGATIVE)
== END 2022-04-20 16:25 | disposition home or self-care (01) ==
LOC: SUPCPDRO 11:42 → JD.ED 11:42
DX: J44.1 Chronic obstructive pulmonary disease with (acute) exacerbation (principal); J06.9 Acute upper respiratory infection, unspecified; I25.10 Atherosclerotic heart disease of native coronary artery without angina pectoris; I13.0 Hypertensive heart and chronic kidney disease with heart failure and stage 1 through stage 4 chronic kidney disease, or unspecified chronic kidney disease; E11.22 Type 2 diabetes mellitus with diabetic chronic kidney disease; N18.9 Chronic kidney disease, unspecified; I50.9 Heart failure, unspecified; E78.00 Pure hypercholesterolemia, unspecified; K21.9 Gastro-esophageal reflux disease without esophagitis; E03.9 Hypothyroidism, unspecified; N40.0 Benign prostatic hyperplasia without lower urinary tract symptoms; Z79.899 Other long term (current) drug therapy; Z20.822 Contact with and (suspected) exposure to COVID-19
CPT/HCPCS: 0240U; 36415; 71250; 80053; 82553; 83605; 83735; 83880; 84484; 85007; 85027; 85610; 85730; 86140; 87040; 93005; 96365; 99284; A9270; J3475; J7042

== ENCOUNTER 2022-04-23 11:24 | Emergency (ER) | payer MEDICARE, OTHER ==
[2022-04-23 11:48] VITALS: BP 168/78; PULSE 111
[2022-04-23] MEDS: Sodium Chloride 0.9% 10 ML Syringe FLUSH PRN ×2 (11:54→14:39)
[2022-04-23 12:47] LABS: ESTIMATED GFR 44 mL/min (>60)
[2022-04-23] MEDS ORDERED: Sodium Chloride 0.9% 1,000 ML IV STA (13:46)
[2022-04-23] MEDS ORDERED: Iopamidol 755 Mg/ML 100 ML Bottle IVPUSH ONE (14:09)
[2022-04-23] MEDS ORDERED: Sodium Chloride 0.9% 100 ML IV SCH (14:15)
[2022-04-23] MEDS ORDERED: LORazepam 2 MG/ML SDV IVPUSH ONE (14:26)
[2022-04-23] MEDS ORDERED: predniSONE 10 MG Tab PO ONE (15:36)
== END 2022-04-23 15:55 | disposition home or self-care (01) ==
LOC: JD.ED 11:24
DX: J44.1 Chronic obstructive pulmonary disease with (acute) exacerbation (principal); E11.22 Type 2 diabetes mellitus with diabetic chronic kidney disease; I13.0 Hypertensive heart and chronic kidney disease with heart failure and stage 1 through stage 4 chronic kidney disease, or unspecified chronic kidney disease; N18.2 Chronic kidney disease, stage 2 (mild); I50.9 Heart failure, unspecified; I25.10 Atherosclerotic heart disease of native coronary artery without angina pectoris; K21.9 Gastro-esophageal reflux disease without esophagitis; N40.0 Benign prostatic hyperplasia without lower urinary tract symptoms; E03.9 Hypothyroidism, unspecified; Z79.899 Other long term (current) drug therapy; Z87.891 Personal history of nicotine dependence
CPT/HCPCS: 36415; 71045; 71275; 80053; 83880; 84484; 85025; 85379; 86140; 93005; 96374; 99285; J2060; J3490; J7030; J7512; Q9967; 93010; 99284

== ENCOUNTER 2022-04-28 10:53 | Emergency (ER) | payer MEDICARE, OTHER ==
[2022-04-28 11:11] VITALS: BP 137/71; PULSE 122
[2022-04-28] MEDS ORDERED: Sodium Chloride 0.9% 10 ML Syringe FLUSH PRN (11:22)
[2022-04-28] MEDS ORDERED: LORazepam 2 MG/ML SDV IVPUSH ONE (11:24)
[2022-04-28] MEDS ORDERED: Sodium Chloride 0.9% 1,000 ML IV SCH (11:30)
[2022-04-28 11:48] LABS: ESTIMATED GFR 28 mL/min (>60)
[2022-04-28] MEDS ORDERED: Magnesium Sulfate/Water 4 GM in Premix Bag 1 BAG IV ONE (14:46)
[2022-04-28] MEDS ORDERED: HYDROmorphone 0.5 MG/0.5 ML Syringe IVPUSH ONE (15:28)
== END 2022-04-28 16:49 ==
LOC: JD.ED 10:53
DX: N20.0 Calculus of kidney (principal); E83.42 Hypomagnesemia; I11.0 Hypertensive heart disease with heart failure; I50.9 Heart failure, unspecified; I25.10 Atherosclerotic heart disease of native coronary artery without angina pectoris; K21.9 Gastro-esophageal reflux disease without esophagitis; E03.9 Hypothyroidism, unspecified; Z79.899 Other long term (current) drug therapy; Z79.82 Long term (current) use of aspirin; Z79.84 Long term (current) use of oral hypoglycemic drugs; Z90.49 Acquired absence of other specified parts of digestive tract
CPT/HCPCS: 36415; 74176; 80053; 81003; 83735; 85025; 86140; 96365; 96375; 99285; J1170; J2060; J3475; J3490; J7030

== ENCOUNTER 2022-07-18 06:58 | Emergency (ER) | payer MEDICARE, OTHER ==
[2022-07-18 07:19] VITALS: BP 165/90; PULSE 113
[2022-07-18] MEDS ORDERED: Albuterol/Ipratropium 3.0-0.5 MG/3 ML Neb Soln NEB ONE (07:24)
[2022-07-18] MEDS ORDERED: Sodium Chloride 0.9% 1,000 ML IV ONE (08:55)
[2022-07-18 09:25] LABS: CORONAVIRUS COVID-19 NAA NEGATIVE (NEGATIVE)
[2022-07-18] MEDS ORDERED: methylPREDNISolone Sodium Succinate 125 MG/2 ML SDV IVPUSH ONE (09:33)
== END 2022-07-18 10:25 | disposition home or self-care (01) ==
LOC: JD.ED 06:58
DX: R06.02 Shortness of breath (principal); I11.0 Hypertensive heart disease with heart failure; I50.9 Heart failure, unspecified; N28.9 Disorder of kidney and ureter, unspecified; I25.10 Atherosclerotic heart disease of native coronary artery without angina pectoris; E11.9 Type 2 diabetes mellitus without complications; Z79.899 Other long term (current) drug therapy; Z79.84 Long term (current) use of oral hypoglycemic drugs; Z90.49 Acquired absence of other specified parts of digestive tract; Z20.822 Contact with and (suspected) exposure to COVID-19
CPT/HCPCS: 0241U; 36415; 71046; 80053; 83605; 83735; 83880; 84484; 85025; 93005; 94640; 96361; 96374; 99285; J2930; J7030; 93010; 99284; J7620-GY

== ENCOUNTER 2022-07-28 12:50 | Emergency (ER) | payer MEDICARE, OTHER ==
[2022-07-28] MEDS ORDERED: Sodium Chloride 0.9% 10 ML Syringe FLUSH PRN ×2 (13:42→14:41)
[2022-07-28] MEDS ORDERED: Furosemide 40 MG/4 ML VIAL IVPUSH ONE (13:44)
[2022-07-28 14:12] LABS: ESTIMATED GFR 38 mL/min (>60)
[2022-07-28] MEDS ORDERED: Sodium Chloride 0.9% 1,000 ML IV SCH (14:30)
[2022-07-28] MEDS ORDERED: Iopamidol 755 Mg/ML 100 ML Bottle IVPUSH ONE (14:41)
[2022-07-28] MEDS ORDERED: Sodium Chloride 0.9% 100 ML IV SCH (14:45)
[2022-07-28 18:26] VITALS: BP 142/76; PULSE 76
== END 2022-07-28 18:00 | disposition home or self-care (01) ==
LOC: JD.ED 12:50
DX: R09.02 Hypoxemia (principal); I25.10 Atherosclerotic heart disease of native coronary artery without angina pectoris; E78.00 Pure hypercholesterolemia, unspecified; I11.0 Hypertensive heart disease with heart failure; I50.9 Heart failure, unspecified; E11.9 Type 2 diabetes mellitus without complications; E03.9 Hypothyroidism, unspecified; N40.0 Benign prostatic hyperplasia without lower urinary tract symptoms; Z79.899 Other long term (current) drug therapy; Z79.84 Long term (current) use of oral hypoglycemic drugs; Z20.822 Contact with and (suspected) exposure to COVID-19
CPT/HCPCS: 36415; 36600; 71045; 71275; 80053; 81003; 82803; 83605; 83735; 83880; 84484; 85025; 86140; 87040; 93005; 96361; 96374; 99285; J1940; J3490; Q9967; U0002

== ENCOUNTER 2022-07-31 09:13 | Emergency (ER) | payer MEDICARE, OTHER ==
[2022-07-31 09:32] VITALS: BP 161/74; PULSE 97
[2022-07-31] MEDS ORDERED: Furosemide 40 MG/4 ML VIAL IVPUSH ONE (10:20)
[2022-07-31] MEDS ORDERED: Sodium Chloride 0.9% 10 ML Syringe FLUSH PRN (10:20)
[2022-07-31] MEDS ORDERED: Sodium Chloride 0.9% 1,000 ML IV SCH (11:30)
[2022-07-31] MEDS ORDERED: LORazepam 2 MG/ML SDV IVPUSH ONE (11:32)
== END 2022-07-31 13:07 | disposition home or self-care (01) ==
LOC: JD.ED 09:13
DX: I27.81 Cor pulmonale (chronic) (principal); I11.0 Hypertensive heart disease with heart failure; I50.9 Heart failure, unspecified; E11.9 Type 2 diabetes mellitus without complications; E03.9 Hypothyroidism, unspecified; Z79.899 Other long term (current) drug therapy; Z79.84 Long term (current) use of oral hypoglycemic drugs
CPT/HCPCS: 36415; 71045; 80053; 81001; 82553; 83735; 83880; 84484; 85025; 85379; 85610; 85730; 86140; 96374; 99285; J1940; J3490; 99284